=== PATIENT | male | born 1945 | race Caucasian/White ===

== ENCOUNTER → 2021-03-08 09:15 | Outpatient (BNVA) | payer MEDICARE, SELFPAY | PROVIDERS: Family Provider Family Medicine; PCP Emergency Medicine Emergency Medical Services; Visit Provider Internal Medicine Pulmonary Disease | DX: Z01.812 Encounter for preprocedural laboratory examination (principal); Z20.822 Contact with and (suspected) exposure to COVID-19 | CPT/HCPCS: 87635 ==

== ENCOUNTER 2021-03-14 11:14 | Outpatient (CLI) | payer OTHER, MEDICARE, SELFPAY ==
--- NOTE | 2021-03-14 13:33 | PFTS_ITS ---
Date of Study:03/14/21 Date of Dictation: 03/14/2021 MECHANICS: Prebronchodilator forced vital capacity (FVC) is reduced. Prebronchodilator forced expiratory volume in one second (FEV1) is moderately reduced 58%.. FEV1/FVC is normal.. No postbronchodilator study performed. FLOW VOLUME LOOP: End expiratory limb scoping suggestive of small airway obstruction . LUNG VOLUMES: Not measured DIFFUSING CAPACITY FOR CARBON MONOXIDE: Severely reduced 34% . INTERPRETATION: The prebronchodilator spirometry consistent with moderate restriction. Lung volumes not measured. There is severe gas transfer defect. Please correlate clinically. MTDD
== END 2021-03-14 11:15 | disposition home or self-care (01) ==
PROVIDERS: PCP Emergency Medicine Emergency Medical Services; Visit Provider Internal Medicine Pulmonary Disease
DX: J44.9 Chronic obstructive pulmonary disease, unspecified (principal)
CPT/HCPCS: 94010; 94729

== ENCOUNTER 2021-04-12 10:40 | Outpatient (CLI) | payer OTHER, SELFPAY ==
--- NOTE | 2021-04-12 10:48 | CT_ITS ---
WS: [id number] LDCT LUNG CANCER SCREENING HISTORY: lung screening TECHNIQUE: Axial imaging performed from the apices to 1 cm below the costophrenic angles. Coronal and sagittal reformats are submitted with axial MIP series. All CT scans at [facility] use at least one of these dose optimization techniques: automated exposure control; mA and/or kV adjustment per patient size (includes targeted exams where dose is matched to clinical indication); or iterativ e reconstruction. DLP: 82.80 mGy.cm DIvol: Mean CTDIvol: 1.60 (mGy) COMPARISON: 10/20/2008 Diagnostic quality: Suboptimal due to significant motion artifact. Lung Nodules: Large soft tissue mass in the LEFT upper lobe with a mean diameter of 4.4 cm. This is a n elongated, ovoid mass anterior LEFT lobe mass. Additional area of atelectasis towards the lingula. With this amount of motion small nodules would be easily obscured. Very small layering pleural effusi ons or pleural thickening. Lungs: Pulmonary hyperexpansion from emphysema. Heart: Mild enlargement of the heart. Prior CABG. Pericardial effusion. Other findings: Dilated pulmonary artery to 4.2 cm. There is increased soft tissue at the LEFT hilum. This may be due to pulmonary enlargement of the lymph nodes should be considered taking into conside ration the mass in the LEFT upper lobe. Severe motion artifact through the upper abdomen. Extensive a therosclerotic changes within the suprarenal abdominal aorta with heavy calcification involving the c eliac axis and SMA. Mild hyperplasia of the adrenal glands. LEFT adrenal adenoma or hyperplasia was a lso seen on 2009 examination. Increase in thoracic kyphosis. CT/CT lung screening [id number] IMPRESSION: LUNG-RADS: 4B-Suspicious FOLLOW UP: PET/CT recommended OTHER FINDINGS (S MODIFIER): None. LEFT upper lobe mass highly suspicious for neoplasm until proven otherwise. Bro nchoscopy and PET/CT imaging recommended. LEFT hilar adenopathy not excluded.
== END 2021-04-12 10:41 | disposition home or self-care (01) ==
LOC: RAD 10:45
PROVIDERS: PCP Emergency Medicine Emergency Medical Services; Visit Provider Internal Medicine Pulmonary Disease
DX: Z12.2 Encounter for screening for malignant neoplasm of respiratory organs (principal); Z87.891 Personal history of nicotine dependence
CPT/HCPCS: 71271

== ENCOUNTER 2021-05-19 08:43 | Outpatient (CLI) | payer OTHER, SELFPAY ==
[2021-05-19 10:26] LABS: INR 1.11 (0.8-1.2)
[2021-05-19 10:48] VITALS: BMI 37.2
--- NOTE | 2021-05-19 12:29 | SUR.PREOP ---
pt arrived to be prepared for CT guided lung biopsy pt was placed into room and iv was started blood was drawn for pt/inr those results were pt 14.60 inr 1.11 while waiting on results to return the pt summary of meds and allergies was covered a new finding of an adverse reaction to contrast dye was stated by the pt while going over the pt med list the pt was taking 325mg of aspirin daily, cilostazol 50mg BID, and 1000mg fish oil the pt stated that he had taken all of these meds the day prior to this procedure was to take place once the results for the pt/inr came back Dr. Juarez came and discussed the medications with the pt and the decision was made to not have the procedure today and to reschedule for next week so the pt can be off of these meds to increase the pt safety level and keep bleeding to a minimum
== END 2021-05-19 13:11 | disposition home or self-care (01) ==
LOC: RAD 08:45
PROVIDERS: Radiology Diagnostic Radiology; PCP Emergency Medicine Emergency Medical Services; Visit Provider Internal Medicine Pulmonary Disease
DX: J44.9 Chronic obstructive pulmonary disease, unspecified (principal); I50.23 Acute on chronic systolic (congestive) heart failure; Z87.891 Personal history of nicotine dependence; I25.10 Atherosclerotic heart disease of native coronary artery without angina pectoris; Z12.2 Encounter for screening for malignant neoplasm of respiratory organs; I50.9 Heart failure, unspecified; R91.8 Other nonspecific abnormal finding of lung field
CPT/HCPCS: 36415; 85610; 87635; 99214; J2250; J3010; J7030

== ENCOUNTER → 2021-05-23 05:51 | Day surgery (SDC) | payer OTHER, SELFPAY ==
[2021-05-22 10:29] VITALS: BMI 35.6
--- NOTE | 2021-05-23 05:56 | ECG_ITS ---
[facility] Test Date: 2021-05-23 Pat Name: Tobias Song Department: Room: Gender: Male [employer]er: : 1945 Requested By: Veronica Marquis Order Number: [id number] Beverley MD: Valerio Das M.D. Measurements Intervals [place] Rate: 72 P: GA: QRS: 92 QRSD: 129 T: -4 QT: 408 QTc: 448 Interpretive Statements ATRIAL FIBRILLATION BORDERLINE RIGHT AXIS DEVIATION [QRS AXIS > 90] Possible INFERIOR MYOCARDIAL INFARCTION , PROBABLY OLD [40+ ms Q WAVE AND/OR ST/T ABNORMALITY IN II/aVF] Compared to ECG 09/08/2015 05:34:34 No significant changes Electronically Signed On 05-24-2021 16:57:43 CDT by Valerio Das M.D. [id number]
--- NOTE | 2021-05-23 06:28 | ANES.PREANE2 ---
Pre-Anesthetic Assessment Height/Weight: Height 1.91 m Weight 129.274 kg Operation Date: 05/23/21 07:00 Proposed Procedures p Silvia [id number]/[id number](Not Applicable) - Stephon Morales MD s Ebus(Not Applicable) - Stephon OspinarMD Was Beta Mirza taken within 24 hours: Yes Social No alcohol and No tobacco Exam alert, oriented x 3, clear to auscultation bilaterally and regular rate & rhythm Airway Submandibular: within normal limits Cervical ROM: within normal limits Mallampati: Class II Dentition: partials History/ROS No significant complaints Pulmonary Chronic Obstructive Pulmonary Disease, Exertional Dyspnea, Sleep Apnea (Does not use/tolerate CPAP, on home O2) and Shortness of Breath PFTS 03/14/21 INTERPRETATION: The prebronchodilator spirometry consistent with moderate restriction.? Lung volumes not measured.? There is severe gas transfer defect.? Please correlate clinically. CT 04/12/21 LEFT upper lobe mass highly suspicious for neoplasm until proven otherwise. Bronchoscopy and PET/CT imaging recommended. LEFT hilar adenopathy not excluded. CV/HEM Arrythmia (Afib), Coronary Artery Disease (S/P CABG) and Congestive Heart Failure METS < 4 None reported Hepatic None reported GI None reported Metabolic Diabetes Mellitus Musc/skel Osteoarthritis/DJD Neuropsych None reported Anesthetic Plan ASA status: 4 Anesthesia: Anesthesia Evaluation and General Other: Reviewed chart, new onset atrial fibrillation. No recent Echo. Discussed with Doctor Anair. He is planning on getting a TTE as part of his pulmonary work up. Given limited diagnostic cardiac follow up, poor functional capacity, new onset afib, and plan for TTE case cancelled for cardiac work up and TTE. Risk of > 500 ml blood loss (7ml/kg in children): No Medications/Allergies Home Medications Medication Instructions Recorded Confirmed Last Taken Type albuterol sulfate 90 mcg/actuation 2 puff INHALATION Q6H PRN 01/25/21 05/23/21 05/22/21 History aerosol inhaler (ProAir HFA) aspirin 325 mg capsule 325 mg PO QDAY cap 01/25/21 05/23/21 05/18/21 History cholecalciferol (vitamin D3) 25 25 mcg PO DAILY 01/25/21 05/23/21 05/18/21 History mcg (1,000 unit) capsule cilostazol 100 mg tablet 50 mg PO BID tab 01/25/21 05/23/21 05/18/21 History empagliflozin 10 mg tablet 10 mg PO DAILY 01/25/21 05/22/21 05/22/21 History (Jardiance) insulin glargine 100 unit/mL 3 unit SUBCUT .evening ml 01/25/21 05/23/21 05/22/21 History subcutaneous solution (Lantus 1.5 units U-100 Insulin) lisinopril 40 mg tablet 20 mg PO BID tab 01/25/21 05/23/21 05/22/21 History nebulizers #1 ea 01/25/21 05/19/21 Unknown Rx omega-3 fatty acids 1,000 mg 1,000 mg PO BID 01/25/21 05/23/21 05/18/21 History capsule (Fish Oil Concentrate) rosuvastatin 40 mg tablet 20 mg PO DAILY tab 01/25/21 05/23/21 05/22/21 History sertraline 100 mg tablet 100 mg PO DAILY 01/25/21 05/22/21 05/22/21 History topiramate 200 mg tablet 200 mg PO BID 01/25/21 05/22/21 05/22/21 History carvedilol 12.5 mg tablet 6.25 mg PO BID tab 02/01/21 05/23/21 05/23/21 History furosemide 20 mg tablet 20 mg PO DAILY PRN 02/01/21 05/23/21 05/21/21 History multivitamin 1 tab PO DAILY 02/01/21 05/23/21 05/18/21 History budesonide 160 mcg-glycopyr 9 2 inh INHALATION BID #10.7 g 05/19/21 05/22/21 05/22/21 Rx mcg-formot 4.8 mcg/actuation HFA inhaler (Breztri Aerosphere) tamsulosin 0.4 mg capsule 0.4 mg PO DAILY 05/19/21 05/22/21 05/22/21 History Allergies Allergy/AdvReac Type Severity Reaction Status Date / Time Iodinated Contrast Media Allergy ADR-Itching Verified 05/22/21 10:19 PFS Anesthesia Social History Smoking and tobacco status: former smoker Quit status (tobacco): has quit using tobacco Year quit tobacco: 2020 Former quit date comment: 3ppd x 63years, started age 13 Data Anesthesia Cardiac Studies: No Data to Display
[2021-05-23 06:30] VITALS: BP 161/86; PULSE 78; RESP 20; TEMP 36.1; O2SAT 91
[2021-05-23] MEDS: sodium chloride 0.9% 1,000 ML 30 ML IV (06:38)
--- NOTE | 2021-05-23 07:37 | PM.MISC ---
Miscellaneous Note Purpose of Documentation: Patient here for navigational Bronchoscopy guided biopsy of ?elongated, ovoid mass anterior LEFT Upper lobe mass. Improved. His EKG showed new onset atrial fibrillation.Currently rate controlled.I cancelled procedure and recommended to see cardiology as soon as possible and will obtain echocardiogram. Meanwhile I will talk to radiology to see if they can get CT-guided biopsy And after cardiology clearance I will plan to do navigational/EBUS For staging
== END ==
PROVIDERS: PCP Emergency Medicine Emergency Medical Services; Visit Provider Internal Medicine Pulmonary Disease
PROC: 0BJ08ZZ Inspection of Tracheobronchial Tree, Via Natural or Artificial Opening Endoscopic (ICD-10-PCS; CPT 31622; principal; 2021-05-23 07:00)
PROC: BB4BZZZ Ultrasonography of Pleura (ICD-10-PCS; 2021-05-23 07:00)
DX: R91.8 Other nonspecific abnormal finding of lung field (principal); I48.91 Unspecified atrial fibrillation; Z53.8 Procedure and treatment not carried out for other reasons; G47.30 Sleep apnea, unspecified; Z99.81 Dependence on supplemental oxygen; I25.10 Atherosclerotic heart disease of native coronary artery without angina pectoris; Z95.1 Presence of aortocoronary bypass graft; I50.9 Heart failure, unspecified; E11.9 Type 2 diabetes mellitus without complications; M19.90 Unspecified osteoarthritis, unspecified site; Z79.82 Long term (current) use of aspirin; Z79.4 Long term (current) use of insulin; Z87.891 Personal history of nicotine dependence
CPT/HCPCS: 80048; 83880; 84443; 85025; 93005; 99214; 99215; J1100; J2370; J2405; J2704; J3010; J3490; J7030

== ENCOUNTER 2021-05-26 07:47 | Outpatient (CLI) | payer OTHER, SELFPAY ==
[2021-05-26] VITALS (19 sets, daily range): BP systolic 131–177; BP diastolic 59–113; PULSE 42–99; RESP 12–38; TEMP 36.4–36.8; O2SAT 91–98; BMI 36.2
[2021-05-26] MEDS: sodium chloride 0.9% 1,000 ML 30 ML IV (08:41)
--- NOTE | 2021-05-26 08:46 | CT_ITS ---
WS: [id number] CT-GUIDED BIOPSY LEFT LUNG. HISTORY: left upper lobe nodule DLP: 1630.[address] scans at [facility] use at least one of these dose optimization techniques: automated e xposure control; mA and/or kV adjustment per patient size (includes targeted exams where dose is matc hed to clinical indication); or iterative reconstruction. Prior imaging studies, history and physical are reviewed. Procedure, risks and complications were exp lained to the patient and family. Consent is obtained. Soft tissue mass with adjacent groundglass attenuation atelectasis is localized to the LEFT upper lob e. This mass is targeted for biopsy. Skin is cleansed with 1 ChloraPrep and anesthetized with lidocai ne. Through a small dermatome a 20-gauge coaxial needle is inserted into the mass with no difficulty. 3 core biopsies are performed and placed in saline. Patient tolerated the procedure well. There is fullness also at the LEFT hilum with narrowing of the proximal LEFT upper lobe bronchus. The re is additional none soft tissue nodule in the RIGHT upper lobe measuring 1.9 x 1.7 cm. There is a s mall layering pleural effusion. No significant amount of bleeding at the biopsy site and no pneumothorax was evident at the end of th is examination. CT/CT biopsy lung [id number] IMPRESSION: 1. Uncomplicated core biopsy LEFT upper lobe mass. Specimen is placed in salin e and taken immediately to pathology after the procedure terminated. 2. No apparent complications. 3. Patient will be observed for 2 hours postprocedure for any complications.
[2021-05-26 08:53] LABS: INR 1.05 (0.8-1.2)
[2021-05-26] MEDS: fentaNYL 50 mcg/mL INJ 2mL 25 MCG IVP (10:27)
--- NOTE | 2021-05-26 11:25 | XR_ITS ---
WS: [id number] PORTABLE CHEST HISTORY: post CT guided lung BX, evaluate for pneumothorax. COMPARISON: 09/07/[address] 04/12/2021 No pneumothorax status post LEFT upper lobe mass biopsy. Focal consolidation in the central LEFT lung measures 5.7 x 4.0 cm. There may be a small amount of adjacent hemorrhage. No lobar collapse. RIGHT lung is clear. Cardiac size: Mildly enlarged cardiac silhouette. Prior CABG. Mediastinum/Aorta: Normal mediastinum. No osseous abnormality seen. XR/XR chest 1V portable [id number] IMPRESSION: No pneumothorax status post LEFT lung biopsy.
== END 2021-05-26 12:50 | disposition home or self-care (01) ==
PROVIDERS: Radiology Diagnostic Radiology; PCP Emergency Medicine Emergency Medical Services; Visit Provider Internal Medicine Pulmonary Disease
DX: R91.1 Solitary pulmonary nodule (principal)
CPT/HCPCS: 32408; 36415; 71045; 85610; 88307; 88342; 96374; J3010; J7030

== ENCOUNTER 2021-06-07 10:02 | Outpatient (CLI) | payer OTHER, SELFPAY ==
[2021-06-07 11:44] LABS: Anion Gap 16.2 (5-19); Blood Urea Nitrogen 31 mg/dL (8-23); Calcium 9.1 mg/dL (8.5-10.5); Carbon Dioxide 19 mmol/L (22-29); Chloride 109 mmol/L (98-107); Glucose 180 mg/dL (65-115); NT Pro B Type Natriuretic Pept 792 pg/mL (0-450); Osmolality Calculated 301 mOsm/kg (285-295); Potassium 4.2 mmol/L (3.5-5.1); Sodium 140 mmol/L (136-145)
== END 2021-06-07 10:03 | disposition home or self-care (01) ==
LOC: LAB 10:04
PROVIDERS: PCP Emergency Medicine Emergency Medical Services; Visit Provider Internal Medicine Cardiovascular Disease
DX: I25.10 Atherosclerotic heart disease of native coronary artery without angina pectoris (principal); I25.5 Ischemic cardiomyopathy; I48.91 Unspecified atrial fibrillation
CPT/HCPCS: 80048; 83880

== ENCOUNTER 2021-06-13 12:36 | Outpatient (CLI) | payer OTHER, SELFPAY ==
--- NOTE | 2021-06-13 13:00 | CT_ITS ---
WS: [id number] Exam: CT chest wo con [id number] Date/Time of Exam: 06/13/2021 1:02 PM Reason For Exam: VERAN Protocol DLP: 1699.[address] scans at [facility] use at least one of these dose optimization techniques: automated e xposure control; mA and/or kV adjustment per patient size (includes targeted exams where dose is matc hed to clinical indication); or iterative reconstruction. Compared to CT lung screening exam performed 04/12/2021. An enlarging left hilar mass is noted measuring approximately 7.6 x 7.5 cm. There is left hilar adeno julieta. There is mild narrowing of the distal left lower lobe bronchus. There is associated atelectasi s in the lingula. Single enlarged lymph node seen in the AP window. Mildly prominent nodes seen along the right pulmonary hilum. New 9.5 mm short axis lymph node seen in the retrosternal region. Several other 1 cm lymph nodes seen in the anterior pericarinal region. The trachea is patent. The thoracic aorta is normal in caliber. Coronary artery calcifications noted. 6 mm nodular density seen in the la teral aspect of the right upper lobe too small to characterize. Signs of previous median sternotomy. No destructive bone lesions are seen. Changes in the thoracic spine may indicate ankylosing spondylit is as well as degenerative change. Bilateral adrenal gland enlargement noted. The left adrenal gland appears to be chronically enlarged however there appears to be recent enlargement of the right adrena l gland. Adrenal metastasis not excluded. Possible sludge or tiny stones in the gallbladder. CT/CT chest wo con [id number] IMPRESSION: 1. Enlarging left hilar mass measuring 7.6 x 7.5 cm. This almost surely represe nts malignancy. There is left hilar adenopathy in mild narrowing of the distal left lower lobe bronchus. 2. Mild mediastinal lymphadenopathy. Also new nodularity identified along the d istal right pulmonary hilum that may represent metastatic rebekah disease. Single enlarged lymph node in the AP window. 3. 6 mm nodular density seen in the lateral aspect of the right upper lobe too small to characterize. 4. Chronically enlarged left adrenal gland. There may be recent enlargement of the right adrenal gland. Adrenal metastasis not excluded.
--- NOTE | 2021-06-13 14:15 | USCV_ITS ---
Tobias Song Age: 76 Gender: M : 1945 Exam Date: 06/13/2021 12:50 Ordering Phys: Stephon Morales MD Technologist: Exam Location: [facility] Indication: hx cad BP: 143 / 84 HR: 63 Rhythm: Sinus Technical Quality: MEASUREMENTS (Male / Female) Normal Values 2D ECHO LV Diastolic Diameter PLAX 5.3 cm 4.2 - 5.9 / 3.9 - 5.3 cm LV Systolic Diameter PLAX 3.8 cm IVS Diastolic Thickness 1.2 cm 0.6 - 1.0 / 0.6 - 0.9 cm IVS Systolic Thickness 1.5 cm LVPW Diastolic Thickness 1.7 cm 0.6 - 1.0 / 0.6 - 0.9 cm LVPW Systolic Thickness 1.9 cm LVOT Diameter 2.1 cm LV Ejection Fraction 2D Teich 54.5 % LV Ejection Fraction MOD 2C 60.6 % LV Ejection Fraction 2C AL 61.5 % LA Diameter 4.8 cm M-MODE Aortic Annulus Diameter 3.6 cm LA Ao Ratio MM 1.3 MV E Point Septal Separation 1.3 cm DOPPLER AV Peak Velocity 124.0 cm/s LVOT Peak Velocity 87.0 cm/s AV Area Cont Eq vti 2.5 cm squared AV Area Cont Eq pk 2.4 cm squared MV Area PHT 5.0 cm squared Mitral E to A Ratio 2.7 MV E' Velocity 51.0 cm/s Mitral E to MV E' Ratio 10.8 Mitral E to LV E' Lateral Ratio 8.8 Mitral E to LV E' Septal Ratio 13.9 TR Peak Velocity 155.0 cm/s TR Peak Gradient 9.6 mmHg TV Peak E Velocity 104.0 cm/s Right Atrial Pressure 3.0 mmHg Pulmonary Artery Systolic Pressu 12.6 mmHg PV Peak Velocity 88.0 cm/s FINDINGS Left Ventricle Normal left ventricular size. LV systolic function is normal with EF of 55-60%. No regional wall motion abnormalities. Diastolic function is indeterminate because of atrial fibrillation Right Ventricle The right ventricle is normal in size and function. Right Atrium The right atrium is normal in size. Left Atrium The left atrium is normal in size. Mitral Valve Structurally normal mitral valve without significant stenosis or prolapse. There is trace mitral regurgitation. Aortic Valve Structurally normal aortic valve without significant sclerosis or stenosis. There is no aortic regurgitation. Tricuspid Valve Structurally normal tricuspid valve without significant stenosis or regurgitation. Insufficient TR jet to calculate RVSP Pulmonic Valve Structurally normal pulmonic valve without significant stenosis. There is no pulmonic regurgitation. Pericardium Normal pericardium without effusion. Aorta Normal ascending aorta dimension. CONCLUSIONS LV systolic function is normal with EF of 55-60% Diastolic function is indeterminate because of atrial fibrillation There is trace mitral regurgitation. No comparison studies are available Cresencio Macias MD (Electronically Signed) Final Date: 26 Jun 2021 10:04 S
== END 2021-06-13 12:37 | disposition home or self-care (01) ==
LOC: RAD 12:37
PROVIDERS: PCP Emergency Medicine Emergency Medical Services; Visit Provider Internal Medicine Pulmonary Disease
DX: I25.10 Atherosclerotic heart disease of native coronary artery without angina pectoris
CPT/HCPCS: 71250; 93306

== ENCOUNTER → 2021-07-17 09:02 | Outpatient (BNVA) | payer OTHER, SELFPAY | PROVIDERS: PCP Emergency Medicine Emergency Medical Services; Referring Provider Internal Medicine Hematology & Oncology; Visit Provider Surgery | DX: C80.1 Malignant (primary) neoplasm, unspecified (principal) | CPT/HCPCS: 99202 ==

== ENCOUNTER 2021-07-19 05:44 | Day surgery (SDC) | payer OTHER, SELFPAY ==
[2021-07-18 13:59] VITALS: BMI 36.2
--- NOTE | 2021-07-19 | SCC_ITS ---
Procedure done: Mediport placement 3.7 seconds of fluoroscopic guidance, for a cumulative dose of 1.0 mGy, was provided to Dr. Heaton by the radiology department. C-arm images of the chest were saved for the patient's permanent record. [facility]
--- NOTE | 2021-07-19 05:56 | SC_ITS ---
WS: [id number] Exam: C-arm FL for CVA [id number] Date/Time of Exam: 07/19/2021 8:16 AM Reason For Exam: Left lung cancer Limited anterior-posterior C-arm images of the chest are submitted for evaluation. A right subclavian port has been placed and appears to end in the lower one third of the SVC in good position. The visualized right lung is completely expanded. Postoperative changes secondary to CABG s urgery. No other significant finding on this limited study.
--- NOTE | 2021-07-19 05:56 | XR_ITS ---
WS: [id number] Exam: XR chest 1V portable [id number] Date/Time of Exam: 07/19/2021 8:13 AM Reason For Exam: Postop mediport placement Comparison 09/07/2015. Prominent consolidated area seen in the mid left lung may represent a mass or focal pneumonia. Additi onal infiltrates are noted in the upper and lower left lung as well as the right basal region. The he art is enlarged. Signs of median sternotomy and CABG surgery. A right subclavian central line is note d ending in the lower one third of the SVC. Bony structures are intact. The mediastinum is normal in contour for technique. XR/XR chest 1V portable [id number] IMPRESSION: 1. Prominent focal pulmonary density in the mid left lung suggesting either a m ass or consolidated infiltrate. Additional diffuse infiltrates are seen in the upper and lower left lung and the right basal region. 2. Cardiac enlargement. Right subclavian central line in satisfactory position.
[2021-07-19 06:21] LABS: Glucose Point of Care 144 mg/dL (70-110)
--- NOTE | 2021-07-19 06:47 | P.ANESASSM_ITS ---
Pre-Anesthetic Assessment Height/Weight: Height 1.91 m Weight 131.542 kg Preop Diagnosis: Left lung cancer Operation Date: 07/19/21 07:00 Proposed Procedures p Portacath Placement 33253,C34.12(Not Applicable) - Blair Heaton DO Familial anesthetic complications: None Was Beta Mirza taken within 24 hours: Yes Was Clonidine taken within 24 hours: N/A Last intake: Intake Last Liquid Date 07/18/21 Last Liquid Time 23:00 Last Solid Date 07/18/21 Last Solid Time 17:00 Social No alcohol and No tobacco Exam alert, oriented x 3 and regular rate & rhythm b/l lung sounds diminished Airway Submandibular: within normal limits Cervical ROM: Other (Limited ) Mallampati: Class III Dentition: chipped and partials Comments: Comments: Missing multiple teeth Pulmonary Chronic Obstructive Pulmonary Disease and Sleep Apnea Chronic respiratory failure, on home O2 most of the time Lung cancer Pulmonary htn CV/HEM Atrial Fibrillation, Coronary Artery Disease, Congestive Heart Failure and Hypertension s/p CABG TTE 06/13/21 ? CONCLUSIONS ?LV systolic function is normal with EF of 55-60% ? Diastolic function is indeterminate because of atrial ?fibrillation ? There is trace mitral regurgitation.? ?No comparison studies are available EKG 05/23/21 Interpretive Statements ATRIAL FIBRILLATION BORDERLINE RIGHT AXIS DEVIATION? [QRS AXIS > 90] Possible INFERIOR MYOCARDIAL INFARCTION , PROBABLY OLD [40+ ms Q WAVE AND/OR ST/T ABNORMALITY IN II/aVF] Compared to ECG 09/08/2015 05:34:34 No significant changes Electronically Signed On 05-24-2021 16:57:43 CDT by Valerio Das M.D. [id number]: Chronic Renal Insufficiency Hepatic None reported GI Gastroesophageal Reflux Disease Metabolic Diabetes Mellitus Musc/skel Osteoarthritis/DJD Anesthetic Plan ASA status: 4 (76 year old obese male with lung cancer, DM, respiratory failure on home O2 most of the time, pulmonary htn, CAD, HTN, afib, and hx of CABG, CHF, cardiomyopathy) Anesthesia: Anesthesia Evaluation, General and MAC Other: We discussed risk and benefits of general anesthesia including PONV, sore throat (sometimes severe), corneal abrasion, positioning and peripheral nerve injuries, life threatening allergic reaction, post operative ICU admission requiring prolonged intubation, stroke, heart attack, , and rare incidences of recall. I discussed with the patient risks, goals, and benefits of MAC and general anesthesia. We discussed spectrum of MAC anesthesia including conversion to general as well as possibility of recall of intraoperative stimuli including discomfort/pain. Patient agrees to proceed with MAC or general anesthesia pending further discussion with surgeon. Medications/Allergies Home Medications Medication Instructions Recorded Confirmed Last Taken Type cholecalciferol (vitamin D3) 25 25 mcg PO DAILY 01/25/21 07/18/21 1 Week Ago History mcg (1,000 unit) capsule ~05/19/21 cilostazol 100 mg tablet 50 mg PO BID tab 01/25/21 07/18/21 05/25/21 History insulin glargine 100 unit/mL 3 unit SUBCUT .evening ml 01/25/21 07/18/21 05/25/21 History subcutaneous solution (Lantus U-100 Insulin) lisinopril 40 mg tablet 20 mg PO BID tab 01/25/21 07/18/21 05/25/21 History nebulizers #1 ea 01/25/21 07/18/21 Unknown Rx omega-3 fatty acids 1,000 mg 1,000 mg PO BID 01/25/21 07/18/21 1 Week Ago History capsule (Fish Oil Concentrate) ~05/19/21 rosuvastatin 40 mg tablet 20 mg PO DAILY tab 01/25/21 07/18/21 05/25/21 History sertraline 100 mg tablet 100 mg PO DAILY 01/25/21 07/18/21 05/25/21 History carvedilol 12.5 mg tablet 6.25 mg PO BID tab 02/01/21 07/19/21 07/18/21 History multivitamin 1 tab PO DAILY 02/01/21 07/18/21 1 Week Ago History ~05/19/21 tamsulosin 0.4 mg capsule 0.4 mg PO DAILY 05/19/21 07/18/21 05/24/21 History topiramate 200 mg tablet 200 mg PO DAILY tab 05/23/21 07/18/21 05/25/21 History aspirin 81 mg tablet,delayed 81 mg PO DAILY 06/29/21 07/18/21 Unknown History release empagliflozin 25 mg tablet See Rx Instructions PO DAILY 06/29/21 07/18/21 Unknown History (Jardiance) furosemide 20 mg tablet 20 mg PO DAILY 06/29/21 07/18/21 Unknown History allopurinol 100 mg tablet 100 mg PO TID #40 tab 07/13/21 07/18/21 Unknown Rx Allergies Allergy/AdvReac Type Severity Reaction Status Date / Time Iodinated Contrast Media Allergy ADR-Itching Verified 07/18/21 13:56 PFSH Anesthesia Medical History Chronic obstructive pulmonary disease Hx of type 2 diabetes mellitus Lung cancer SJ (obstructive sleep apnea) Pulmonary hypertension Shortness of breath on exertion Small cell lung cancer, left upper lobe Surgical History History of tonsillectomy and adenoidectomy Hx of abdominal surgery Hx of CABG Hx of foot surgery Hx of hammer toe correction Postsurgical aortocoronary bypass status Family History Mother CAD (coronary artery disease) Family/Other CAD (coronary artery disease) Dementia Diabetes Father CAD (coronary artery disease) Grandfather CAD (coronary artery disease) Grandmother CAD (coronary artery disease) Brother CAD (coronary artery disease) Sister CAD (coronary artery disease) Cancer Lung disease Sister Cancer Other Hypertension Denies family history of Clotting disorder Hyperlipidemia Psychiatric illness Chronic kidney disease (CKD) Suicide Anesthesia complication Bleeding disorder Stroke Social History Smoking and tobacco status: former smoker Quit status (tobacco): has quit using tobacco Year quit tobacco: 2020 Former quit date comment: 3ppd x 62years, started age 13 Alcohol intake: never Data Anesthesia Cardiac Studies: Echocardiogram 06/13/21
[2021-07-19 06:54] VITALS: BP 136/81; PULSE 69; RESP 20; TEMP 36.8; O2SAT 90
--- NOTE | 2021-07-19 06:55 | W.PM.OPSUD ---
Surgery/Procedure H&P Update DATE OF PROCEDURE: July 19, 2021 DATE H&P PERFORMED: 07/17/21 CHANGES TO PREVIOUS DOCUMENTATION: NONE PREOP DIAGNOSIS: Left lung cancer PRIMARY INDICATION FOR PROCEDURE: Left lung cancer PLANNED PROCEDURE: Operation Date: 07/19/21 07:00 Proposed Procedures p Portacath Placement 81374,C34.12(Not Applicable) - Blair Heaton DO
[2021-07-19] MEDS: sodium chloride 0.9% 1,000 ML 30 ML IV (07:00)
[2021-07-19] MEDS: heparin, porcine 1,000 unit/mL INJ 10 mL 10000 UNIT IRRIGATION (07:25)
[2021-07-19 07:55] VITALS: BP 106/58; PULSE 79; RESP 18; TEMP 36.6; O2SAT 92
--- NOTE | 2021-07-19 07:57 | PM.OP ---
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 Chemotherapy access is needed. The risks and benefits of the procedure, including but not limited to, bleeding, infection, infection requiring Mediport removal antibiotic therapy and repeat surgery, damage to surrounding structures, scar, numbness, pain, pneumothorax requiring thoracostomy tube, were explained to the patient. He is understanding of the risks and wishes to proceed. Procedure: Patient was taken to the operating room and placed supine on the operating room table. All bony prominences were padded. She was given IV sedation and monitored throughout the case by the anesthesia personnel. SCDs were placed and turned on. The arms were tucked to the side. Patient received Ancef 2 g preoperatively IV. The bilateral chest wall was prepped and draped in usual sterile fashion using chlorhexidine base prep. Sterile drapes were applied. We did procedure pause prior to beginning. An 18 gauge needle was placed in the right/left subclavian vein. Dark, nonpulsatile blood was aspirated. A guidewire was placed through the needle centrally toward the atrial/vena caval junction. Fluoroscopy visualized good placement. The needle was removed and the guidewire was clipped to the drape with a hemostat. Further local anesthetic was infiltrated in the soft tissues of the right chest wall and a #15 blade was used to make a horizontal skin incision. A subcutaneous Mediport pocket was created using Bovie cautery, dissecting down through the skin and subcutaneous tissues. Meticulous hemostasis was achieved. The Mediport was sutured in position using 3-0 vicryl suture x3. A #15 blade was used to make a small skin maisha around the guidewire insertion area. The Mediport tubing was tunneled through the subcutaneous tissues up to the needle insertion location. A dilator with a peel-away sheath was placed over the guidewire and placed centrally. After measuring with fluoroscopy, the Mediport tubing was cut to length so that the tip would end at the atrial/vena caval junction. The inner cannula and the guidewire were removed, leaving the dilator sheath in place. The Mediport was flushed. The tip of the catheter was inserted through the peel-away sheath and the peel-away sheath removed in the standard fashion. The Mediport was accessed with a straight Cohen needle and dark, nonpulsatile blood was aspirated and flushed using heparinized saline to hep-lock the Mediport. Final fluoroscopy visualization showed no kink in the catheter and the tip of the Mediport tubing near the atrial/vena caval junction. Both skin incisions were thoroughly irrigated and suctioned dry. Meticulous hemostasis noted. The Mediport incision was closed using interrupted 3-0 Vicryl suture for the deep dermal layer and 4-0 Vicryl run to close the skin edge. The right subclavian insertion site incision was closed with a single subcuticular stitch. Skin glue was applied. This was allowed to dry. Patient was awakened from anesthesia and transferred via her cart to the recovery room in stable condition. All needle, sponge, and instrument counts were correct per the operating personnel x2 counts.
--- NOTE | 2021-07-19 07:58 | P.PCN_ITS ---
PACU note Narrative: VSS, Good respiratory effort, report to CREDIT UNION MANAGER Exam: awake
--- NOTE | 2021-07-19 07:58 | PM.PACU ---
PACU note Narrative: VSS, Good respiratory effort, report to PUMP STATION OPERATOR Exam: awake
[2021-07-19 08:00] VITALS: BP 122/63; PULSE 66; RESP 18; O2SAT 91
[2021-07-19 08:05] VITALS: BP 122/66; PULSE 68; RESP 20; O2SAT 91
[2021-07-19 08:10] VITALS: BP 130/75; PULSE 69; RESP 18; TEMP 36.3; O2SAT 92
[2021-07-19] MEDS: HYDROcodone-acetaminophen 5-325 mg Tablet 1 TAB PO (08:39)
[2021-07-19 08:43] VITALS: BP 163/85; PULSE 79; RESP 20; TEMP 36.4; O2SAT 94
--- NOTE | 2021-07-19 09:28 | ANE.PACU2 ---
Inpatient post-anesthesia follow up: Airway intact: Yes Vital signs: Temperature 97.6 F Pulse Rate 79 Respiratory Rate 20 Blood Pressure 163/85 Pulse Oximetry 94 Oxygen Delivery Me thod Nasal Cannula Oxygen Flow Rate 3 Fraction of Inspir ed Oxygen Hydration adequate: Yes Nausea and vomiting: No Pain level: 1 Mental status: Baseline Additional Comments: Baseline O2 requirement
== END 2021-07-19 09:00 | disposition home or self-care (01) ==
PROVIDERS: PCP Emergency Medicine Emergency Medical Services; Visit Provider Surgery
PROC: (CPT 36561; principal; 2021-07-19 07:00)
DX: C34.90 Malignant neoplasm of unspecified part of unspecified bronchus or lung (principal); J44.9 Chronic obstructive pulmonary disease, unspecified; G47.30 Sleep apnea, unspecified; Z99.81 Dependence on supplemental oxygen; I48.91 Unspecified atrial fibrillation; I25.10 Atherosclerotic heart disease of native coronary artery without angina pectoris; I11.0 Hypertensive heart disease with heart failure; I50.9 Heart failure, unspecified; Z95.1 Presence of aortocoronary bypass graft; K21.9 Gastro-esophageal reflux disease without esophagitis; E11.9 Type 2 diabetes mellitus without complications; Z79.82 Long term (current) use of aspirin; Z85.3 Personal history of malignant neoplasm of breast; Z87.891 Personal history of nicotine dependence
CPT/HCPCS: 36561; 36416; 71045; 76000; 77001; 82962; C1788; J0690; J1644; J2704; J3010; J7030

== ENCOUNTER 2021-07-25 08:30 | Oncology outpatient (recurring) (ONCR) | payer OTHER, SELFPAY ==
[2021-06-29 14:30] LABS: Basophils # 0.1 10^3/uL (0.0-0.1); Basophils % 0.6 %; Eosinophils # 0.2 10^3/uL (0.0-0.8); Eosinophils % 2.4 %; Hematocrit 44.6 % (42.0-52.0); Lymphocytes # 2.2 10^3/uL (0.8-4.8); Lymphocytes % 27.3 %; Mean Corpuscular HGB Conc 31.4 g/dL (30.0-36.0); Mean Corpuscular Hemoglobin 30.2 pg (28.0-34.0); Mean Corpuscular Volume 96.1 fl (80-94); Mean Platelet Volume 9.3 fL (7.4-10.4); Monocytes # 0.9 10^3/uL (0.2-0.9); Monocytes % 10.5 %; Neutrophils # 4.75 10^3/uL (1.8-7.7); Neutrophils % 58.8 %; Nucleated Red Blood Cells % 0 %; Platelet Count 214 10^3/cmm (130-400); Red Blood Count 4.64 10^6/uL (4.1-5.3); Red Cell Distribution Width 15.7 % (12.1-15.1); White Blood Count 8.1 10^3/uL (4.0-10.0)
[2021-06-29 15:03] LABS: Alanine Aminotransferase 8 U/L (0-41); Albumin Level 3.5 g/dL (3.5-5.2); Alkaline Phosphatase 78 IU/L (40-130); Aspartate Amino Transferase 14 U/L (0-40); Blood Urea Nitrogen 33 mg/dL (8-23); Calcium 9.1 mg/dL (8.5-10.5); Carbon Dioxide 18 mmol/L (22-29); Chloride 109 mmol/L (98-107); Globulin 4.4 g/dL (1.3-4.6); Glucose 111 mg/dL (65-115); Osmolality Calculated 298 mOsm/kg (285-295); Sodium 140 mmol/L (136-145); Total Bilirubin 0.3 mg/dL (0.15-1.2); Total Protein 7.9 g/dL (6.6-8.7)
[2021-06-29 15:06] LABS: Anion Gap 17.3 (5-19); Potassium 4.3 mmol/L (3.5-5.1)
[2021-07-25 09:15] LABS: Basophils % 0.2 %; Eosinophils # 0.1 10^3/uL (0.0-0.8); Eosinophils % 0.9 %; Lymphocytes # 1.3 10^3/uL (0.8-4.8); Mean Corpuscular HGB Conc 31.7 g/dL (30.0-36.0); Mean Corpuscular Hemoglobin 30.2 pg (28.0-34.0); Mean Corpuscular Volume 95.3 fl (80-94); Mean Platelet Volume 8.8 fL (7.4-10.4); Monocytes # 0.7 10^3/uL (0.2-0.9); Monocytes % 7.7 %; Neutrophils # 6.53 10^3/uL (1.8-7.7); Neutrophils % 75.7 %; Nucleated Red Blood Cells % 0 %; Platelet Count 209 10^3/cmm (130-400); Red Cell Distribution Width 16.2 % (12.1-15.1); White Blood Count 8.6 10^3/uL (4.0-10.0)
[2021-07-25 09:30] VITALS: BMI 36.3
[2021-07-25 09:42] LABS: Alanine Aminotransferase 9 U/L (0-41); Albumin Level 3.6 g/dL (3.5-5.2); Alkaline Phosphatase 68 IU/L (40-130); Anion Gap 15.9 (5-19); Aspartate Amino Transferase 16 U/L (0-40); Blood Urea Nitrogen 26 mg/dL (8-23); Calcium 8.7 mg/dL (8.5-10.5); Carbon Dioxide 22 mmol/L (22-29); Chloride 105 mmol/L (98-107); Globulin 3.6 g/dL (1.3-4.6); Glucose 281 mg/dL (65-115); Osmolality Calculated 303 mOsm/kg (285-295); Potassium 3.9 mmol/L (3.5-5.1); Prostate Specific Antigen 0.216 ng/mL (0-4); Sodium 139 mmol/L (136-145); Total Bilirubin 0.3 mg/dL (0.15-1.2); Total Protein 7.2 g/dL (6.6-8.7)
[2021-07-25] MEDS: sodium chloride 0.9% 250 ML 75 ML IV (12:08)
[2021-07-25] MEDS: diphenhydrAMINE 50 mg/mL SDV 1mL 25 MG IVP (12:09)
[2021-07-25] MEDS: ondansetron 2 mg/ML SDV 2 mL 8 MG IVP (12:11)
[2021-07-25] MEDS: famotidine 20 mg/2 mL INJ IVP (12:13)
[2021-07-25] MEDS: fosaprepitant 150 MG in sodium chloride 0.9% 150 ML 300 MG IV (12:14)
[2021-07-25] MEDS: CARBOplatin 520 MG in sodium chloride 0.9% 500 ML 552 MG IV (15:02)
[2021-07-25 16:33] VITALS: BP 138/74; PULSE 74; RESP 22; TEMP 36.4; O2SAT 98
== END 2021-07-25 23:59 | disposition home or self-care (01) ==
PROVIDERS: PCP Emergency Medicine Emergency Medical Services; Visit Provider Internal Medicine Hematology & Oncology
DX: C34.12 Malignant neoplasm of upper lobe, left bronchus or lung (principal); J44.9 Chronic obstructive pulmonary disease, unspecified; Z99.81 Dependence on supplemental oxygen; G47.30 Sleep apnea, unspecified; I25.10 Atherosclerotic heart disease of native coronary artery without angina pectoris; Z95.5 Presence of coronary angioplasty implant and graft; E11.9 Type 2 diabetes mellitus without complications; Z79.4 Long term (current) use of insulin; Z79.899 Other long term (current) drug therapy; Z51.11 Encounter for antineoplastic chemotherapy
CPT/HCPCS: 36415; 80053; 84153; 85025; 96367; 96375; 96413; 96417; 99204; 99214; 99215; 99999; J1100; J1200; J1453; J2405; J3490; J7040; J7050; J9045; J9181

== ENCOUNTER 2021-08-02 09:25 | Oncology outpatient (recurring) (ONCR) | payer OTHER, SELFPAY ==
[2021-07-26] MEDS: ondansetron 2 mg/ML SDV 2 mL 8 MG IVP (10:54)
[2021-07-26] MEDS: sodium chloride 0.9% 250 ML 75 ML IV (10:54)
[2021-07-26 15:49] VITALS: BP 127/57; PULSE 78; RESP 22; TEMP 36.7; O2SAT 92
[2021-07-27 09:42] VITALS: BP 145/67; PULSE 78; RESP 20; TEMP 36.1; O2SAT 92
[2021-07-27] MEDS: sodium chloride 0.9% 250 ML 75 ML IV (10:03)
[2021-07-27] MEDS: palonosetron 0.25 mg/5 mL SDV IVP (10:03)
[2021-07-27 11:40] VITALS: BP 138/78; PULSE 72; RESP 18; TEMP 36.4; O2SAT 98
[2021-07-27] MEDS: pegfilgrastim 6 mg/0.6 mL Kit (onpro) SUBCUT (13:26)
[2021-08-02 10:04] LABS: Hematocrit 34.8 % (42.0-52.0); Hemoglobin 10.8 g/dL (11.7-16.6); Mean Corpuscular Hemoglobin 30.2 pg (28.0-34.0); Mean Corpuscular Volume 97.2 fl (80-94); Mean Platelet Volume 9.8 fL (7.4-10.4); Platelet Count 61 10^3/cmm (130-400); Red Blood Count 3.58 10^6/uL (4.1-5.3); Red Cell Distribution Width 16.2 % (12.1-15.1); White Blood Count 1.8 10^3/uL (4.0-10.0)
[2021-08-02 10:05] LABS: Alanine Aminotransferase 15 U/L (0-41); Alkaline Phosphatase 80 IU/L (40-130); Anion Gap 14.5 (5-19); Aspartate Amino Transferase 17 U/L (0-40); Blood Urea Nitrogen 74 mg/dL (8-23); Calcium 7.7 mg/dL (8.5-10.5); Carbon Dioxide 20 mmol/L (22-29); Chloride 107 mmol/L (98-107); Globulin 3.3 g/dL (1.3-4.6); Glucose 233 mg/dL (65-115); Osmolality Calculated 313 mOsm/kg (285-295); Potassium 4.5 mmol/L (3.5-5.1); Sodium 137 mmol/L (136-145); Total Bilirubin 0.2 mg/dL (0.15-1.2); Total Protein 6.3 g/dL (6.6-8.7)
[2021-08-02 11:22] LABS: Slide Review Slide Review Perform
[2021-08-02 11:26] LABS: Total Cells Counted 100 (0-100)
[2021-08-02 11:27] LABS: Eosinophils 1 %; Lymphocytes 28 %; Lymphocytes Absolute 0.8 10^3/cmm (1.2-3.4); Platelet Estimate Decreased (Normal); Segmented Neutrophils 54 %
== END 2021-08-24 23:59 | disposition home or self-care (01) ==
PROVIDERS: Nurse Practitioner Family; PCP Emergency Medicine Emergency Medical Services; Visit Provider Internal Medicine Hematology & Oncology
DX: C34.12 Malignant neoplasm of upper lobe, left bronchus or lung (principal); J44.9 Chronic obstructive pulmonary disease, unspecified; E11.59 Type 2 diabetes mellitus with other circulatory complications; I25.5 Ischemic cardiomyopathy; I48.91 Unspecified atrial fibrillation; I25.10 Atherosclerotic heart disease of native coronary artery without angina pectoris; I50.23 Acute on chronic systolic (congestive) heart failure; I11.0 Hypertensive heart disease with heart failure; D70.1 Agranulocytosis secondary to cancer chemotherapy; T45.1X5A Adverse effect of antineoplastic and immunosuppressive drugs, initial encounter; Z79.899 Other long term (current) drug therapy; Z99.81 Dependence on supplemental oxygen; Z87.891 Personal history of nicotine dependence; Z95.5 Presence of coronary angioplasty implant and graft; Z79.4 Long term (current) use of insulin; Z53.9 Procedure and treatment not carried out, unspecified reason
CPT/HCPCS: 36591; 80053; 85007; 85025; 96372; 96375; 96377; 96413; 99215; J2405; J2469; J2506; J7040; J7050; J9181

== ENCOUNTER 2021-08-02 12:21 | Inpatient (IN) | payer OTHER, MEDICARE, SELFPAY ==
[2021-08-02 14:42] VITALS: BP 165/77; PULSE 72; RESP 18; TEMP 37.2; O2SAT 92; BMI 36.3
[2021-08-02 17:25] VITALS: BP 235/183; PULSE 85; RESP 20; O2SAT 94; BMI 36.3
[2021-08-02 17:28] VITALS: O2SAT 97; BMI 36.3
--- NOTE | 2021-08-02 17:29 | XRR_ITS ---
PROCEDURE INFORMATION: Exam: XR Chest Exam date and time: 08/02/2021 5:41 PM Age: 76 years old Clinical indication: Shortness of breath; Additional info: Dyspnea TECHNIQUE: Imaging protocol: XR of the chest. Views: 1 view. COMPARISON: 1. CR XR chest 1V portable [id number] 07/19/2021 8:[address] chest wo con [id number] 06/13/2021 1:10 PM FINDINGS: Tubes, catheters and devices: Right infusion port catheter remains in place with its tip in the superior vena cava. Lungs: Visualized portions of the right lung remain clear. There is left upper lobe mass with increase in volume loss in the left pulmonary apex. There has also been significant increase in left lower lobe atelectasis. Pleural spaces: There may be left pleural effusion. Heart/Mediastinum: There is mild cardiomegaly. Bones/joints: Sternotomy wires and mediastinal surgical clips are present, consistent with previous coronary arterial bypass grafting. XR/XR chest 1V portable [id number] IMPRESSION: 1. Left upper lobe mass probably not significantly changed. 2. Increasing left-sided atelectasis. 3. Suspected left pleural effusion
--- NOTE | 2021-08-02 17:32 | W.ED.GENADLT ---
Documented by User: Pratik Vanegas MD 08/08/21 20:33 HPI - General Adult General: Chief complaint: ER Hold Stated complaint: Low blood Counts, Low bp Time Seen by Provider: 08/02/21 17:09 History of Present Illness: Patient is a 76-year-old male with history of COPD, lung cancer currently on chemotherapy followed by Dr. Patricio presenting to the emergency room for concerns of lab abnormality and generalized weakness, and decreased p.o. intake. Patient tells me last from chemotherapy was 6 days ago. Since then, patient had 1 episode fever shortly after chemotherapy patient has not had any fever in the last few days. Patient tells me that he has not been eating well and has been having cough shortness of breath. Patient also reports falling [address] Patricio called the emergency room after routine blood work earlier today and requested patient stay in the hospital for observation. Onset: 6 days ago Duration:6 days Location:home Severity:moderate Associated symptoms: Reports malaise and nausea; Deny chest pain, dyspnea, rash, palpitations or vomiting Review of Systems Const: Reports: fatigue, malaise and other (+generalized weakness); Denies: fever(s) or chills Eyes: Denies: change in vision ENMT: Denies: mouth pain Card: Denies: chest pain or palpitations Resp: Reports: non-productive cough; Denies: dyspnea GI: Reports: nausea, diarrhea and other (+decreased appetite); Denies: abdominal pain or vomiting : Denies: dysuria Musc: Denies: extremity pain Skin/Breast: Denies: rash or new lesions Neuro: Denies: weakness in extremities Psych: Reports: other (Normal mood) Chucky/Lymph: Denies: easy bruising PFSH ED PFSH: Medical History Anxiety and depression BPH (benign prostatic hyperplasia) Chronic obstructive pulmonary disease Baseline 3 L oxygen CKD (chronic kidney disease) Hx of type 2 diabetes mellitus Ischemic cardiomyopathy Lung cancer New onset atrial fibrillation Obesity hypoventilation syndrome SJ (obstructive sleep apnea) Peripheral vascular disease Pulmonary hypertension Shortness of breath on exertion Small cell lung cancer, left upper lobe Surgical History (Updated 08/03/21 @ 14:45 by Get Orantes MD) History of tonsillectomy and adenoidectomy Hx of abdominal surgery Hx of appendectomy Hx of CABG Hx of foot surgery Hx of hammer toe correction Postsurgical aortocoronary bypass status Family History Mother CAD (coronary artery disease) Family/Other CAD (coronary artery disease) Dementia Diabetes Father CAD (coronary artery disease) Grandfather CAD (coronary artery disease) Grandmother CAD (coronary artery disease) Brother CAD (coronary artery disease) Sister CAD (coronary artery disease) Cancer Lung disease Sister Cancer Other Hypertension Denies family history of Clotting disorder Hyperlipidemia Psychiatric illness Chronic kidney disease (CKD) Suicide Anesthesia complication Bleeding disorder Stroke Social History Smoking and tobacco status: former smoker Quit status (tobacco): has quit using tobacco Year quit tobacco: 2020 Former quit date comment: 3ppd x 63years, started age 13 Alcohol intake: never Physical Exam Const: COMMON NORMALS: alert HENMT: COMMON NORMALS: atraumatic HEAD & SCALP: atraumatic MOUTH: moist mucous membranes abnormal Eye: COMMON NORMALS: EOMs intact bilaterally and conjunctivae normal CONJUNCTIVA: Yes conjunctivae normal Neck/C-Spine: COMMON NORMALS: full ROM and supple Resp: COMMON NORMALS: normal respiratory effort OTHER: +coarse breath sound sb/l Cardio: COMMON NORMALS: regular rate RATE: regular rate GI: COMMON NORMALS: Soft to palpation and non-tender PALPATION: Yes Soft to palpation Extremity: COMMON NORMALS: full ROM Neuro: SENSORIUM/ORIENTATION: Yes alert MOTOR EXAM: No Abnormal motor strength present and Other motor observations present (no focal motor deficits) Psych: COMMON NORMALS: speech normal SPEECH: Yes normal speech MOOD & AFFECT: Yes euthymic mood Course Vital Signs: Vital signs: Vital Signs Temperature 97.9 F 08/06/21 18:00 Pulse Rate 70 08/06/21 23:52 Respiratory Rate 16 08/06/21 23:52 Blood Pressure 133/110 08/06/21 23:52 Pulse Oximetry 93 08/06/21 23:[address] [facility] - General Adult Medical Decision Making 76-year-old male with history of lung adenocarcinoma currently on chemotherapy presenting to the emergency room with decreased p.o. intake, generalized weakness, cough, concern for neutropenia. Patient currently is afebrile. Rest of blood work showed creatinine 1.8 similar to baseline. X-ray chest negative for any acute findings. UA negative for UTI. Patient received 500c fluid however still unable to tolerate p.o. given the fact the patient has acute failure to thrive, ongoing diarrhea, persistent cough, generalized weakness, patient will need further management inpatient. I have discussed case with Dr. Patricio at 8:55 PM who strongly recommended admission at this time. Disposition: admission Lab Data : 08/06/21 06:40 08/06/21 06:[address] 08/02/21 23:54 IMPRESSION: 1. Left upper lobe atelectasis. 2. Large left pleural effusion 3. Small right pleural effusion 4. Mildly increased mediastinal adenopathy 5. No change right upper lobe mass 6. Increased interstitial densities in the right lung which could represent interstitial edema versus is lymphangitic metastasis. 7. Mild right hilar adenopathy Thoracentesis Ultrasound 08/03/21 09:59 IMPRESSION: Uncomplicated ultrasound-guided thoracentesis. Foot X-Ray 08/04/21 09:42 IMPRESSION: 1. Bony destruction of the distal end of the distal phalanx of great toe with soft tissue swelling suspicious for acute osteomyelitis. 2. Mild degenerative changes. Vascular calcifications about the foot and ankle. Heel spurs. Duplex Scan Lower Extremity Artery 08/04/21 11:52 IMPRESSION: 1. Right lower extremity biphasic blood flow seen in the iliac, common femoral, proximal and mid femoral arteries reflecting a degree of stenosis. 2. Right lower extremity monophasic blood flow seen in the distal femoral artery, popliteal artery and dorsalis pedis artery reflecting a degree of stenosis. 3. Left lower extremity monophasic blood flow extending from the common femoral artery through the dorsalis pedis artery reflecting a degree of stenosis. Chest X-Ray 08/06/21 13:55 IMPRESSION: 1. Proper positioning of lines and tubes. 2. Similar focal opacity/atelectasis in the left upper lobe. Laboratory Results WBC 1.0 10^3/uL (4.0-10.0) L 08/03/21 11:05 RBC 3.66 10^6/uL (4.1-5.3) L 08/03/21 11:05 Hgb 11.0 g/dL (11.7-16.6) L 08/03/21 11:05 Hct 34.5 % (42.0-52.0) L 08/03/21 11:05 MCV 94.3 fl (80-94) H 08/03/21 11:05 MCH 30.1 pg (28.0-34.0) 08/03/21 11:05 MCHC 31.9 g/dL (30.0-36.0) 08/03/21 11:05 RDW 15.9 % (12.1-15.1) H 08/03/21 11:05 Plt Count 45 10^3/cmm (130-400) L 08/03/21 11:05 MPV 10.1 fL (7.4-10.4) 08/03/21 11:05 Neut % (Auto) 5.0 % 08/03/21 11:05 Lymph % (Auto) 89.0 % 08/03/21 11:05 [place] % (Auto) 3.0 % 08/03/21 11:05 Eos % (Auto) 2.0 % 08/03/21 11:05 Baso % (Auto) 1.0 % 08/03/21 11:05 Neut # (Auto) 1.00 10^3/uL (1.8-7.7) L 08/03/21 11:05 Lymph # (Auto) 0.9 10^3/uL (0.8-4.8) 08/03/21 11:05 [place] # (Auto) 0.0 10^3/uL (0.2-0.9) L 08/03/21 11:05 Eos # (Auto) 0.0 10^3/uL (0.0-0.8) 08/03/21 11:05 Baso # (Auto) 0.0 10^3/uL (0.0-0.1) 08/03/21 11:05 Nucleated RBC % (auto) 0 % 08/03/21 11:05 Nucleated RBCs # 0.0 /100WBC 08/03/21 11:05 Differential Comment Yes 08/03/21 13:40 PT 14.30 SECONDS (12.1-14.9) 08/03/21 11:05 INR 1.08 (0.8-1.2) 08/03/21 11:05 APTT 35.3 SECONDS (23.9-36.7) 08/03/21 11:05 Specimen Type Arterial 08/03/21 07:17 Sample Site Brachial, left 08/03/21 07:17 ABG pH 7.26 (7.35-7.45) L 08/03/21 07:17 ABG pCO2 46.4 mmHg (35-45) H 08/03/21 07:17 ABG pO2 71.3 mmHg (80.0-100.0) L 08/03/21 07:17 ABG HCO3 20.5 mmol/L (22-26) L 08/03/21 07:17 ABG O2 Saturation 93.1 08/03/21 07:17 ABG Base Excess -6.5 mmol/L (-2.0-2.0) L 08/03/21 07:17 Valentino Test N/a 08/03/21 07:17 A-a O2 Gradient 24.2 mmHg (5-10) H 08/03/21 07:17 Hematocrit 36.2 % (42-52) L 08/03/21 07:17 Hgb O2 Saturation 90.7 % (95-100) L 08/03/21 07:17 Carboxyhemoglobin 2.0 %THgb (0.4-20.1) 08/03/21 07:17 Methemoglobin 0.7 % (0.4-1.5) 08/03/21 07:17 Total Hemoglobin 11.8 g/dL (14-18) L 08/03/21 07:17 Sodium 142.0 mmol/L (131-143) 08/03/21 07:17 Potassium 4.8 mmol/L (3.5-5.0) 08/03/21 07:17 Glucose 151.0 mg/dL (70-115) H 08/03/21 07:17 Ionized Calcium 1.2 mmol/L (1.1-1.4) 08/03/21 07:17 O2 Delivery Device Nc 08/03/21 07:17 O2 Liters/Min 6.0 % 08/03/21 07:17 FiO2 44.0 % 08/03/21 07:17 Flight Test Data Acquisition Technician ID Amh 08/03/21 07:17 Sodium 138 mmol/L (136-145) 08/03/21 11:05 Potassium 4.9 mmol/L (3.5-5.1) 08/03/21 11:05 Chloride 108 mmol/L (98-107) H 08/03/21 11:05 Carbon Dioxide 20 mmol/L (22-29) L 08/03/21 11:05 Anion Gap 14.9 (5-19) 08/03/21 11:05 BUN 61 mg/dL (8-23) H 08/03/21 11:05 Creatinine 1.4 mg/dL (0.7-1.2) H 08/03/21 11:05 GFR Calculation Not Reportable 08/03/21 11:05 Glucose 145 mg/dL (65-115) H 08/03/21 11:05 Calculated Osmolality 306 mOsm/kg (285-295) H 08/03/21 11:05 Lactic Acid 0.8 mmol/L (0.5-2.2) 08/03/21 11:05 Calcium 8.1 mg/dL (8.5-10.5) L 08/03/21 11:05 Total Bilirubin 0.4 mg/dL (0.15-1.2) 08/03/21 11:05 AST 15 U/L (0-40) 08/03/21 11:05 ALT 14 U/L (0-41) 08/03/21 11:05 Alkaline Phosphatase 74 IU/L (40-130) 08/03/21 11:05 Troponin T Baseline 71 ng/L (0-15) H 08/03/21 00:55 Troponin T 120 Minute 66.24 ng/L (0-15) H 08/03/21 02:00 Delta Troponin T -4.76 ABS# (0-10) L 08/03/21 02:00 Troponin T Hi Sens 6Hr 72.66 ng/L (0-15) H 08/03/21 06:45 Troponin T Hi Sens 6Hr Delta 1.66 ng/L (0-12) 08/03/21 06:45 NT-Pro-B Natriuret Pep 2858 pg/mL (0-450) H 08/03/21 00:55 Total Protein 6.3 g/dL (6.6-8.7) L 08/03/21 11:05 Albumin 2.9 g/dL (3.5-5.2) L 08/03/21 11:05 Globulin 3.4 g/dL (1.3-4.6) 08/03/21 11:05 Urine Color Yellow (Yellow) 08/03/21 08:28 Urine Appearance Clear (CLEAR) 08/03/21 08:28 Urine pH 5 (5-7) 08/03/21 08:28 Ur Specific Chapman 1.015 (1.005-1.030) 08/03/21 08:28 Urine Protein 1+ (Negative) H 08/03/21 08:28 Urine Glucose (UA) 4+ (Normal) H 08/03/21 08:28 Urine Ketones Negative (Negative) 08/03/21 08:28 Urine Blood 2+ (Negative) H 08/03/21 08:28 Urine Nitrate Negative (Negative) 08/03/21 08:28 Urine Bilirubin Neg (Negative) 08/03/21 08:28 Urine Urobilinogen Norm mg/dL (Negative) 08/03/21 08:28 Ur Leukocyte Esterase Negative (Negative) 08/03/21 08:28 Urine RBC 0-4 /hpf (0-2) H 08/03/21 08:28 Urine WBC 0-4 /hpf (0-5) H 08/03/21 08:28 Ur Squamous Epith Cells None /hpf (0-5) 08/03/21 08:28 Amorphous Sediment Not Reportable 08/03/21 08:28 Urine Bacteria 2+ /hpf (NONE) H 08/03/21 08:28 Urine Mucus N /hpf 08/03/21 08:28 Fluid Color Yellow 08/03/21 13:40 Fluid Appearance Clear 08/03/21 13:40 Fluid WBC 800 /uL 08/03/21 13:40 Fluid RBC 4.000 10^3/uL 08/03/21 13:40 Fluid Hematocrit 0.0 % 08/03/21 13:40 Fld Polynuclear WBCs # 0.067 08/03/21 13:40 Fld Polynuclear WBCs % 8.300 % 08/03/21 13:40 Fl Mononucl WBCs #(Auto) 0.733 08/03/21 13:40 Fl Mononuclear % Auto 91.700 % 08/03/21 13:40 Fluid Albumin 1.1 g/dL 08/03/21 13:40 Fluid Creatinine 1.57 (0.7-1.2) H 08/03/21 13:40 Pleural pH 7.00 (6.5-7.5) 08/03/21 13:40 Pleural Total Protein 2.0 g/dL 08/03/21 13:40 Pleural LDH 136 U/L 08/03/21 13:40 Pleural Glucose 161.0 mg/dL 08/03/21 13:40 Pleural Amylase 36.0 U/L 08/03/21 13:40 Pleural Triglycerides 9 mg/dL 08/03/21 13:40 Nasal Influ A H1 2009 PCR Not detected (NOT DETECT) 08/02/21 19:01 Salicylates < 0.3 mg/dL (3-10) L 08/03/21 11:05 Serum Ketones Negative (Negative) 08/03/21 11:05 Adenovirus (PCR) Not detected (NOT DETECT) 08/02/21 19:01 C. pneumoniae DNA (PCR) Not detected (NOT DETECT) 08/02/21 19:01 Coronavirus 229E (PCR) Not detected (NOT DETECT) 08/02/21 19:01 Human Metapneumovir PCR Not detected (NOT DETECT) 08/02/21 19:01 Influenza A (H1) PCR Not detected (NOT DETECT) 08/02/21 19:01 Influenza A (H3) PCR Not detected (NOT DETECT) 08/02/21 19:01 Influenza Type A (PCR) Not detected (NOT DETECT) 08/02/21 19:01 Influenza Type B (PCR) Not detected (NOT DETECT) 08/02/21 19:01 M. pneumoniae (PCR) Not detected (NOT DETECT) 08/02/21 19:01 Parainfluenza 1 (PCR) Not detected (NOT DETECT) 08/02/21 19:01 Parainfluenza 2 (PCR) Not detected (NOT DETECT) 08/02/21 19:01 Parainfluenza 3 (PCR) Not detected (NOT DETECT) 08/02/21 19:01 Parainfluenza 4 (PCR) Not detected (NOT DETECT) 08/02/21 19:01 RSV Type A (PCR) Not detected (NOT DETECT) 08/02/21 19:01 RSV Type B (PCR) Not detected (NOT DETECT) 08/02/21 19:01 Entero/Rhino (PCR) Not detected (NOT DETECT) 08/02/21 19:01 SARS-CoV-2 (PCR) Not detected (NOT DETECT) 08/02/21 19:01 Blood Type A Positive 08/02/21 19:20 Rho(D) Type Positive 08/02/21 19:20 Antibody Screen Negative 08/02/21 19:20 Imaging Data Other Imaging: Radiologist's impression: [employer] [address] XRay Report Signed Patient: Tobias Song Unit #: [id number] : 1945 Age/Sex: 76 / M ADM Date: 08/02/21 Loc: ER Room/Bed: Attending Dr: Ordering Provider/Ordering MD: Pratik Vanegas MD Date of Service: 08/02/21 Procedure(s): XR chest 1V portable [id number] Accession Number(s): [id number] Report Number: [id number] PROCEDURE INFORMATION: Exam: XR Chest Exam date and time: 08/02/2021 5:41 PM Age: 76 years old Clinical indication: Shortness of breath; Additional info: Dyspnea TECHNIQUE: Imaging protocol: XR of the chest. Views: 1 view. COMPARISON: 1. CR XR chest 1V portable [id number] 07/19/2021 8:[address] chest wo con [id number] 06/13/2021 1:10 PM FINDINGS: Tubes, catheters and devices: Right infusion port catheter remains in place with its tip in the superior vena cava. Lungs: Visualized portions of the right lung remain clear. There is left upper lobe mass with increase in volume loss in the left pulmonary apex. There has also been significant increase in left lower lobe atelectasis. Pleural spaces: There may be left pleural effusion. Heart/Mediastinum: There is mild cardiomegaly. Bones/joints: Sternotomy wires and mediastinal surgical clips are present, consistent with previous coronary arterial bypass grafting. XR/XR chest 1V portable [id number] IMPRESSION: 1. Left upper lobe mass probably not significantly changed. 2. Increasing left-sided atelectasis. 3. Suspected left pleural effusion ? Dictated By: Felice Gallagher Signed By: Felice Gallagher Signed Date/Time: 08/02/211811 DD/ 40 Discharge Plan Discharge Patient Disposition: Admitted As Inpatient Admit Provider: Jeremias Shafer Clinical Impression: Dehydration, Generalized weakness, Malaise, Diarrhea, Decreased appetite, Pleural effusion, Small cell carcinoma of lung, Metabolic acidosis Condition: Stable Sign Out Sign Out Data: Patient Sign Out occurred on 08/02/21 at 23:52. Patient's care was discussed, and care was transferred from to Danial Arceo MD. Patient Sign Out occurred on 08/03/21 at 06:48. Patient's care was discussed, and care was transferred from to Steven Pacheco DO. Coding Level of Care Code ED Metal Organ Pipe Maker for Chg Fwd Exam Comprehensive Documented by User: Steven Pacheco DO 08/03/21 13:01 HPI - General Adult General: Chief complaint: ER Hold Stated complaint: Low blood Counts, Low bp Time Seen by Provider: 08/02/21 17:09 PFSH ED PFSH: Medical History Anxiety and depression BPH (benign prostatic hyperplasia) Chronic obstructive pulmonary disease Baseline 3 L oxygen CKD (chronic kidney disease) Hx of type 2 diabetes mellitus Ischemic cardiomyopathy Lung cancer New onset atrial fibrillation Obesity hypoventilation syndrome SJ (obstructive sleep apnea) Peripheral vascular disease Pulmonary hypertension Shortness of breath on exertion Small cell lung cancer, left upper lobe Surgical History (Updated 08/03/21 @ 14:45 by Get Orantes MD) History of tonsillectomy and adenoidectomy Hx of abdominal surgery Hx of appendectomy Hx of CABG Hx of foot surgery Hx of hammer toe correction Postsurgical aortocoronary bypass status Family History Mother CAD (coronary artery disease) Family/Other CAD (coronary artery disease) Dementia Diabetes Father CAD (coronary artery disease) Grandfather CAD (coronary artery disease) Grandmother CAD (coronary artery disease) Brother CAD (coronary artery disease) Sister CAD (coronary artery disease) Cancer Lung disease Sister Cancer Other Hypertension Denies family history of Clotting disorder Hyperlipidemia Psychiatric illness Chronic kidney disease (CKD) Suicide Anesthesia complication Bleeding disorder Stroke Social History Smoking and tobacco status: former smoker Quit status (tobacco): has quit using tobacco Year quit tobacco: 2020 Former quit date comment: 3ppd x 63years, started age 13 Alcohol intake: never Course Vital Signs: Vital signs: Vital Signs Temperature 97.9 F 08/06/21 18:00 Pulse Rate 70 08/06/21 23:52 Respiratory Rate 16 08/06/21 23:52 Blood Pressure 133/110 08/06/21 23:52 Pulse Oximetry 93 08/06/21 23:52 MDM - General Adult Medical Decision Making 76-year-old male with history of lung adenocarcinoma currently on chemotherapy presenting to the emergency room with decreased p.o. intake, generalized weakness, cough, concern for neutropenia. Patient currently is afebrile. Rest of blood work showed creatinine 1.8 similar to baseline. X-ray chest negative for any acute findings. UA negative for UTI. Patient received 500c fluid however still unable to tolerate p.o. given the fact the patient has acute failure to thrive, ongoing diarrhea, persistent cough, generalized weakness, patient will need further management inpatient. I have discussed case with Dr. Patricio at 8:55 PM who strongly recommended admission at this time. Disposition: admission Patient has been in the emergency room through the night. There is discussion of the hospitalist last night about admitting. Overnight his oxygen demands increased Dr. Arceo done a CT of his chest which showed a sizable pleural effusion. Additionally this morning when I evaluated the patient he was having difficulty breathing he was started on BiPAP and an ABG was done which showed a metabolic acidosis with no anion gap. Discussed with Dr. Orantes we will admit to ICU. Also discussed with Dr. Patricio. He feels the pleural effusion will likely resolve once his treatment is completed and recommends a single thoracentesis rather than placement of a drain. Medical Records I reviewed the patient's medical records. Lab Data I reviewed the patient's lab results. : 08/06/21 06:40 08/06/21 06:[address] 08/02/21 23:54 IMPRESSION: 1. Left upper lobe atelectasis. 2. Large left pleural effusion 3. Small right pleural effusion 4. Mildly increased mediastinal adenopathy 5. No change right upper lobe mass 6. Increased interstitial densities in the right lung which could represent interstitial edema versus is lymphangitic metastasis. 7. Mild right hilar adenopathy Thoracentesis Ultrasound 08/03/21 09:59 IMPRESSION: Uncomplicated ultrasound-guided thoracentesis. Foot X-Ray 08/04/21 09:42 IMPRESSION: 1. Bony destruction of the distal end of the distal phalanx of great toe with soft tissue swelling suspicious for acute osteomyelitis. 2. Mild degenerative changes. Vascular calcifications about the foot and ankle. Heel spurs. Duplex Scan Lower Extremity Artery 08/04/21 11:52 IMPRESSION: 1. Right lower extremity biphasic blood flow seen in the iliac, common femoral, proximal and mid femoral arteries reflecting a degree of stenosis. 2. Right lower extremity monophasic blood flow seen in the distal femoral artery, popliteal artery and dorsalis pedis artery reflecting a degree of stenosis. 3. Left lower extremity monophasic blood flow extending from the common femoral artery through the dorsalis pedis artery reflecting a degree of stenosis. Chest X-Ray 08/06/21 13:55 IMPRESSION: 1. Proper positioning of lines and tubes. 2. Similar focal opacity/atelectasis in the left upper lobe. Laboratory Results WBC 1.0 10^3/uL (4.0-10.0) L 08/03/21 11:05 RBC 3.66 10^6/uL (4.1-5.3) L 08/03/21 11:05 Hgb 11.0 g/dL (11.7-16.6) L 08/03/21 11:05 Hct 34.5 % (42.0-52.0) L 08/03/21 11:05 MCV 94.3 fl (80-94) H 08/03/21 11:05 MCH 30.1 pg (28.0-34.0) 08/03/21 11:05 MCHC 31.9 g/dL (30.0-36.0) 08/03/21 11:05 RDW 15.9 % (12.1-15.1) H 08/03/21 11:05 Plt Count 45 10^3/cmm (130-400) L 08/03/21 11:05 MPV 10.1 fL (7.4-10.4) 08/03/21 11:05 Neut % (Auto) 5.0 % 08/03/21 11:05 Lymph % (Auto) 89.0 % 08/03/21 11:05 [place] % (Auto) 3.0 % 08/03/21 11:05 Eos % (Auto) 2.0 % 08/03/21 11:05 Baso % (Auto) 1.0 % 08/03/21 11:05 Neut # (Auto) 1.00 10^3/uL (1.8-7.7) L 08/03/21 11:05 Lymph # (Auto) 0.9 10^3/uL (0.8-4.8) 08/03/21 11:05 [place] # (Auto) 0.0 10^3/uL (0.2-0.9) L 08/03/21 11:05 Eos # (Auto) 0.0 10^3/uL (0.0-0.8) 08/03/21 11:05 Baso # (Auto) 0.0 10^3/uL (0.0-0.1) 08/03/21 11:05 Nucleated RBC % (auto) 0 % 08/03/21 11:05 Nucleated RBCs # 0.0 /100WBC 08/03/21 11:05 Differential Comment Yes 08/03/21 13:40 PT 14.30 SECONDS (12.1-14.9) 08/03/21 11:05 INR 1.08 (0.8-1.2) 08/03/21 11:05 APTT 35.3 SECONDS (23.9-36.7) 08/03/21 11:05 Specimen Type Arterial 08/03/21 07:17 Sample Site Brachial, left 08/03/21 07:17 ABG pH 7.26 (7.35-7.45) L 08/03/21 07:17 ABG pCO2 46.4 mmHg (35-45) H 08/03/21 07:17 ABG pO2 71.3 mmHg (80.0-100.0) L 08/03/21 07:17 ABG HCO3 20.5 mmol/L (22-26) L 08/03/21 07:17 ABG O2 Saturation 93.1 08/03/21 07:17 ABG Base Excess -6.5 mmol/L (-2.0-2.0) L 08/03/21 07:17 Valentino Test N/a 08/03/21 07:17 A-a O2 Gradient 24.2 mmHg (5-10) H 08/03/21 07:17 Hematocrit 36.2 % (42-52) L 08/03/21 07:17 Hgb O2 Saturation 90.7 % (95-100) L 08/03/21 07:17 Carboxyhemoglobin 2.0 %THgb (0.4-20.1) 08/03/21 07:17 Methemoglobin 0.7 % (0.4-1.5) 08/03/21 07:17 Total Hemoglobin 11.8 g/dL (14-18) L 08/03/21 07:17 Sodium 142.0 mmol/L (131-143) 08/03/21 07:17 Potassium 4.8 mmol/L (3.5-5.0) 08/03/21 07:17 Glucose 151.0 mg/dL (70-115) H 08/03/21 07:17 Ionized Calcium 1.2 mmol/L (1.1-1.4) 08/03/21 07:17 O2 Delivery Device Nc 08/03/21 07:17 O2 Liters/Min 6.0 % 08/03/21 07:17 FiO2 44.0 % 08/03/21 07:17 Flight Test Data Acquisition Technician ID Amh 08/03/21 07:17 Sodium 138 mmol/L (136-145) 08/03/21 11:05 Potassium 4.9 mmol/L (3.5-5.1) 08/03/21 11:05 Chloride 108 mmol/L (98-107) H 08/03/21 11:05 Carbon Dioxide 20 mmol/L (22-29) L 08/03/21 11:05 Anion Gap 14.9 (5-19) 08/03/21 11:05 BUN 61 mg/dL (8-23) H 08/03/21 11:05 Creatinine 1.4 mg/dL (0.7-1.2) H 08/03/21 11:05 GFR Calculation Not Reportable 08/03/21 11:05 Glucose 145 mg/dL (65-115) H 08/03/21 11:05 Calculated Osmolality 306 mOsm/kg (285-295) H 08/03/21 11:05 Lactic Acid 0.8 mmol/L (0.5-2.2) 08/03/21 11:05 Calcium 8.1 mg/dL (8.5-10.5) L 08/03/21 11:05 Total Bilirubin 0.4 mg/dL (0.15-1.2) 08/03/21 11:05 AST 15 U/L (0-40) 08/03/21 11:05 ALT 14 U/L (0-41) 08/03/21 11:05 Alkaline Phosphatase 74 IU/L (40-130) 08/03/21 11:05 Troponin T Baseline 71 ng/L (0-15) H 08/03/21 00:55 Troponin T 120 Minute 66.24 ng/L (0-15) H 08/03/21 02:00 Delta Troponin T -4.76 ABS# (0-10) L 08/03/21 02:00 Troponin T Hi Sens 6Hr 72.66 ng/L (0-15) H 08/03/21 06:45 Troponin T Hi Sens 6Hr Delta 1.66 ng/L (0-12) 08/03/21 06:45 NT-Pro-B Natriuret Pep 2858 pg/mL (0-450) H 08/03/21 00:55 Total Protein 6.3 g/dL (6.6-8.7) L 08/03/21 11:05 Albumin 2.9 g/dL (3.5-5.2) L 08/03/21 11:05 Globulin 3.4 g/dL (1.3-4.6) 08/03/21 11:05 Urine Color Yellow (Yellow) 08/03/21 08:28 Urine Appearance Clear (CLEAR) 08/03/21 08:28 Urine pH 5 (5-7) 08/03/21 08:28 Ur Specific Chapman 1.015 (1.005-1.030) 08/03/21 08:28 Urine Protein 1+ (Negative) H 08/03/21 08:28 Urine Glucose (UA) 4+ (Normal) H 08/03/21 08:28 Urine Ketones Negative (Negative) 08/03/21 08:28 Urine Blood 2+ (Negative) H 08/03/21 08:28 Urine Nitrate Negative (Negative) 08/03/21 08:28 Urine Bilirubin Neg (Negative) 08/03/21 08:28 Urine Urobilinogen Norm mg/dL (Negative) 08/03/21 08:28 Ur Leukocyte Esterase Negative (Negative) 08/03/21 08:28 Urine RBC 0-4 /hpf (0-2) H 08/03/21 08:28 Urine WBC 0-4 /hpf (0-5) H 08/03/21 08:28 Ur Squamous Epith Cells None /hpf (0-5) 08/03/21 08:28 Amorphous Sediment Not Reportable 08/03/21 08:28 Urine Bacteria 2+ /hpf (NONE) H 08/03/21 08:28 Urine Mucus N /hpf 08/03/21 08:28 Fluid Color Yellow 08/03/21 13:40 Fluid Appearance Clear 08/03/21 13:40 Fluid WBC 800 /uL 08/03/21 13:40 Fluid RBC 4.000 10^3/uL 08/03/21 13:40 Fluid Hematocrit 0.0 % 08/03/21 13:40 Fld Polynuclear WBCs # 0.067 08/03/21 13:40 Fld Polynuclear WBCs % 8.300 % 08/03/21 13:40 Fl Mononucl WBCs #(Auto) 0.733 08/03/21 13:40 Fl Mononuclear % Auto 91.700 % 08/03/21 13:40 Fluid Albumin 1.1 g/dL 08/03/21 13:40 Fluid Creatinine 1.57 (0.7-1.2) H 08/03/21 13:40 Pleural pH 7.00 (6.5-7.5) 08/03/21 13:40 Pleural Total Protein 2.0 g/dL 08/03/21 13:40 Pleural LDH 136 U/L 08/03/21 13:40 Pleural Glucose 161.0 mg/dL 08/03/21 13:40 Pleural Amylase 36.0 U/L 08/03/21 13:40 Pleural Triglycerides 9 mg/dL 08/03/21 13:40 Nasal Influ A H1 2008 PCR Not detected (NOT DETECT) 08/02/21 19:01 Salicylates < 0.3 mg/dL (3-10) L 08/03/21 11:05 Serum Ketones Negative (Negative) 08/03/21 11:05 Adenovirus (PCR) Not detected (NOT DETECT) 08/02/21 19:01 C. pneumoniae DNA (PCR) Not detected (NOT DETECT) 08/02/21 19:01 Coronavirus 229E (PCR) Not detected (NOT DETECT) 08/02/21 19:01 Human Metapneumovir PCR Not detected (NOT DETECT) 08/02/21 19:01 Influenza A (H1) PCR Not detected (NOT DETECT) 08/02/21 19:01 Influenza A (H3) PCR Not detected (NOT DETECT) 08/02/21 19:01 Influenza Type A (PCR) Not detected (NOT DETECT) 08/02/21 19:01 Influenza Type B (PCR) Not detected (NOT DETECT) 08/02/21 19:01 M. pneumoniae (PCR) Not detected (NOT DETECT) 08/02/21 19:01 Parainfluenza 1 (PCR) Not detected (NOT DETECT) 08/02/21 19:01 Parainfluenza 2 (PCR) Not detected (NOT DETECT) 08/02/21 19:01 Parainfluenza 3 (PCR) Not detected (NOT DETECT) 08/02/21 19:01 Parainfluenza 4 (PCR) Not detected (NOT DETECT) 08/02/21 19:01 RSV Type A (PCR) Not detected (NOT DETECT) 08/02/21 19:01 RSV Type B (PCR) Not detected (NOT DETECT) 08/02/21 19:01 Entero/Rhino (PCR) Not detected (NOT DETECT) 08/02/21 19:01 SARS-CoV-2 (PCR) Not detected (NOT DETECT) 08/02/21 19:01 Blood Type A Positive 08/02/21 19:20 Rho(D) Type Positive 08/02/21 19:20 Antibody Screen Negative 08/02/21 19:20 Discharge Plan Discharge Patient Disposition: Admitted As Inpatient Admit Provider: Jeremias Shafer Clinical Impression: Dehydration, Generalized weakness, Malaise, Diarrhea, Decreased appetite, Pleural effusion, Small cell carcinoma of lung, Metabolic acidosis Condition: Stable Sign Out Sign Out Data: Patient Sign Out occurred on 08/02/21 at 23:52. Patient's care was discussed, and care was transferred from to Danial Arceo MD. Patient Sign Out occurred on 08/03/21 at 06:48. Patient's care was discussed, and care was transferred from to Steven Pacheco DO. Coding Level of Care Code ED Metal Organ Pipe Maker for Chg Fwd Exam Comprehensive Documented by User: Danial Arceo MD 08/14/21 01:53 HPI - General Adult General: Chief complaint: ER Hold Stated complaint: Low blood Counts, Low bp Time Seen by Provider: 08/02/21 17:09 PFSH ED PFSH: Medical History Anxiety and depression BPH (benign prostatic hyperplasia) Chronic obstructive pulmonary disease Baseline 3 L oxygen CKD (chronic kidney disease) Hx of type 2 diabetes mellitus Ischemic cardiomyopathy Lung cancer New onset atrial fibrillation Obesity hypoventilation syndrome SJ (obstructive sleep apnea) Peripheral vascular disease Pulmonary hypertension Shortness of breath on exertion Small cell lung cancer, left upper lobe Surgical History (Updated 08/03/21 @ 14:45 by Get Orantes MD) History of tonsillectomy and adenoidectomy Hx of abdominal surgery Hx of appendectomy Hx of CABG Hx of foot surgery Hx of hammer toe correction Postsurgical aortocoronary bypass status Family History Mother CAD (coronary artery disease) Family/Other CAD (coronary artery disease) Dementia Diabetes Father CAD (coronary artery disease) Grandfather CAD (coronary artery disease) Grandmother CAD (coronary artery disease) Brother CAD (coronary artery disease) Sister CAD (coronary artery disease) Cancer Lung disease Sister Cancer Other Hypertension Denies family history of Clotting disorder Hyperlipidemia Psychiatric illness Chronic kidney disease (CKD) Suicide Anesthesia complication Bleeding disorder Stroke Social History Smoking and tobacco status: former smoker Quit status (tobacco): has quit using tobacco Year quit tobacco: 2020 Former quit date comment: 3ppd x 63years, started age 13 Alcohol intake: never Course Vital Signs: Vital signs: Vital Signs Temperature 97.9 F 08/06/21 18:00 Pulse Rate 70 08/06/21 23:52 Respiratory Rate 16 08/06/21 23:52 Blood Pressure 133/110 08/06/21 23:52 Pulse Oximetry 93 08/06/21 23:52 MDM - General Adult Medical Decision Making 76-year-old male with history of lung adenocarcinoma currently on chemotherapy presenting to the emergency room with decreased p.o. intake, generalized weakness, cough, concern for neutropenia. Patient currently is afebrile. Rest of blood work showed creatinine 1.8 similar to baseline. X-ray chest negative for any acute findings. UA negative for UTI. Patient received 500c fluid however still unable to tolerate p.o. given the fact the patient has acute failure to thrive, ongoing diarrhea, persistent cough, generalized weakness, patient will need further management inpatient. I have discussed case with Dr. Patricio at 8:55 PM who strongly recommended admission at this time. Disposition: admission Patient care handoff received from Dr. Vanegas pending disposition. I personally evaluated the patient and reperformed hensley portions of E/M. Reviewed work-up up to point of handoff and felt that additional testing was necessary given her presentation, history, and physical exam. CT findings with bilateral pleural effusions which are likely at least partially contributed patient symptoms. Patient is worsening oxygen requirement for baseline. Discussed with overnight hospitalist physician. Handed off to morning ED physician admission to the hospital. Danial Arceo MD Emergency Medicine Patient has been in the emergency room through the night. There is discussion of the hospitalist last night about admitting. Overnight his oxygen demands increased Dr. Arceo done a CT of his chest which showed a sizable pleural effusion. Additionally this morning when I evaluated the patient he was having difficulty breathing he was started on BiPAP and an ABG was done which showed a metabolic acidosis with no anion gap. Discussed with Dr. Orantes we will admit to ICU. Also discussed with Dr. Patricio. He feels the pleural effusion will likely resolve once his treatment is completed and recommends a single thoracentesis rather than placement of a drain. Lab Data : 08/06/21 06:40 08/06/21 06:[address] 08/02/21 23:54 IMPRESSION: 1. Left upper lobe atelectasis. 2. Large left pleural effusion 3. Small right pleural effusion 4. Mildly increased mediastinal adenopathy 5. No change right upper lobe mass 6. Increased interstitial densities in the right lung which could represent interstitial edema versus is lymphangitic metastasis. 7. Mild right hilar adenopathy Thoracentesis Ultrasound 08/03/21 09:59 IMPRESSION: Uncomplicated ultrasound-guided thoracentesis. Foot X-Ray 08/04/21 09:42 IMPRESSION: 1. Bony destruction of the distal end of the distal phalanx of great toe with soft tissue swelling suspicious for acute osteomyelitis. 2. Mild degenerative changes. Vascular calcifications about the foot and ankle. Heel spurs. Duplex Scan Lower Extremity Artery 08/04/21 11:52 IMPRESSION: 1. Right lower extremity biphasic blood flow seen in the iliac, common femoral, proximal and mid femoral arteries reflecting a degree of stenosis. 2. Right lower extremity monophasic blood flow seen in the distal femoral artery, popliteal artery and dorsalis pedis artery reflecting a degree of stenosis. 3. Left lower extremity monophasic blood flow extending from the common femoral artery through the dorsalis pedis artery reflecting a degree of stenosis. Chest X-Ray 08/06/21 13:55
[2021-08-02] MEDS: sodium chloride 0.9% 500 ML IV (18:20)
[2021-08-02 19:02] VITALS: BP 192/110; PULSE 89; RESP 18; O2SAT 93
[2021-08-02 19:59] LABS: Hematocrit 35.9 % (42.0-52.0); Hemoglobin 11.4 g/dL (11.7-16.6); Mean Corpuscular HGB Conc 31.8 g/dL (30.0-36.0); Mean Corpuscular Hemoglobin 29.9 pg (28.0-34.0); Mean Corpuscular Volume 94.2 fl (80-94); Mean Platelet Volume 10.3 fL (7.4-10.4); Platelet Count 61 10^3/cmm (130-400); Red Blood Count 3.81 10^6/uL (4.1-5.3); Red Cell Distribution Width 15.9 % (12.1-15.1); White Blood Count 1.1 10^3/uL (4.0-10.0)
[2021-08-02 20:12] LABS: Anion Gap 14.8 (5-19); Blood Urea Nitrogen 67 mg/dL (8-23); Calcium 8.4 mg/dL (8.5-10.5); Carbon Dioxide 21 mmol/L (22-29); Chloride 105 mmol/L (98-107); Glucose 162 mg/dL (65-115); Osmolality Calculated 305 mOsm/kg (285-295); Potassium 4.8 mmol/L (3.5-5.1); Sodium 136 mmol/L (136-145)
[2021-08-02 20:18] LABS: Slide Review Slide Review Perform
[2021-08-02 21:04] LABS: Adenovirus Not Detected (NOT DETECT); Chlamydia Pneumoniae Not Detected (NOT DETECT); Coronavirus 229E,HKU1,NL63,OC4 Not Detected (NOT DETECT); Human Metapneumovirus Not Detected (NOT DETECT); Human Rhinovirus/Enterovirus Not Detected (NOT DETECT); Influenza A Not Detected (NOT DETECT); Influenza A H1 Not Detected (NOT DETECT); Influenza A H1-2009 Not Detected (NOT DETECT); Influenza A H3 Not Detected (NOT DETECT); Influenza B Not Detected (NOT DETECT); Mycoplasma Pneumoniae Not Detected (NOT DETECT); Parainfluenza Virus Type 1 Not Detected (NOT DETECT); Parainfluenza Virus Type 2 Not Detected (NOT DETECT); Parainfluenza Virus Type 3 Not Detected (NOT DETECT); Parainfluenza Virus Type 4 Not Detected (NOT DETECT); Respiratory Syncytial Virus A Not Detected (NOT DETECT); Respiratory Syncytial Virus B Not Detected (NOT DETECT); SARS-COV-2 Not Detected (NOT DETECT)
[2021-08-02] MEDS: amlodipine 10 mg Tablet PO (21:10)
[2021-08-02 23:00] VITALS: BP 169/89; PULSE 89; RESP 22; TEMP 37.5
--- NOTE | 2021-08-02 23:54 | CTR_ITS ---
PROCEDURE INFORMATION: Exam: CT Chest Without Contrast; Diagnostic Exam date and time: 08/03/2021 12:15 AM Age: 76 years old Clinical indication: Shortness of breath; Prior surgery; Surgery type: Cabg; Patient HX: Severe SOB. History of small cell lung cancer. ; Additional info: SOB, HX cancer TECHNIQUE: Imaging protocol: Diagnostic computed tomography of the chest without contrast. Radiation optimization: All CT scans at this facility use at least one of these dose optimization techniques: automated exposure control; mA and/or kV adjustment per patient size (includes targeted exams where dose is matched to clinical indication); or iterative reconstruction. COMPARISON: CT chest wo con [id number] 06/13/2021 1:10 PM RADIATION DOSE METRICS: Total DLP (mGy-cm): 840.65 FINDINGS: Lungs: There are some calcified granulomas in the left lung. There are calcified hilar lymph nodes in keeping with old granulomatous disease. There is markedly increased atelectasis of the left upper lobe sparing only the apical segment. Lingula is normally aerated. The left hilar mass is obscured by the atelectasis not seen on this noncontrast examination. There are calcified granulomas in the right lung. Increased interstitial markings in the right lung likely represent some mild interstitial edema but lymphangitic metastasis not entirely excluded. There is a spiculated 1.7 cm sized right upper lobe mass such as on image number 25 of series 300 not significantly changed worrisome for malignancy. 5 mm peripheral nodule on image number 27 also unchanged. Pleural spaces: There is a moderate left pleural effusion and a small right pleural effusion. Heart: There is mild cardiomegaly. Lymph nodes: There is left superior mediastinal lymph node measuring approximately 16 x 26 mm, smaller than on 06/13/2021 when it measured 23 x 29 mm. Left hilar adenopathy is not well evaluated on this examination due to the atelectasis. There is subcarinal adenopathy measuring up to 8 x 21 mm, previously 8 x 18 mm. There is mild right hilar adenopathy increased from previous. Vasculature: Unremarkable. No aortic aneurysm. Adrenal glands: Bilateral adrenal enlargement is stable. Bones/joints: Sternotomy wires and mediastinal surgical clips are present, consistent with previous coronary arterial bypass grafting. There are degenerative changes in the thoracic spine. No fracture or destructive lesion is identified. Soft tissues: Unremarkable. CT/CT chest wo con [id number] IMPRESSION: 1. Left upper lobe atelectasis. 2. Large left pleural effusion 3. Small right pleural effusion 4. Mildly increased mediastinal adenopathy 5. No change right upper lobe mass 6. Increased interstitial densities in the right lung which could represent interstitial edema versus is lymphangitic metastasis. 7. Mild right hilar adenopathy
--- NOTE | 2021-08-02 23:55 | ECG_ITS ---
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 Measurements Intervals [place] Rate: 68 P: CT: QRS: 106 QRSD: 121 T: 13 QT: 418 QTc: 447 Interpretive Statements ATRIAL FIBRILLATION RIGHT AXIS DEVIATION [QRS AXIS > 100] INFERIOR MYOCARDIAL INFARCTION , PROBABLY OLD [40+ ms Q WAVE AND/OR ST/T ABNORMALITY IN II/aVF] Compared to ECG 05/23/2021 06:27:58 No significant changes Electronically Signed On 08-03-2021 15:18:32 CDT by Valerio Das M.D. [email or web address].[place] [email or web address]/store/OM/[id number]
[2021-08-03] VITALS (55 sets, daily range): BP systolic 105–186; BP diastolic 54–106; PULSE 45–90; RESP 10–29; TEMP 36.6–37.2; O2SAT 86–98
--- NOTE | 2021-08-03 01:07 | PM.CONSULT ---
Providers/Reason For Consult Consulting Physician/Specialty*: Pratik Syed Reason for Consult*: Generalized weakness, poor oral intake, possible need for inpatient admission. Attending Physician: Jeremias Shafer MD Primary Care Provider: Contreras Hanson DO History of Present Illness History of Present Illness 76-year-old gentleman with a history of COPD, on 3 L home oxygen CHF, coronary artery disease s/p CABG, Diabetes, Ca lung left upper lobe currently on chemotherapy last chemotherapy done 6 days back Was sent in by his oncologist for concerns of lab abnormality , generalized weakness, and? decreased p.o. intake. Patient was seen and examined in the ER, he is complaining of generalized fatigue and weakness Not different from his baseline, has not complained any worsening shortness of breath, currently denies any fever, chest pain, nausea vomiting headache. His vitals and labs have been reviewed: Patient is hemodynamically stable: Patient received IV fluids in the ER. Medications/Allergies Home Medications Medication Instructions Recorded Confirmed Last Taken Type cholecalciferol (vitamin D3) 25 25 mcg PO DAILY 01/25/21 08/02/21 08/01/21 History mcg (1,000 unit) capsule cilostazol 100 mg tablet 50 mg PO BID tab 01/25/21 08/02/21 08/01/21 History insulin glargine 100 unit/mL 3 unit SUBCUT DAILY ml 01/25/21 08/02/21 08/01/21 History subcutaneous solution (Lantus U-100 Insulin) lisinopril 40 mg tablet 20 mg PO BID tab 01/25/21 08/02/21 08/01/21 History nebulizers #1 ea 01/25/21 08/02/21 Unknown Rx omega-3 fatty acids 1,000 mg 1,000 mg PO BID 01/25/21 08/02/21 08/01/21 History capsule (Fish Oil Concentrate) rosuvastatin 40 mg tablet 20 mg PO DAILY tab 01/25/21 08/02/21 08/01/21 History sertraline 100 mg tablet 100 mg PO DAILY 01/25/21 08/02/21 08/01/21 History carvedilol 12.5 mg tablet 6.25 mg PO BID tab 02/01/21 08/02/21 08/01/21 History multivitamin 1 tab PO DAILY 02/01/21 08/02/21 08/01/21 History tamsulosin 0.4 mg capsule 0.4 mg PO DAILY 05/19/21 08/02/21 08/01/21 History topiramate 200 mg tablet 200 mg PO DAILY tab 05/23/21 08/02/21 08/01/21 History furosemide 20 mg tablet 20 mg PO DAILY 06/29/21 08/02/21 08/01/21 History allopurinol 100 mg tablet 100 mg PO TID #40 tab 07/13/21 08/02/21 08/01/21 Rx hydrocodone 5 mg-acetaminophen 325 1 tab PO Q6H PRN #10 tab 07/19/21 08/02/21 Unknown Rx mg tablet lorazepam 1 mg tablet 0.5 - 1 mg PO Q6H PRN #30 tab 07/25/21 08/02/21 Unknown Rx olanzapine 5 mg tablet 5 mg PO QPM #30 tab 07/25/21 08/02/21 08/01/21 Rx prochlorperazine maleate 10 mg 10 mg PO Q4H PRN #30 tab 07/25/21 08/02/21 Unknown Rx tablet (Compazine) albuterol sulfate 90 mcg/actuation 2 puff INHALATION QID PRN 08/02/21 08/02/21 Unknown History aerosol inhaler empagliflozin 10 mg tablet 10 mg PO DAILY 08/02/21 08/02/21 08/01/21 History (Jardiance) Allergies Allergy/AdvReac Type Severity Reaction Status Date / Time Iodinated Contrast Media Allergy ADR-Itching Verified 08/02/21 11:41 PFSH Acute PFSH: Medical History (Updated 08/03/21 @ 14:53 by Get Orantes MD) Anxiety and depression BPH (benign prostatic hyperplasia) Chronic obstructive pulmonary disease Baseline 3 L oxygen CKD (chronic kidney disease) Hx of type 2 diabetes mellitus Ischemic cardiomyopathy Lung cancer New onset atrial fibrillation Obesity hypoventilation syndrome SJ (obstructive sleep apnea) Peripheral vascular disease Pulmonary hypertension Shortness of breath on exertion Small cell lung cancer, left upper lobe Surgical History (Updated 08/03/21 @ 14:45 by Get Orantes MD) History of tonsillectomy and adenoidectomy Hx of abdominal surgery Hx of appendectomy Hx of CABG Hx of foot surgery Hx of hammer toe correction Postsurgical aortocoronary bypass status Family History Mother CAD (coronary artery disease) Family/Other CAD (coronary artery disease) Dementia Diabetes Father CAD (coronary artery disease) Grandfather CAD (coronary artery disease) Grandmother CAD (coronary artery disease) Brother CAD (coronary artery disease) Sister CAD (coronary artery disease) Cancer Lung disease Sister Cancer Other Hypertension Denies family history of Clotting disorder Hyperlipidemia Psychiatric illness Chronic kidney disease (CKD) Suicide Anesthesia complication Bleeding disorder Stroke Social History Smoking and tobacco status: former smoker Quit status (tobacco): has quit using tobacco Year quit tobacco: 2020 Former quit date comment: 3ppd x 62years, started age 13 Alcohol intake: never Vitals/I&O/Wt Last Vital Signs Temp 99.5 F 08/02/21 23:00 Pulse 67 08/03/21 01:00 Resp 24 H 08/03/21 01:00 BP 163/91 08/03/21 01:00 Pulse Ox 90 08/03/21 01:00 08/02/21 08/02/21 08/03/21 14:59 22:59 06:59 Intake Total 500 / 500 Balance 500 / 500 Weight last 48 hrs Weight 131.995 kg Weight 131.995 kg Weight 131.995 kg Physical Exam Const: COMMON NORMALS: patient oriented x3 HENMT: COMMON NORMALS: normocephalic and atraumatic HEAD & SCALP: normocephalic and atraumatic Chest: CHEST: Yes Symmetrical chest wall rise Resp: COMMON NORMALS: normal respiratory effort, No retractions, No use of accessory muscles and clear to auscultation bilaterally EFFORT & INSPECTION: Yes symmetric chest movement AUSCULTATION: clear to auscultation bilaterally Cardio: COMMON NORMALS: regular rate, regular rhythm, S1 normal heart sound present, S2 normal heart sound present, No gallops present (Cardio), No murmurs present (Cardio), No rub (Cardio) and Peripheral pulses 2+ throughout RATE: regular rate RHYTHM: regular rhythm HEART SOUNDS: S1 normal heart sound present and S2 normal heart sound present PERIPHERAL PULSES: Peripheral pulses 2+ throughout GI: COMMON NORMALS: Normal to inspection, nondistended, normoactive bowel sounds present, Soft to palpation, non-tender, No hepatosplenomegaly present and no masses AUSCULTATION: Yes normoactive bowel sounds PALPATION: Yes Soft to palpation and Yes No hepatosplenomegaly present RECTAL EXAM: Yes deferred Extremity: COMMON NORMALS: no clubbing, cyanosis or edema and no pedal edema Neuro: COMMON NORMALS: patient oriented x3 Data : 08/04/21 04:45 08/04/21 04:45 A&P Assessment and plan (1) Generalized weakness: Status: Acute (2) Malaise: Status: Acute (3) Decreased appetite: Status: Acute (4) Small cell carcinoma: Status: Acute (5) Benign essential HTN: Status: Acute (6) CAD (coronary artery disease): Status: Acute Qualifiers: Associated angina: unspecified whether angina present Coronary Disease-Associated Artery/Lesion type: [place] artery [place] vs. transplanted heart: [place] heart Qualified Code(s): I25.10 - Atherosclerotic heart disease of [place] coronary artery without angina pectoris (7) CHF (congestive heart failure): Status: Acute Qualifiers: Heart failure chronicity: acute on chronic Heart failure type: systolic Qualified Code(s): I50.23 - Acute on chronic systolic (congestive) heart failure (8) COPD (chronic obstructive pulmonary disease): Status: Acute (9) Diabetes: Status: Acute (10) Pancytopenia: Status: Acute (11) CKD (chronic kidney disease): Status: Acute Plan 76-year-old gentleman with a history of COPD, on 3-4 L home oxygen CHF, coronary artery disease s/p CABG, sleep apnea, Diabetes, Ca lung left upper lobe currently on chemotherapy last chemotherapy done 6 days back Was sent in by his oncologist for concerns of lab abnormality , generalized weakness, and? decreased p.o. intake. Patient is currently hemodynamically stable, generalized weakness and fatigue is likely secondary to his chronic comorbid conditions, as well as currently undergoing chemotherapy, patient has received IV fluids in the ER, patient can be encouraged to continue with Good oral intake. Currently the pancytopenia secondary to chemotherapy effect. No infection currently suspect. There is no immediate need for hospital admission. Patient can continue to follow with his primary care physician as well as oncology as an outpatient. CT chest was ordered after I had received complete signout from previous ER physician.Patient can follow pulmonary medicine as an outpatient for left pleural effusion management, or I.R can be consulted in the morning for pleural effusion drain. Monitor repeat CBC, BMP, in a week. In the event of any change from the current status, he can return to the ER. Coding Level of Care Code Acute Hop Grower for Chg Fwd Exam Detailed Diagnoses Generalized weakness R53.1 Malaise R53.81 Decreased appetite R63.0 Small cell carcinoma C80.1 Benign essential HTN I10 CAD (coronary artery disease) I25.10 Associated angina: unspecified whether angina present Coronary Disease-Associated Artery/Lesion type: [place] artery [place] vs. transplanted heart: [place] heart CHF (congestive heart failure) I50.23 Heart failure chronicity: acute on chronic Heart failure type: systolic COPD (chronic obstructive pulmonary disease) J44.9 Diabetes E11.9 Pancytopenia D61.818 CKD (chronic kidney disease) N18.9
[2021-08-03 01:35] LABS: Troponin(5th) Baseline 71 ng/L (0-15)
[2021-08-03 01:44] LABS: NT Pro B Type Natriuretic Pept 2858 pg/mL (0-450)
--- NOTE | 2021-08-03 01:55 | ECG_ITS ---
[facility] Test Date: 2021-08-03 Pat Name: Tobias Song Department: Room: EDIP Gender: Male Pit Clerk: : 1945 Requested By: Danial Arceo Order Number: [id number] Beverley MD: Valerio Das M.D. Measurements Intervals [place] Rate: 68 P: [place]: QRS: 109 QRSD: 123 T: 68 QT: 403 QTc: 432 Interpretive Statements ATRIAL FIBRILLATION RIGHT AXIS DEVIATION [QRS AXIS > 100] INFERIOR MYOCARDIAL INFARCTION , PROBABLY OLD [40+ ms Q WAVE AND/OR ST/T ABNORMALITY IN II/aVF] Compared to ECG 08/03/2021 00:28:51 No significant changes Electronically Signed On 08-03-2021 15:24:13 CDT by Valerio Das M.D. [email or web address]/store/[id number]
[2021-08-03 03:55] LABS: Troponin 5 2HR 66.24 ng/L (0-15)
[2021-08-03 04:01] LABS: Troponin 5 2HR Delta -4.76 ABS# (0-10)
--- NOTE | 2021-08-03 05:55 | ECG_ITS ---
[facility] Test Date: 2021-08-03 Pat Name: Tobias Song Department: Room: EDIP Gender: Male Check Pilot: : 1945 Requested By: Danial Arceo Order Number: [id number] Beverley MD: Valerio Das M.D. Measurements Intervals [place] Rate: 70 P: [place]: QRS: 78 QRSD: 124 T: 56 QT: 391 QTc: 424 Interpretive Statements ATRIAL FIBRILLATION INFERIOR MYOCARDIAL INFARCTION , PROBABLY OLD [40+ ms Q WAVE AND/OR ST/T ABNORMALITY IN II/aVF] Compared to ECG 08/03/2021 02:21:40 Right-axis deviation no longer present Myocardial infarct finding still present Electronically Signed On 08-03-2021 15:24:24 CDT by Valerio Das M.D. [email or web address]/store/[id number]
[2021-08-03 07:14] LABS: Troponin 5 6HR 72.66 ng/L (0-15)
--- NOTE | 2021-08-03 07:17 | PC.NURSE ---
EKG done at 0710 and shown to ER doctor
[2021-08-03 07:20] LABS: Troponin 5 6HR Delta 1.66 ng/L (0-12)
[2021-08-03 07:28] LABS: ABG PCO2 46.4 mmHg (35-45); ABG PH Result 7.26 (7.35-7.45); Alveolar-Arterial Oxygen Gradi 24.2 mmHg (5-10); Arterial Blood Gas Hematocrit 36.2 % (42-52); Base Excess ABG -6.5 mmol/L (-2.0-2.0); Blood Gas Operator Identificat AMH; Blood Gas Sample Site Brachial, left; Blood Gas Sample Type Arterial; HCO3 ABG 20.5 mmol/L (22-26); HGB O2 Sat 90.7 % (95-100); Ionized Calcium Level - ABG 1.2 mmol/L (1.1-1.4); Methemoglobin 0.7 % (0.4-1.5); Oxygen Device NC; Oxygen Saturation ABG 93.1; PO2 ABG 71.3 mmHg (80.0-100.0); Potassium Level - ABG 4.8 mmol/L (3.5-5.0); Total Hemoglobin 11.8 g/dL (14-18)
--- NOTE | 2021-08-03 07:29 | PC.NURSE ---
Patient in bed, awake, denies any needs at this time, family at bedside. vitals stable .
--- NOTE | 2021-08-03 07:41 | PC.NURSE ---
Patient placed on high flow oxygen, respiratory stated when he goes to the unit that the canister will need to go with him.
--- NOTE | 2021-08-03 07:52 | PC.NURSE ---
Called respiratory for bipap.
[2021-08-03 08:51] LABS: Urine Appearance Clear (CLEAR); Urine Color Yellow (Yellow)
[2021-08-03 08:52] LABS: Glucose Urine UA 4+ (Normal); Ketones Urine Negative (Negative); Protein Urine 1+ (Negative); Specific Gravity, Urine 1.015 (1.005-1.030); pH Urine 5 (5-7)
[2021-08-03 08:53] LABS: Add Urine Microscopic? YES; Bilirubin Urine Neg (Negative); Blood Urine 2+ (Negative); Leukocyte Esterase Urine Negative (Negative); Nitrate Urine Negative (Negative); Urobilinogen Urine Norm (Negative)
[2021-08-03 08:55] LABS: Bacteria Urine 2+ /hpf; RBC Urine 0-4 /hpf (0-2); WBC Urine 0-4 /hpf (0-5)
[2021-08-03 08:56] LABS: Add Urine Culture? Yes; Mucus Urine N /hpf
--- NOTE | 2021-08-03 09:30 | PC.NURSE ---
Addendum entered by Ady Cheema RN 08/03/21 09:31: Patient's states that there will be nothing more done until Dr. Patricio speaks with her. Patient and do not want anymore pokes until then.Patient resting at this time. no distress noted. Notified Dr. Pacheco. Original Note: Patient's states that there will be nothing more done until Dr. Patricio speaks with her. Patient and do not want anymore pokes until then.Patient resting at this time. no distress noted.
--- NOTE | 2021-08-03 09:59 | US_ITS ---
WS: [id number] ULTRASOUND-GUIDED THORACENTESIS CLINICAL INFORMATION: left pleural effusion COMPARISON: None. PROCEDURE: Informed consent: The risks, benefits, and alternatives of the procedure were discussed with the rebekah ent. Verbal and written consent was obtained. Timeout: A timeout was performed to confirm the correct patient, procedure, and site. Site: LEFT chest Preparation: A suitable skin site was identified. The patient was prepped and draped in usual sterile fashion. Lidocaine 1% was used for local anesthesia. Catheter: 4 [place] One-Step catheter. Fluid Volume: 800 ml Color: Bloody 50 cc Sent to the laboratory for analysis. Complications: None. / thoracentesis [id number] IMPRESSION: Uncomplicated ultrasound-guided thoracentesis.
--- NOTE | 2021-08-03 10:04 | PM.HP ---
Providers/Chief Complaint Admitting Physician: Jeremias Shafer MD Primary Care Provider: Contreras Hanson DO Chief Complaint: Low blood Counts, Low bp History of Present Illness Tobias Song is a 76 year old male who presented to the emergency department last night, with fatigue and some increased shortness of breath. He had been seen by his oncologist earlier and noted that his counts were low, and he had some hypoxia in the office. He had not had any fever at home in the last several days but may be had some chills or fever right after chemotherapy on 25 July. indicates he did receive Neupogen. Patient reports he is short of breath. He denies any chest pain. No nausea or vomiting. Occasionally he will have some loose stool but has not been constipated. I consulted been done earlier this morning, and after the point the patient worsened, requiring BiPAP and had evidence of respiratory acidosis. He has history of non-small cell lung cancer, for which she is undergoing chemotherapy. He last received carboplatinum, etoposide on July 25. Review of Systems General: Reports: 10 or more systems reviewed and unremarkable except in HPI and below Const: Denies: fever(s) or chills Eyes: Denies: change in vision ENMT: Denies: throat pain Card: Denies: chest pain Resp: Reports: dyspnea; Denies: productive cough or non-productive cough GI: Reports: hematochezia (Occasional hemorrhoidal bleeding); Denies: abdominal pain, nausea or melena : Reports: difficulty urinating Musc: Denies: neck pain Skin/Breast: Denies: rash Neuro: Denies: headache(s) Psych: Denies: anxiety or depression Endo: Denies: polyuria Chucky/Lymph: Denies: easy bruising All/Imm: Denies: urticaria Medications/Allergies Home Medications Medication Instructions Recorded Confirmed Last Taken Type cholecalciferol (vitamin D3) 25 25 mcg PO DAILY 01/25/21 08/02/21 08/01/21 History mcg (1,000 unit) capsule cilostazol 100 mg tablet 50 mg PO BID tab 01/25/21 08/02/21 08/01/21 History insulin glargine 100 unit/mL 3 unit SUBCUT DAILY ml 01/25/21 08/02/21 08/01/21 History subcutaneous solution (Lantus U-100 Insulin) lisinopril 40 mg tablet 20 mg PO BID tab 01/25/21 08/02/21 08/01/21 History nebulizers #1 ea 01/25/21 08/02/21 Unknown Rx omega-3 fatty acids 1,000 mg 1,000 mg PO BID 01/25/21 08/02/21 08/01/21 History capsule (Fish Oil Concentrate) rosuvastatin 40 mg tablet 20 mg PO DAILY tab 01/25/21 08/02/21 08/01/21 History sertraline 100 mg tablet 100 mg PO DAILY 01/25/21 08/02/21 08/01/21 History carvedilol 12.5 mg tablet 6.25 mg PO BID tab 02/01/21 08/02/21 08/01/21 History multivitamin 1 tab PO DAILY 02/01/21 08/02/21 08/01/21 History tamsulosin 0.4 mg capsule 0.4 mg PO DAILY 05/19/21 08/02/21 08/01/21 History topiramate 200 mg tablet 200 mg PO DAILY tab 05/23/21 08/02/21 08/01/21 History furosemide 20 mg tablet 20 mg PO DAILY 06/29/21 08/02/21 08/01/21 History allopurinol 100 mg tablet 100 mg PO TID #40 tab 07/13/21 08/02/21 08/01/21 Rx hydrocodone 5 mg-acetaminophen 325 1 tab PO Q6H PRN #10 tab 07/19/21 08/02/21 Unknown Rx mg tablet lorazepam 1 mg tablet 0.5 - 1 mg PO Q6H PRN #30 tab 07/25/21 08/02/21 Unknown Rx olanzapine 5 mg tablet 5 mg PO QPM #30 tab 07/25/21 08/02/21 08/01/21 Rx prochlorperazine maleate 10 mg 10 mg PO Q4H PRN #30 tab 07/25/21 08/02/21 Unknown Rx tablet (Compazine) albuterol sulfate 90 mcg/actuation 2 puff INHALATION QID PRN 08/02/21 08/02/21 Unknown History aerosol inhaler empagliflozin 10 mg tablet 10 mg PO DAILY 08/02/21 08/02/21 08/01/21 History (Jardiance) Allergies Allergy/AdvReac Type Severity Reaction Status Date / Time Iodinated Contrast Media Allergy ADR-Itching Verified 08/02/21 11:41 PFSH Acute PFSH: Medical History (Updated 08/03/21 @ 14:53 by Get Orantes MD) Anxiety and depression BPH (benign prostatic hyperplasia) Chronic obstructive pulmonary disease Baseline 3 L oxygen CKD (chronic kidney disease) Hx of type 2 diabetes mellitus Ischemic cardiomyopathy Lung cancer New onset atrial fibrillation Obesity hypoventilation syndrome SJ (obstructive sleep apnea) Peripheral vascular disease Pulmonary hypertension Shortness of breath on exertion Small cell lung cancer, left upper lobe Surgical History (Updated 08/03/21 @ 14:45 by Get Orantes MD) History of tonsillectomy and adenoidectomy Hx of abdominal surgery Hx of appendectomy Hx of CABG Hx of foot surgery Hx of hammer toe correction Postsurgical aortocoronary bypass status Family History Mother CAD (coronary artery disease) Family/Other CAD (coronary artery disease) Dementia Diabetes Father CAD (coronary artery disease) Grandfather CAD (coronary artery disease) Grandmother CAD (coronary artery disease) Brother CAD (coronary artery disease) Sister CAD (coronary artery disease) Cancer Lung disease Sister Cancer Other Hypertension Denies family history of Clotting disorder Hyperlipidemia Psychiatric illness Chronic kidney disease (CKD) Suicide Anesthesia complication Bleeding disorder Stroke Social History Smoking and tobacco status: former smoker Quit status (tobacco): has quit using tobacco Year quit tobacco: 2020 Former quit date comment: 3ppd x 62years, started age 13 Alcohol intake: never Vitals/I&O/Wt Last Vital Signs Temp 97.9 F 08/03/21 06:30 Pulse 59 L 08/03/21 09:30 Resp 23 H 08/03/21 09:30 BP 154/79 08/03/21 09:30 Pulse Ox 98 08/03/21 09:30 08/02/21 08/03/21 08/03/21 22:59 06:59 14:59 Intake Total 500 / 500 Balance 500 / 500 Weight last 48 hrs Weight 131.995 kg Weight 131.995 kg Weight 131.995 kg Physical Exam Narrative: General exam is a white male, on BiPAP, who is somewhat sleepy. He will awaken to have a brief conversation. HEENT: Pupils equally round. Oropharynx not examined secondary to BiPAP. Head is atraumatic and normocephalic. Neck is supple no lymphadenopathy or thyromegaly Cardiovascular irregular, irregular. No murmur. Lungs diminished breath sounds bilaterally, especially on the left. No wheezes. Abdomen is soft with positive bowel sounds. Hernia noted, reducible exam is deferred Extremities trace edema bilaterally. A few excoriations left side and bruising Skin see findings above Neuro no focal deficits Data : 08/03/21 11:05 08/03/21 11:05 Other Labs: EKG demonstrates atrial fibrillation, normal axis, right axis deviation Previous echocardiogram May 2018 demonstrated preserved EF, trace mitral regurgitation Chest x-ray demonstrates left-sided infiltrate, effusion, right-sided port, evidence of bypass surgery in the past COVID is negative CT chest demonstrates left upper lobe atelectasis, large left effusion, small right effusion, mediastinal adenopathy, right upper lobe mass, interstitial edema in the lungs bilaterally, right hilar adenopathy ABG demonstrated pH 7.26, PCO2 46, PO2 of 71 LFTs normal Calcium 8.1 Troponin baseline 71 with repeat of 66 BNP 2858 Albumin 2.9 Urinalysis with 0-4 reds, 0-4 whites Salicylate level less than 0.3, serum ketones negative A&P Assessment and plan (1) Acute respiratory failure: Patient with acute respiratory failure. He is requiring BiPAP. He had evidence of hypercarbic hypoxic failure with increased work of breathing demonstrated by retractions when he was initially put on BiPAP as well as elevated respiratory rate. Status: Acute (2) Pleural effusion, left: Patient with left pleural effusion, known lung cancer, non-small cell lung cancer I discussed with him and his the risks and benefits of thoracentesis. Radiology will perform today. Standard studies will be done including culture. Status: Acute (3) Pneumonia: Patient with evidence of neutropenia, although ANC is not less than 500 currently. Reverse isolation Sputum culture, MRSA PCR, blood culture IV antibiotics consisting of cefepime and vancomycin Status: Acute (4) COPD (chronic obstructive pulmonary disease): Pulmonary toilet, including DuoNeb and budesonide At this point I do not think steroids are indicated, no evidence of significant COPD exacerbation. No wheezing present currently. We will continue to monitor. Status: Acute (5) Small cell carcinoma of lung: This may be in fact non-small cell lung cancer according to last oncology notes. Last chemotherapy carboplatinum and etoposide on July 25 Status: Acute (6) Diabetes: Sliding scale insulin Status: Acute (7) CAD (coronary artery disease): No evidence of acute coronary ischemia. Continue home medications including carvedilol and statin Status: Acute Qualifiers: Coronary Disease-Associated Artery/Lesion type: [place] artery [place] vs. transplanted heart: [place] heart Associated angina: unspecified whether angina present Qualified Code(s): I25.10 - Atherosclerotic heart disease of [place] coronary artery without angina pectoris (8) Pancytopenia: Patient with significant pancytopenia. This is likely secondary to recent chemotherapy. Continue to monitor closely. Repeat levels tomorrow. Status: Acute Plan Multiple other medical problems as outlined in past medical history Full code SCDs for DVT prophylaxis. Anticoagulation contraindicated secondary to thrombocytopenia. Attestations Medical Necessity Statement*: Will need greater than 2 midnight stay for evaluation and treatment of left pleural effusion, pancytopenia, and provide treatment of pneumonia with IV antibiotics. Coding Level of Care Code Acute Marinator for [facility] Diagnoses Acute respiratory failure J96.00 Pleural effusion, left J90 Pneumonia J18.9 COPD (chronic obstructive pulmonary disease) J44.9 Small cell carcinoma of lung C34.90 Diabetes E11.9 CAD (coronary artery disease) I25.10 Coronary Disease-Associated Artery/Lesion type: [place] artery [place] vs. transplanted heart: [place] heart Associated angina: unspecified whether angina present Pancytopenia D61.818
[2021-08-03 11:30] LABS: Hematocrit 34.5 % (42.0-52.0); Lymphocytes # 0.9 10^3/uL (0.8-4.8); Mean Corpuscular HGB Conc 31.9 g/dL (30.0-36.0); Mean Corpuscular Hemoglobin 30.1 pg (28.0-34.0); Mean Corpuscular Volume 94.3 fl (80-94); Mean Platelet Volume 10.1 fL (7.4-10.4); Nucleated Red Blood Cells % 0 %; Platelet Count 45 10^3/cmm (130-400); Red Blood Count 3.66 10^6/uL (4.1-5.3); Red Cell Distribution Width 15.9 % (12.1-15.1)
[2021-08-03 11:46] LABS: Ketone (Acetest) Serum Negative (Negative)
[2021-08-03 11:52] LABS: Alanine Aminotransferase 14 U/L (0-41); Albumin Level 2.9 g/dL (3.5-5.2); Alkaline Phosphatase 74 IU/L (40-130); Anion Gap 14.9 (5-19); Aspartate Amino Transferase 15 U/L (0-40); Blood Urea Nitrogen 61 mg/dL (8-23); Calcium 8.1 mg/dL (8.5-10.5); Carbon Dioxide 20 mmol/L (22-29); Chloride 108 mmol/L (98-107); Globulin 3.4 g/dL (1.3-4.6); Glucose 145 mg/dL (65-115); Lactic Sepsis W/Reflex 0.8 mmol/L (0.5-2.2); Osmolality Calculated 306 mOsm/kg (285-295); Potassium 4.9 mmol/L (3.5-5.1); Sodium 138 mmol/L (136-145); Total Bilirubin 0.4 mg/dL (0.15-1.2); Total Protein 6.3 g/dL (6.6-8.7)
[2021-08-03 11:54] LABS: Salicylate < 0.3 mg/dL (3-10)
[2021-08-03 12:05] LABS: Slide Review Slide Review Perform
[2021-08-03 12:18] LABS: INR 1.08 (0.8-1.2)
[2021-08-03 12:19] LABS: Partial Thromboplastin Time 35.3 SECONDS (23.9-36.7)
--- NOTE | 2021-08-03 13:41 | XR_ITS ---
WS: [id number] CHEST XRAY TECHNIQUE: Portable chest. CLINICAL INFORMATION: POST THORACENTESIS COMPARISON: August 02, 2021 FINDINGS: RIGHT Port-A-Cath with tip in SVC. Heart: Cardiomegaly. Sternotomy. Mediastinal clips. Lungs: Improved/resolved LEFT pleural effusion post thoracentesis. Persistent LEFT upper lobe atelect asis. Tiny RIGHT pleural effusion. Bones: Normal visualized bony structures. XR/XR chest 1V portable [id number] IMPRESSION: Improved/resolved LEFT pleural effusion post thoracentesis. No pneumothorax. No other changes from previous.
[2021-08-03 14:36] LABS: Apprearance, Body Fluid CLEAR; Color, Body Fluid YELLOW
[2021-08-03 14:42] LABS: Body Fluid Polynuclear #Cells 0.067; Body Fluid WBC 800 /uL; Monocytes # Body Fluid 0.733
[2021-08-03 15:19] LABS: Cyto Order Verification No Order
[2021-08-03 15:41] LABS: PATH Referral YES
[2021-08-03 15:43] LABS: Albumin Body Fluid 1.1 g/dL; Creatinine Body Fluid 1.57 (0.7-1.2); LDH Pleural Fluid 136 U/L; Triglycerides, Pleural Fluid 9 mg/dL
[2021-08-03] MEDS: sodium chloride 0.9% 1,000 ML 50 ML IV (18:15)
[2021-08-03] MEDS: allopurinol 100 mg Tablet PO ×2 (18:15→22:25)
[2021-08-03] MEDS: insulin lispro 100 unit/1 mL SUBCUT (18:15)
[2021-08-03] MEDS: carvedilol 6.25 mg Tablet PO (18:15)
[2021-08-03 18:27] LABS: Glucose Point of Care 187 mg/dL (70-110)
[2021-08-03] MEDS: acetaminophen 325 mg Tablet 650 MG PO (19:57)
[2021-08-03] MEDS: cefepime 2,000 MG in sodium chloride 0.9% (plus) 50 ML 100 MG IV (19:57)
[2021-08-03] MEDS: budesonide 0.5 mg/2 mL Neb INHALATION (21:40)
[2021-08-03] MEDS: ipratropium-albuterol 3 mL Neb INHALATION (21:40)
[2021-08-03 22:25] LABS: Glucose Point of Care 123 mg/dL (70-110)
[2021-08-04] VITALS (159 sets, daily range): BP systolic 75–168; BP diastolic 32–110; PULSE 50–98; RESP 9–39; TEMP 36.6–36.7; O2SAT 80–97
[2021-08-04] MEDS: ipratropium-albuterol 3 mL Neb INHALATION ×6 (00:12→19:51)
[2021-08-04] MEDS: HYDROcodone-acetaminophen 5-325 mg Tablet 1 TAB PO ×2 (01:31→08:30)
[2021-08-04] MEDS: acetaminophen 325 mg Tablet 650 MG PO (05:46)
[2021-08-04 06:17] LABS: Hematocrit 33.1 % (42.0-52.0); Hemoglobin 9.8 g/dL (11.7-16.6); Lymphocytes # 0.7 10^3/uL (0.8-4.8); Lymphocytes % 93.6 %; Mean Corpuscular HGB Conc 29.6 g/dL (30.0-36.0); Mean Corpuscular Hemoglobin 29.7 pg (28.0-34.0); Mean Corpuscular Volume 100.3 fl (80-94); Mean Platelet Volume 10.9 fL (7.4-10.4); Monocytes % 3.8 %; Neutrophils % 2.6 %; Nucleated Red Blood Cells % 0 %; Platelet Count 30 10^3/cmm (130-400); Red Cell Distribution Width 15.9 % (12.1-15.1)
[2021-08-04 06:40] LABS: Alanine Aminotransferase 11 U/L (0-41); Albumin Level 2.1 g/dL (3.5-5.2); Alkaline Phosphatase 57 IU/L (40-130); Aspartate Amino Transferase 13 U/L (0-40); Blood Urea Nitrogen 52 mg/dL (8-23); Calcium 7.4 mg/dL (8.5-10.5); Carbon Dioxide 18 mmol/L (22-29); Chloride 113 mmol/L (98-107); Glucose 145 mg/dL (65-115); Magnesium 2.3 mg/dL (1.7-2.3); Osmolality Calculated 303 mOsm/kg (285-295); Sodium 138 mmol/L (136-145); Total Bilirubin 0.3 mg/dL (0.15-1.2); Total Protein 5.1 g/dL (6.6-8.7)
[2021-08-04 06:47] LABS: Anion Gap 11.6 (5-19); Potassium 4.6 mmol/L (3.5-5.1)
--- NOTE | 2021-08-04 07:41 | XR_ITS ---
WS: [id number] Exam: XR chest 1V portable [id number] Date/Time of Exam: 08/04/2021 7:43 AM Reason For Exam: follow up effusion, thoracentesis Comparison 08/03/2021. The lungs are completely inflated. Left upper lobe atelectasis again noted unchanged. No pneumothorax . Small right pleural effusion. Mild infiltrate in the right base. Ill-defined nodular density along the right hilum. A right subclavian port ends in the lower one third of the SVC in good position. Sig ns of previous CABG surgery. Mild cardiac enlargement. The mediastinum is not widened. XR/XR chest 1V portable [id number] IMPRESSION: 1. Small right basal pleural effusion. Mild right basal infiltrate. 2. Ill-defined lobulated nodule at the right pulmonary hilum. 3. Left upper lobe atelectasis unchanged. Mild cardiomegaly unchanged.
[2021-08-04 07:51] LABS: Glucose Point of Care 147 mg/dL (70-110)
[2021-08-04 08:09] LABS: Neutrophils # 0.02 10^3/uL (1.8-7.7); Slide Review Slide Review Perform; White Blood Count 0.8 10^3/uL (4.0-10.0)
[2021-08-04] MEDS: budesonide 0.5 mg/2 mL Neb INHALATION ×2 (08:15→19:51)
[2021-08-04] MEDS: cefepime 2,000 MG in sodium chloride 0.9% (plus) 50 ML 100 MG IV ×2 (08:26→20:19)
[2021-08-04] MEDS: insulin lispro 100 unit/1 mL SUBCUT ×3 (08:32→18:28)
[2021-08-04] MEDS: tetanus-diphtheria tox (adult) 0.5 mL SDV IM (08:50)
[2021-08-04] MEDS: carvedilol 6.25 mg Tablet PO (09:13)
[2021-08-04] MEDS: tamsulosin 0.4 mg Capsule PO (09:14)
[2021-08-04] MEDS: sertraline 100 mg Tablet PO (09:14)
[2021-08-04] MEDS: atorvastatin 40 mg Tablet 80 MG PO (09:14)
[2021-08-04] MEDS: pantoprazole DR 40 mg Tablet PO (09:14)
[2021-08-04] MEDS: allopurinol 100 mg Tablet PO ×3 (09:14→20:20)
[2021-08-04] MEDS: topiramate 100 mg Tablet 200 MG PO (09:14)
--- NOTE | 2021-08-04 09:42 | XR_ITS ---
WS: [id number] Exam: XR foot LT 2V [id number] Date/Time of Exam: 08/04/2021 9:50 AM Reason For Exam: edema, lesion left great toe There is osseous destruction of the distal end of the distal phalanx of great toe. Osteomyelitis kasandra uld be considered. No other sign of bone destruction. No fracture or dislocation. Soft tissue swellin g of the great toe. XR/XR foot LT 2V [id number] IMPRESSION: 1. Bony destruction of the distal end of the distal phalanx of great toe with s oft tissue swelling suspicious for acute osteomyelitis. 2. Mild degenerative changes. Vascular calcifications about the foot and ankle. Heel spurs.
--- NOTE | 2021-08-04 10:30 | PC.CHAP ---
Pastoral Care Encounter/Spiritual Assessment Type of Contact [] Declined paper cup machine operator visit [] Patient/Family/Request visit [] Outpatient visit [] Follow-up visit [] Physician referral [] Code/Alert [x] Routine visit [] Staff referral [] Actively dying [] Patient sleeping [x] Family support [] [] Out of room [] Palliative care [] [] Receiving care in room [] Pre-surgical visit [] Trauma [] Long length of stay [x] ICU visit [] Other: Relational/Emotional Strength [] Patient feels connected with others/family/visitors/staff [] Distress [] Loneliness/isolation [] Abandonment Spirituality of Patient [] Person of Odalis [] Attends Hindu of their Odalis [] Believes in Prayer [] Reads Bible or Druze materials [] There are Spiritual issues to be addressed Sound Truck Operator Interventions [x] Prayer [x] Active listening [x] Non-anxious presence [x] Spiritual/emotional support [] Crisis/trauma care [] Spiritual counseling [] Bereavement support [] Provided bereavement packet [] Provided Bible/devotional materials [] Provided toy/stuffed animal, coloring book to patient or family member [] Provided Communion [] Anointing/[place] [] Salvation [x] Completed spiritual assessment [] Other: Impact on Illness or Injury [] Angry [] Fearful [] Anxious [] Often cries [] Exhaustion [] Unable to work [] Unable to attend buddhism [] Unable to walk/stand [] Unable to read [] Unable to drive [] Unable to eat/drink [] Unable to sleep [] Unable to be with family [] Patient intubated [] Other: Summary patient setting on side of bed.. present.. eating [employer] breakfast.. feeling stronger Time spent with patient 10 min
--- NOTE | 2021-08-04 10:32 | PM.PN ---
Subjective Subjective: Awake and alert. Feels better in regards to his breathing. Has some increased pain and would like something different. Medications: Reviewed: Yes Vitals/I&O/Wt Last Vital Signs Temp 98.9 F 08/03/21 23:00 Pulse 64 08/04/21 08:18 Resp 18 08/04/21 08:18 BP 122/54 08/04/21 06:00 Pulse Ox 94 08/04/21 08:18 08/03/21 08/04/21 08/04/21 22:59 06:59 14:59 Intake Total 720 / 720 200 / 920 951.167 / 951.167 Output Total 850 / 850 Balance 720 / 720 -650 / 70 951.167 / 951.167 Weight last 48 hrs Weight 141.067 kg Weight 131.995 kg Weight 131.995 kg Weight 131.995 kg Physical Exam Narrative: General exam no distress Neck is supple no lymphadenopathy thyromegaly Cardiovascular regular rate and rhythm without murmur Lungs clear but with diminished breath sounds bilaterally Abdomen is soft with positive bowel sounds. No obvious organomegaly exams deferred Extremities no cyanosis clubbing. Trace edema bilaterally. Excoriations noted on the left, with some skin breakdown on the left great toe as well as some erythema. Urinary Catheter Management: Blackwell Latex: Cath Placed During This Visit: yes Reason for Continuing Indwelling Catheter: Accurate Measurement of Urinary Output in Critically Ill Patients Urinary Catheter Date of Insertion: 08/03/21 Urinary Catheter Time of Insertion: 18:00 Data : 08/04/21 04:45 08/04/21 04:45 Micro: Microbiology 08/03/21 15:20 MRSA Culture - Final Nose 08/03/21 08:28 Urine Culture - Preliminary Urine,Clean Catch Gram Negative Rods 08/03/21 13:40 Gram Stain - Final Pleural Fluid 08/03/21 11:05 Blood Culture - Preliminary Blood SPECIMEN COLLECTED A&P Assessment and plan (1) Acute respiratory failure: He is significantly improved He would benefit from BiPAP secondary to CO2 retention. He has known sleep apnea as well. We will see if he qualifies for this when he goes home. Will encourage his use here in the hospital. He has significant lethargy during the day which may respond to this. Wean oxygen as tolerated Continue pulmonary toilet Status: Acute (2) Pleural effusion, left: Thoracentesis performed yesterday, yielding approximately 1 L. This is transudative. Doubt infection. Chest x-ray today demonstrates scant pleural fluid currently. Status: Acute (3) Pneumonia: Continue vancomycin, cefepime currently Await sputum culture, MRSA PCR His absolute neutrophil count is now less than 500. He is already on reverse isolation. He received Neulasta, so further stimulating agents are not needed at this time. Confirmed this with his oncologist. Status: Acute (4) COPD (chronic obstructive pulmonary disease): Continue pulmonary toilet No evidence of COPD exacerbation currently. Status: Acute (5) Small cell carcinoma of lung: Consistent with small cell lung cancer on pathology from [place]. Last chemotherapy July 25 carboplatinum and etoposide Status: Acute (6) Diabetes: Sliding scale insulin Status: Acute (7) CAD (coronary artery disease): No evidence of acute ischemia, continue home medications Status: Acute Qualifiers: Coronary Disease-Associated Artery/Lesion type: [place] artery [place] vs. transplanted heart: [place] heart Associated angina: unspecified whether angina present Qualified Code(s): I25.10 - Atherosclerotic heart disease of [place] coronary artery without angina pectoris (8) Pancytopenia: Continue to monitor closely. No need for transfusion currently. No evidence of bleeding. Received Neulasta on July 27. He was pancultured on admission. Note that his urine, although microscopic was not concerning is growing gram-negative rods. He is currently on broad-spectrum antibiotics secondary to his ANC less than 500. These are vancomycin and cefepime. Await full culture results. Status: Acute Plan Excoriations, skin breakdown left great toe and left leg. Check x-ray of left foot secondary to erythema of the toe. Continue IV antibiotics. Tetanus booster. Hydrofera Blue to wound, consider wound care follow-up in clinic. Chronic pain. Add Oxy IR Full code SCDs for DVT prophylaxis, anticoagulation contraindicated secondary to thrombocytopenia May transfer to stepdown unit Attestations Medical Necessity Statement*: Needs continued hospitalization for IV antibiotics secondary to pneumonia. Coding Level of Care Code Acute Set Up Mechanic Stamping Machines for g Fwd Diagnoses Acute respiratory failure J96.00 Pleural effusion, left J90 Pneumonia J18.9 COPD (chronic obstructive pulmonary disease) J44.9 Small cell carcinoma of lung C34.90 Diabetes E11.9 CAD (coronary artery disease) I25.10 Coronary Disease-Associated Artery/Lesion type: [place] artery [place] vs. transplanted heart: [place] heart Associated angina: unspecified whether angina present Pancytopenia D61.507
[2021-08-04] MEDS: oxyCODONE 5 mg IR Tab/Cap 10 MG PO ×2 (11:13→20:21)
--- NOTE | 2021-08-04 11:52 | USR_ITS ---
PROCEDURE INFORMATION: Exam: US Duplex Lower Extremity Arteries Exam date and time: 08/04/2021 3:45 PM Age: 76 years old Clinical indication: Pain; Leg, lower; Bilateral; Additional info: Pain, left toe wound TECHNIQUE: Imaging protocol: Real-time ultrasound scan of the arteries of the bilateral lower extremities with 2-D sanchez scale, color Doppler flow and spectral waveform analysis. Images documented and saved. COMPARISON: CR XR foot LT 2V [id number] 08/04/2021 9:59 AM FINDINGS: Right common femoral artery: Right lower extremity biphasic blood flow seen in the iliac, common femoral, proximal and mid femoral arteries reflecting a degree of stenosis. Right lower extremity monophasic blood flow seen in the distal femoral artery, popliteal artery and dorsalis pedis artery reflecting a degree of stenosis. Right superficial femoral artery: See above Right popliteal artery: See above Right calf/foot arteries: See above Left common femoral artery: Left lower extremity monophasic blood flow extending from the common femoral artery through the dorsalis pedis artery reflecting a degree of stenosis. Left superficial femoral artery: See above Left popliteal artery: See above Left calf/foot arteries: See above US/[place] [id number] IMPRESSION: 1. Right lower extremity biphasic blood flow seen in the iliac, common femoral, proximal and mid femoral arteries reflecting a degree of stenosis. 2. Right lower extremity monophasic blood flow seen in the distal femoral artery, popliteal artery and dorsalis pedis artery reflecting a degree of stenosis. 3. Left lower extremity monophasic blood flow extending from the common femoral artery through the dorsalis pedis artery reflecting a degree of stenosis.
--- NOTE | 2021-08-04 12:05 | PC.NURSE ---
Applied heat pack to patient right ribs to relieve pain. Pateint states neither norco, tylenol, or oxycodone is relieving his pain. Patent states, he never takes anything stronger than tylenol at home for pain.
--- NOTE | 2021-08-04 12:14 | ECG_ITS ---
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 Measurements Intervals [place] Rate: 60 P: DE: QRS: 93 QRSD: 122 T: 60 QT: 399 QTc: 399 Interpretive Statements ATRIAL FIBRILLATION BORDERLINE RIGHT AXIS DEVIATION [QRS AXIS > 90] INFERIOR MYOCARDIAL INFARCTION , PROBABLY OLD [40+ ms Q WAVE AND/OR ST/T ABNORMALITY IN II/aVF] Compared to ECG 08/03/2021 07:13:47 No significant changes Electronically Signed On 08-04-2021 17:02:37 CDT by Cresencio Macias M.D. [email or web address]
[2021-08-04 12:40] LABS: Glucose Point of Care 206 mg/dL (70-110)
--- NOTE | 2021-08-04 13:11 | P.PN_ITS ---
Subjective Subjective: Patient seen this morning. He complains of pain in his tailbone. He stated he had a fall before coming into the hospital. He is worried that he might of fractured it. is present at bedside. is requesting for a oxygen concentrator for the patient to take home when to get discharged. [facility] Patient's platelets are 14,000 today, WBC 900, neutrophil count 0.01. Discussed with oncology. Patient did get Neulasta. Not he of Neupogen or anything else at this time. We will order single donor pheresis irradiated platelets x1. Order placed with the lab. Spoke to blood bank. X-ray foot did not show evidence of osteomyelitis on the foot. Vitals/I&O/Wt Last Vital Signs Temp 97.7 F 08/05/21 11:40 Pulse 67 08/05/21 11:40 Resp 16 08/05/21 11:40 BP 108/69 08/05/21 11:40 Pulse Ox 90 08/05/21 11:40 08/04/21 08/05/21 08/05/21 22:59 06:59 14:59 Intake Total 1030 / 2453.167 60 / 2513.167 610 / 610 Output Total 1300 / 1300 250 / 1550 1450 / 1450 Balance -270 / 1153.167 -190 / 963.167 -840 / -840 Weight last 48 hrs Weight 143.517 kg Weight 141.067 kg Physical Exam Narrative: General: Alert oriented x3, patient seen laying in bed appearing uncomfortable and in pain. He would like to get boosted up in bed and is also complaining of pain in his tailbone. HEENT: Normocephalic, atraumatic, EOMI, breathing on 4 L nasal cannula. States this is his baseline. Cardio: Regular rate rhythm, normal S1-S2, muffled heart sounds secondary to large body habitus Respiratory: Good bilateral air entry, no wheezes no rhonchi appreciated, clear to auscultation with diminished sounds at bases. GI: Abdomen soft, nontender, nondistended, bowel sounds + Behavior: Appropriate and cooperative Extremities: A lot of excoriations seen on lower extremities. Trace bilateral edema. Some skin breakdown on left great toe as well as some erythema. Urinary Catheter Management: Blackwell Latex: Cath Placed During This Visit: yes Reason for Continuing Indwelling Catheter: Accurate Measurement of Urinary Output in Critically Ill Patients Urinary Catheter Date of Insertion: 08/03/21 Urinary Catheter Time of Insertion: 18:00 Data : 08/05/21 04:19 08/05/21 04:19 Micro: Microbiology 08/03/21 18:30 Gram Stain - Final Sputum - Endotracheal Tube Aspirate Sputum Culture - Preliminary 08/03/21 13:40 Gram Stain - Final Pleural Fluid Body Fluid Culture - Preliminary 08/03/21 08:28 Urine Culture - Final Urine,Clean Catch Klebsiella oxytoca 08/03/21 11:05 Blood Culture - Preliminary Blood NEGATIVE TO DATE 08/03/21 15:20 MRSA Culture - Final Nose A&P Assessment and plan (1) Pneumonia: Status: Acute (2) Pleural effusion, left: Status: Acute (3) Acute respiratory failure: Status: Acute (4) CKD (chronic kidney disease): Status: Acute (5) Ischemic cardiomyopathy: Status: Acute (6) Pleural effusion: Status: Acute (7) Small cell carcinoma of lung: Status: Acute (8) Pancytopenia: Status: Acute (9) Diabetes: Status: Acute (10) COPD (chronic obstructive pulmonary disease): Status: Acute (11) Generalized weakness: Status: Acute (12) Dehydration: Status: Acute (13) Small cell carcinoma: Status: Acute (14) Small cell lung cancer, left upper lobe: Status: Acute (15) Dyslipidemia: Status: Acute (16) Benign essential HTN: Status: Acute (17) CAD (coronary artery disease): Status: Acute Qualifiers: Coronary Disease-Associated Artery/Lesion type: [place] artery [place] vs. transplanted heart: [place] heart Associated angina: unspecified whether angina present Qualified Code(s): I25.10 - Atherosclerotic heart disease of [place] coronary artery without angina pectoris Plan #Severe neutropenia/pancytopenia #Severe thrombocytopenia/pancytopenia #Small cell lung cancer, on chemotherapy?last cycle July 25 #Obstructive sleep apnea, requires BiPAP #COPD #Osteomyelitis of left toe #Pleural effusion/pneumonia status post thoracentesis #UTI with Klebsiella oxytoca #Diabetes mellitus, insulin-dependent #Hypertension #Coronary artery disease history #Acute respiratory failure with hypercarbia?improved #Anxiety and depression #History of afibrillation #Pulmonary hypertension ? Blood culture negative to date, sputum culture pending ? Order platelets 1 unit single donor pheresis irradiated. Discussed with Dr. Hanley on the phone. ? Already received Neulasta July 27 ? Continue reverse isolation, will try to move to negative pressure room if available ? Continue vancomycin and cefepime ? Once cell counts improve immune status better, will consult podiatry versus general surgery for treatment of osteomyelitis of toe. Amputation would be ideal in this case since patient wants to continue further chemotherapy ? batch still operator working on getting patient BiPAP. We will update them regarding oxygen concentrator as well ? Thoracentesis performed, 1 L removed, most likely transudate. Final report pending ? Continue Lipitor 80 daily, Coreg 3.125 twice daily, hold home furosemide, lisinopril ? Continue topiramate, Zoloft ? Insulin sliding scale?tight glucose control, will add Lantus 5 unit at bedtime ? Patient will definitely need to follow-up with pulmonology, oncology at discharge Continue to monitor labs Full code Attestations Medical Necessity Statement*: Requires continued inpatient stay. He has osteomyelitis and is severely neutropenic and thrombocytopenic. Also has a UTI going on. I expect him to stay in the hospital greater than 72 hours for management of all the above. He may be a candidate for amputation with osteomyelitis. Cannot discharge patient until cell counts improve. Coding Level of Care Code Acute Residential Finish Carpenter for Chg Fwd Diagnoses Pneumonia J18.9 Pleural effusion, left J90 Acute respiratory failure J96.00 CKD (chronic kidney disease) N18.9 Ischemic cardiomyopathy I25.5 Pleural effusion J90 Small cell carcinoma of lung C34.90 Pancytopenia D61.818 Diabetes E11.9 COPD (chronic obstructive pulmonary disease) J44.9 Generalized weakness R53.1 Dehydration E86.0 Small cell carcinoma C80.1 Small cell lung cancer, left upper lobe C34.12 Dyslipidemia E78.5 Benign essential HTN I10 CAD (coronary artery disease) I25.10 Coronary Disease-Associated Artery/Lesion type: [place] artery [place] vs. transplanted heart: [place] heart Associated angina: unspecified whether angina present
[2021-08-04] MEDS: sodium chloride 0.9% 250 ML IV (15:18)
[2021-08-04 17:55] LABS: Glucose Point of Care 173 mg/dL (70-110)
[2021-08-04] MEDS: carvedilol 3.125 mg Tablet PO (18:28)
--- NOTE | 2021-08-04 18:53 | PC.NURSE ---
Patient sitting at side of bed eating dinner. at bedside. Patient reports no pain at this time. 1200ml urine output.
[2021-08-04 22:04] LABS: Glucose Point of Care 217 mg/dL (70-110)
[2021-08-04] MEDS: morphine 4 mg/mL SDV 1 mL 2 MG IVP (22:04)
[2021-08-05] VITALS (24 sets, daily range): BP systolic 99–128; BP diastolic 60–80; PULSE 60–94; RESP 12–23; TEMP 36.4–36.7; O2SAT 90–99
[2021-08-05] MEDS: ipratropium-albuterol 3 mL Neb INHALATION ×8 (00:22→23:36)
[2021-08-05] MEDS: oxyCODONE 5 mg IR Tab/Cap 10 MG PO ×2 (01:54→19:36)
[2021-08-05 04:30] LABS: Eosinophils % 2.2 %; Hematocrit 33.7 % (42.0-52.0); Hemoglobin 10.1 g/dL (11.7-16.6); Lymphocytes # 0.9 10^3/uL (0.8-4.8); Lymphocytes % 92.5 %; Mean Corpuscular Hemoglobin 30.1 pg (28.0-34.0); Mean Corpuscular Volume 100.3 fl (80-94); Mean Platelet Volume 10.9 fL (7.4-10.4); Monocytes % 4.3 %; Nucleated Red Blood Cells % 0 %; Red Blood Count 3.36 10^6/uL (4.1-5.3)
[2021-08-05 04:48] LABS: Alanine Aminotransferase 12 U/L (0-41); Albumin Level 2.8 g/dL (3.5-5.2); Alkaline Phosphatase 57 IU/L (40-130); Aspartate Amino Transferase 12 U/L (0-40); Blood Urea Nitrogen 60 mg/dL (8-23); Calcium 7.6 mg/dL (8.5-10.5); Carbon Dioxide 18 mmol/L (22-29); Chloride 108 mmol/L (98-107); Globulin 2.5 g/dL (1.3-4.6); Glucose 156 mg/dL (65-115); Osmolality Calculated 300 mOsm/kg (285-295); Slide Review Slide Review Perform; Sodium 135 mmol/L (136-145); Total Bilirubin 0.3 mg/dL (0.15-1.2); Total Protein 5.3 g/dL (6.6-8.7)
[2021-08-05 04:50] LABS: Neutrophils # 0.01 10^3/uL (1.8-7.7); Platelet Count 14 10^3/cmm (130-400); White Blood Count 0.9 10^3/uL (4.0-10.0)
[2021-08-05 04:52] LABS: Anion Gap 13.9 (5-19); Potassium 4.9 mmol/L (3.5-5.1)
[2021-08-05 06:59] LABS: Glucose Point of Care 167 mg/dL (70-110)
[2021-08-05] MEDS: cefepime 2,000 MG in sodium chloride 0.9% (plus) 50 ML 100 MG IV ×2 (08:11→19:37)
[2021-08-05] MEDS: insulin lispro 100 unit/1 mL SUBCUT ×3 (08:11→17:45)
[2021-08-05] MEDS: tamsulosin 0.4 mg Capsule PO (08:12)
[2021-08-05] MEDS: allopurinol 100 mg Tablet PO ×3 (08:12→19:35)
[2021-08-05] MEDS: carvedilol 3.125 mg Tablet PO ×2 (08:12→17:46)
[2021-08-05] MEDS: pantoprazole DR 40 mg Tablet PO (08:12)
[2021-08-05] MEDS: sertraline 100 mg Tablet PO (08:12)
[2021-08-05] MEDS: topiramate 100 mg Tablet 200 MG PO (08:12)
[2021-08-05] MEDS: atorvastatin 40 mg Tablet 80 MG PO (08:12)
[2021-08-05] MEDS: budesonide 0.5 mg/2 mL Neb INHALATION ×2 (08:21→19:54)
[2021-08-05 11:29] LABS: Glucose Point of Care 198 mg/dL (70-110)
[2021-08-05 17:17] LABS: Glucose Point of Care 208 mg/dL (70-110)
[2021-08-05 20:56] LABS: Glucose Point of Care 153 mg/dL (70-110)
[2021-08-06] VITALS (25 sets, daily range): BP systolic 92–148; BP diastolic 52–110; PULSE 54–100; RESP 1–28; TEMP 36.2–37.2; O2SAT 87–98
[2021-08-06] MEDS: ipratropium-albuterol 3 mL Neb INHALATION ×5 (04:17→19:46)
[2021-08-06 06:47] LABS: Glucose Point of Care 137 mg/dL (70-110)
[2021-08-06 06:50] LABS: Eosinophils # 0.1 10^3/uL (0.0-0.8); Eosinophils % 5.1 %; Hematocrit 29.7 % (42.0-52.0); Hemoglobin 9.4 g/dL (11.7-16.6); Lymphocytes # 0.9 10^3/uL (0.8-4.8); Lymphocytes % 87.9 %; Mean Corpuscular HGB Conc 31.6 g/dL (30.0-36.0); Mean Corpuscular Hemoglobin 30.4 pg (28.0-34.0); Mean Corpuscular Volume 96.1 fl (80-94); Mean Platelet Volume 12.2 fL (7.4-10.4); Monocytes # 0.1 10^3/uL (0.2-0.9); Monocytes % 5.1 %; Neutrophils % 1.9 %; Nucleated Red Blood Cells % 0 %; Red Blood Count 3.09 10^6/uL (4.1-5.3); Red Cell Distribution Width 15.9 % (12.1-15.1)
[2021-08-06 07:09] LABS: Anion Gap 14.7 (5-19); Blood Urea Nitrogen 64 mg/dL (8-23); Calcium 7.9 mg/dL (8.5-10.5); Carbon Dioxide 18 mmol/L (22-29); Chloride 109 mmol/L (98-107); Glucose 140 mg/dL (65-115); Magnesium 2.1 mg/dL (1.7-2.3); Osmolality Calculated 305 mOsm/kg (285-295); Potassium 4.7 mmol/L (3.5-5.1); Sodium 137 mmol/L (136-145)
[2021-08-06 07:22] LABS: Vancomycin Trough 42.7 ug/mL (10-15)
[2021-08-06] MEDS: budesonide 0.5 mg/2 mL Neb INHALATION ×2 (07:49→19:46)
[2021-08-06 08:26] LABS: Neutrophils # 0.02 10^3/uL (1.8-7.7); Platelet Count 9 10^3/cmm (130-400)
[2021-08-06 08:27] LABS: Slide Review Slide Review Perform
--- NOTE | 2021-08-06 09:59 | PM.CONSULT ---
Providers/Reason For Consult Consulting Physician/Specialty*: Chrissy Brown DO, telenephrology Reason for Consult*: Acute Kidney Injury Requesting Physician: Michell Jimenez MD Attending Physician: Michell Jimenez MD Primary Care Provider: Contreras Hanson DO History of Present Illness History of Present Illness Tobias Song is a 76 year old male presents for evaluation of shortness of breath. Non-small cell lung cancer, last dose carboplatinum, etoposide received on July 25. Medications/Allergies Home Medications Medication Instructions Recorded Confirmed Last Taken Type cholecalciferol (vitamin D3) 25 25 mcg PO DAILY 01/25/21 08/02/21 08/01/21 History mcg (1,000 unit) capsule cilostazol 100 mg tablet 50 mg PO BID tab 01/25/21 08/02/21 08/01/21 History insulin glargine 100 unit/mL 3 unit SUBCUT DAILY ml 01/25/21 08/02/21 08/01/21 History subcutaneous solution (Lantus U-100 Insulin) lisinopril 40 mg tablet 20 mg PO BID tab 01/25/21 08/02/21 08/01/21 History nebulizers #1 ea 01/25/21 08/02/21 Unknown Rx omega-3 fatty acids 1,000 mg 1,000 mg PO BID 01/25/21 08/02/21 08/01/21 History capsule (Fish Oil Concentrate) rosuvastatin 40 mg tablet 20 mg PO DAILY tab 01/25/21 08/02/21 08/01/21 History sertraline 100 mg tablet 100 mg PO DAILY 01/25/21 08/02/21 08/01/21 History carvedilol 12.5 mg tablet 6.25 mg PO BID tab 02/01/21 08/02/21 08/01/21 History multivitamin 1 tab PO DAILY 02/01/21 08/02/21 08/01/21 History tamsulosin 0.4 mg capsule 0.4 mg PO DAILY 05/19/21 08/02/21 08/01/21 History topiramate 200 mg tablet 200 mg PO DAILY tab 05/23/21 08/02/21 08/01/21 History furosemide 20 mg tablet 20 mg PO DAILY 06/29/21 08/02/21 08/01/21 History allopurinol 100 mg tablet 100 mg PO TID #40 tab 07/13/21 08/02/21 08/01/21 Rx hydrocodone 5 mg-acetaminophen 325 1 tab PO Q6H PRN #10 tab 07/19/21 08/02/21 Unknown Rx mg tablet lorazepam 1 mg tablet 0.5 - 1 mg PO Q6H PRN #30 tab 07/25/21 08/02/21 Unknown Rx olanzapine 5 mg tablet 5 mg PO QPM #30 tab 07/25/21 08/02/21 08/01/21 Rx prochlorperazine maleate 10 mg 10 mg PO Q4H PRN #30 tab 07/25/21 08/02/21 Unknown Rx tablet (Compazine) albuterol sulfate 90 mcg/actuation 2 puff INHALATION QID PRN 08/02/21 08/02/21 Unknown History aerosol inhaler empagliflozin 10 mg tablet 10 mg PO DAILY 08/02/21 08/02/21 08/01/21 History (Jardiance) Allergies Allergy/AdvReac Type Severity Reaction Status Date / Time Iodinated Contrast Media Allergy ADR-Itching Verified 08/02/21 11:41 Current Medications Generic Name Dose Route Start Last Admin Trade Name Freq PRN Reason Stop Dose Admin Acetaminophen 650 mg 08/03/21 17:17 08/04/21 05:46 Acetaminophen 325 Mg Tablet PO 650 mg Q6H PRN Administration MILD PAIN Albuterol/Ipratropium 3 ml 08/05/21 00:23 08/06/21 07:49 Ipratropium-Albuterol 3 Ml Neb INHALATION 3 ml Q4H.RESPIRATORY DARRYL Administration Allopurinol 100 mg 08/03/21 17:17 08/05/21 19:35 Allopurinol 100 Mg Tablet PO 100 mg TID DARRYL Administration Atorvastatin Calcium 80 mg 08/04/21 09:00 08/05/21 08:12 Atorvastatin 40 Mg Tablet PO 80 mg DAILY DARRYL Administration Budesonide 0.5 mg 08/03/21 20:00 08/06/21 07:49 Budesonide 0.5 Mg/2 Ml Neb INHALATION 0.5 mg BID.RESPIRATORY DARRYL Administration Carvedilol 3.125 mg 08/04/21 18:00 08/05/21 17:46 Carvedilol 3.125 Mg Tablet PO 3.125 mg BID DARRYL Administration Cefepime HCl 2,000 mg/ Sodium 50 mls @ 100 mls/hr 08/03/21 20:00 08/05/21 19:52 Chloride IV Infused Q12H DARRYL Infusion Protocol Vancomycin HCl 2,000 mg/ 500 mls @ 250 mls/hr 08/04/21 20:00 08/05/21 22:56 Sodium Chloride IV Infused Q12H DARRYL Infusion Insulin Human Lispro 0 unit 08/03/21 18:00 08/06/21 07:20 Insulin Lispro 100 Unit/1 Ml SUBCUT Not Given WM&BEDTIME DARRYL Protocol Morphine Sulfate 2 mg 08/04/21 12:14 08/04/21 22:04 Morphine 4 Mg/Ml Sdv 1 Ml IVP 2 mg Q4H PRN Administration SEVERE PAIN Oxycodone HCl 10 mg 08/04/21 10:15 08/05/21 19:36 Oxycodone 5 Mg Ir Tab/Cap PO 10 mg Q4H PRN Administration SEVERE PAIN Pantoprazole Sodium 40 mg 08/04/21 09:00 08/05/21 08:[address] 40 Mg Tablet PO 40 mg DAILY DARRYL Administration Sertraline HCl 100 mg 08/04/21 09:00 08/05/21 08:12 Sertraline 100 Mg Tablet PO 100 mg DAILY DARRYL Administration Tamsulosin HCl 0.4 mg 08/04/21 09:00 08/05/21 08:12 Tamsulosin 0.4 Mg Capsule PO 0.4 mg DAILY DARRYL Administration Topiramate 200 mg 08/04/21 09:00 08/05/21 08:12 Topiramate 100 Mg Tablet PO 200 mg DAILY DARRYL Administration PFSH Acute PFSH: Medical History Anxiety and depression BPH (benign prostatic hyperplasia) Chronic obstructive pulmonary disease Baseline 3 L oxygen CKD (chronic kidney disease) Hx of type 2 diabetes mellitus Ischemic cardiomyopathy Lung cancer New onset atrial fibrillation Obesity hypoventilation syndrome SJ (obstructive sleep apnea) Peripheral vascular disease Pulmonary hypertension Shortness of breath on exertion Small cell lung cancer, left upper lobe Surgical History (Updated 08/03/21 @ 14:45 by Get Orantes MD) History of tonsillectomy and adenoidectomy Hx of abdominal surgery Hx of appendectomy Hx of CABG Hx of foot surgery Hx of hammer toe correction Postsurgical aortocoronary bypass status Family History Mother CAD (coronary artery disease) Family/Other CAD (coronary artery disease) Dementia Diabetes Father CAD (coronary artery disease) Grandfather CAD (coronary artery disease) Grandmother CAD (coronary artery disease) Brother CAD (coronary artery disease) Sister CAD (coronary artery disease) Cancer Lung disease Sister Cancer Other Hypertension Denies family history of Clotting disorder Hyperlipidemia Psychiatric illness Chronic kidney disease (CKD) Suicide Anesthesia complication Bleeding disorder Stroke Social History Smoking and tobacco status: former smoker Quit status (tobacco): has quit using tobacco Year quit tobacco: 2020 Former quit date comment: 3ppd x 62years, started age 13 Alcohol intake: never Vitals/I&O/Wt Last Vital Signs Temp 97.5 F L 08/06/21 08:00 Pulse 74 08/06/21 08:00 Resp 19 H 08/06/21 08:00 BP 135/72 08/06/21 08:00 Pulse Ox 97 08/06/21 08:00 08/05/21 08/06/21 08/06/21 22:59 06:59 14:59 Intake Total 995 / 1845 Output Total 1200 / 2650 750 / 3400 Balance -205 / -805 -750 / -1555 Weight last 48 hrs Weight 143.517 kg Physical Exam Urinary Catheter Management: Blackwell Latex: Cath Placed During This Visit: yes Reason for Continuing Indwelling Catheter: Accurate Measurement of Urinary Output in Critically Ill Patients Urinary Catheter Date of Insertion: 08/03/21 Urinary Catheter Time of Insertion: 18:00 Data : 08/06/21 06:40 08/06/21 06:40 Other Labs: 7.26/46 urinalysis + blood, few RBC, no protein Micro: Microbiology 08/03/21 13:40 Gram Stain - Final Pleural Fluid Body Fluid Culture - Final 08/03/21 18:30 Gram Stain - Final Sputum - Endotracheal Tube Aspirate Sputum Culture - Final 08/03/21 13:40 Mycobacterial Smear - Preliminary Body Fluids - Pleura 08/03/21 08:28 Urine Culture - Final Urine,Clean Catch Klebsiella oxytoca Other data: vanco 42.7 A&P Assessment and plan (1) Metabolic acidosis: Status: Acute Plan seen via telemedicine with assistance of RN at bedside. 1. Acute kidney injury, nonoliguric. Was on ACEi, diuretic, SGLT2i as outpatient. All on hold. High vancomycin level. Current urine output approx 70 ml/hr. 2. Metabolic acidosis, respiratory acidosis 3. Chronic kidney disease 4. Pancytopenia, toe osteomyelitis Recommend: Add sodium bicarbonate. Check CK. Hold vancomycin.Consideration for transfer to tertiary care hospital. Consult Attestations Medical Necessity Statement: see above Time Spent in Patient Care: 16 - 35 minutes Coding Level of Care Code Acute Supervisor Pipeline Maintenance for Elise Peralta Diagnoses Metabolic acidosis E87.2
[2021-08-06] MEDS: cefepime 2,000 MG in sodium chloride 0.9% (plus) 50 ML 100 MG IV (10:01)
[2021-08-06] MEDS: tamsulosin 0.4 mg Capsule PO (10:02)
[2021-08-06] MEDS: topiramate 100 mg Tablet 200 MG PO (10:02)
[2021-08-06] MEDS: atorvastatin 40 mg Tablet 80 MG PO (10:02)
[2021-08-06] MEDS: pantoprazole DR 40 mg Tablet PO (10:02)
[2021-08-06] MEDS: allopurinol 100 mg Tablet PO (10:02)
[2021-08-06] MEDS: carvedilol 3.125 mg Tablet PO (10:02)
[2021-08-06] MEDS: sertraline 100 mg Tablet PO (10:02)
--- NOTE | 2021-08-06 10:03 | XRR_ITS ---
PROCEDURE INFORMATION: Exam: XR Chest Exam date and time: 08/06/2021 10:16 AM Age: 76 years old Clinical indication: Condition or disease; Lung condition and disease; Cancer of the lung; Left; Unspecified; Additional info: Hypoxia TECHNIQUE: Imaging protocol: XR of the chest. Views: 1 view. COMPARISON: 1. CR XR chest 1V portable [id number] 08/04/2021 7:[address] chest wo [facility] [id number] 08/03/2021 12:15 AM FINDINGS: Tubes, catheters and devices: Right-sided chest wall venous chest port noted with the distal tip in the mid SVC. Lungs: Consolidate in the left suprahilar region again noted, with increased density compared to prior exam. The remainder of the lungs are clear. Previously noted right upper lobe mass radiographically evident. Pleural spaces: No pneumothorax. No large pleural effusion. Heart/Mediastinum: Persistent cardiomegaly. Bones/joints: Median sternotomy wires and postsurgical changes in the mediastinum identified. XR/XR chest 1V portable [id number] IMPRESSION: Consolidation in the left suprahilar region again noted, now with increased density compared to prior exam.
--- NOTE | 2021-08-06 10:11 | PC.SOCIAL ---
IMM update IMM updated with patient's and family at bedside. Verbalized an understanding. Copy Pg 2 provided. Initialled, dated, timed, and placed in chart.
[2021-08-06 11:49] LABS: ABG PCO2 42.9 mmHg (35-45); ABG PH Result 7.22 (7.35-7.45); Arterial Blood Gas Hematocrit 35.1 % (42-52); Base Excess ABG -9.8 mmol/L (-2.0-2.0); Blood Gas Allen Test Pos; Blood Gas Sample Site Radial, left; Blood Gas Sample Type Arterial; Carboxyhemoglobin 1.1 %THgb (0.4-20.1); HCO3 ABG 17.5 mmol/L (22-26); HGB O2 Sat 95.4 % (95-100); Ionized Calcium Level - ABG 1.3 mmol/L (1.1-1.4); Methemoglobin 0.7 % (0.4-1.5); Oxygen Device BIPAP; Oxygen Saturation ABG 97.2; PO2 ABG 92.8 mmHg (80.0-100.0); Potassium Level - ABG 4.7 mmol/L (3.5-5.0); Total Hemoglobin 11.5 g/dL (14-18)
[2021-08-06] MEDS: oxyCODONE 5 mg IR Tab/Cap 10 MG PO (12:06)
[2021-08-06 12:38] LABS: Glucose Point of Care 155 mg/dL (70-110)
[2021-08-06] MEDS: insulin lispro 100 unit/1 mL SUBCUT ×2 (12:44→18:51)
[2021-08-06 13:18] LABS: Lactate (Lactic Acid level) 0.7 mmol/L (0.5-2.2)
--- NOTE | 2021-08-06 13:55 | XRR_ITS ---
PROCEDURE INFORMATION: Exam: XR Chest Exam date and time: 08/06/2021 2:18 PM Age: 76 years old Clinical indication: Device placement; Ett placement (vent status); Patient HX: Post et tube, central line, og placement TECHNIQUE: Imaging protocol: XR of the chest. Views: 1 view. COMPARISON: CR (CHEST, ) 08/06/2021 10:16 AM, CT chest 08/03/2021 FINDINGS: Tubes, catheters and devices: Endotracheal tube in proper position 4 cm above the frank. OG tube terminates in the stomach. Right central line terminates in the proximal right atrium. Right chest port is stable positioning. Lungs: Similar focal opacity/atelectasis in the left upper lobe. Pleural spaces: No pleural effusion. No pneumothorax. Heart/Mediastinum: Sequela of prior CABG. Stable cardiomegaly. Bones/joints: Visualized osseous structures are intact. XR/XR chest 1V portable [id number] IMPRESSION: 1. Proper positioning of lines and tubes. 2. Similar focal opacity/atelectasis in the left upper lobe.
[2021-08-06] MEDS: propofol 1,000 MG/100 ML INJ 4.31 MG IV (14:00)
[2021-08-06] MEDS: succinylcholine 20 mg/mL SDV 10mL 140 MG IVP (15:00)
--- NOTE | 2021-08-06 16:19 | PM.PN ---
Subjective Subjective: Seen this morning. Rn reported pt was lethargic overnight and bipap was placed. This morning if we removed BiPAP or high flow patient desaturated. Case was discussed with family at bedside. Platelet count 9000. Previously 14,000. This is despite giving him 1 unit of platelets. Neutrophil counts are still low, WBC 1000. Chest x-ray appeared worse compared to yesterday. Consolidation worsening left upper lobe. ABG showed 7.22/42/90/17 this was while on BiPAP. Blood pressure dropped to 92/52. Vitals/I&O/Wt Last Vital Signs Temp 97.2 F L 08/06/21 16:01 Pulse 65 08/06/21 16:01 Resp 20 H 08/06/21 16:01 BP 127/61 08/06/21 13:41 Pulse Ox 92 08/06/21 16:01 08/06/21 08/06/21 08/06/21 06:59 14:59 22:59 Intake Total 162.437 / 162.437 6.744 / 169.181 Output Total 750 / 3400 Balance -750 / -1555 162.437 / 162.437 6.744 / 169.181 Weight last 48 hrs Weight 143.517 kg Physical Exam Narrative: General: Alert oriented, patient seen laying in bed appearing comfortable on saturating 90%. Settings 10/10 HEENT: Normocephalic, atraumatic, EOMI, . Cardio: Regular rate rhythm, normal S1-S2, muffled heart sounds secondary to large body habitus Respiratory: Transmitted breath sounds from BiPAP, diminished at bases, unable to fully assess due to positioning and large body habitus, for the most part no wheezes or rhonchi appreciated. GI: Abdomen soft, nontender, nondistended, obese large rounded abdomen bowel sounds + Extremities: A lot of excoriations seen on lower extremities.? Trace bilateral edema.? Some skin breakdown on left great toe as well as some erythema. Urinary Catheter Management: Blackwell Latex: Cath Placed During This Visit: yes Reason for Continuing Indwelling Catheter: Accurate Measurement of Urinary Output in Critically Ill Patients Urinary Catheter Date of Insertion: 08/03/21 Urinary Catheter Time of Insertion: 18:00 Data : 08/06/21 06:40 08/06/21 06:40 Micro: Microbiology 08/03/21 13:40 Gram Stain - Final Pleural Fluid Body Fluid Culture - Final 08/03/21 18:30 Gram Stain - Final Sputum - Endotracheal Tube Aspirate Sputum Culture - Final 08/03/21 13:40 Mycobacterial Smear - Preliminary Body Fluids - Pleura A&P Assessment and plan (1) Pneumonia: Status: Acute (2) Pleural effusion, left: Status: Acute (3) Acute respiratory failure: Status: Acute (4) CKD (chronic kidney disease): Status: Acute (5) New onset atrial fibrillation: Status: Acute (6) Ischemic cardiomyopathy: Status: Acute (7) Pleural effusion: Status: Acute (8) Small cell carcinoma of lung: Status: Acute (9) Metabolic acidosis: Status: Acute (10) Pancytopenia: Status: Acute (11) Diabetes: Status: Acute (12) COPD (chronic obstructive pulmonary disease): Status: Acute (13) Dehydration: Status: Acute (14) Generalized weakness: Status: Acute (15) Diarrhea: Status: Acute (16) Small cell carcinoma: Status: Acute (17) Small cell lung cancer, left upper lobe: Status: Acute (18) Lung cancer: Status: Acute (19) Dyslipidemia: Status: Acute (20) Benign essential HTN: Status: Acute (21) CAD (coronary artery disease): Status: Acute Qualifiers: Coronary Disease-Associated Artery/Lesion type: [place] artery [place] vs. transplanted heart: [place] heart Associated angina: unspecified whether angina present Qualified Code(s): I25.10 - Atherosclerotic heart disease of [place] coronary artery without angina pectoris (22) CHF (congestive heart failure): Status: Acute Qualifiers: Heart failure type: systolic Heart failure chronicity: acute on chronic Qualified Code(s): I50.23 - Acute on chronic systolic (congestive) heart failure Plan #Severe neutropenia/pancytopenia #Severe thrombocytopenia/pancytopenia #Metabolic acidosis #Small cell lung cancer, on chemotherapy?last cycle July 25 #Obstructive sleep apnea, requires BiPAP #COPD #Osteomyelitis of left toe #Left upper lobe pneumonia #Pleural Effusion status post thoracentesis #UTI with Klebsiella oxytoca #Diabetes mellitus, insulin-dependent #Hypertension #Coronary artery disease history #Acute respiratory failure with hypercarbia #Anxiety and depression #History of afibrillation #Pulmonary hypertension ? Blood culture negative to date, sputum culture pending ? Received 1 unit of platelet yesterday. Counts did not respond. 9000 today. Order 2 more units today. ? Already received Neulasta July 27 ? Gas 7.22/42/90/17.5. Patient was intubated for hypercarbic impending respiratory failure. He was not compensating. Bicarb tablets added by nephro. I discussed his case with pulmonology over the phone before intubating this patient. ? Hold vancomycin as Vanco trough is 49 today. ? Start IV metronidazole 500 every 8 hours, azithromycin 500 daily, voriconazole 250 twice daily, cefepime 2 g every 12 hours. ? Once cell counts improve immune status better, will consult podiatry versus general surgery for treatment of osteomyelitis of toe.? Amputation would be ideal in this case since patient wants to continue further chemotherapy ? sweet dough mixer working on getting patient BiPAP.? We will update them regarding oxygen concentrator as well ? Thoracentesis performed, 1 L removed, most likely transudate.? Final report pending ? hold Lipitor 80 daily, Coreg 3.125 twice daily, hold home furosemide, lisinopril ? Continue topiramate, Zoloft ? Insulin sliding scale?tight glucose control, will add Lantus 5 unit at bedtime ? Discussed all of the above with Dr. Hanley and Dr. Brown from nephrology. Decision was made to transfer patient to tertiary care center. I called [facility], [facility] ( hospitals), there is currently no bed available. ? If patient does end up staying here, consult pulmonology in a.m. ? Continue to monitor urine output. Check CPK ?We will repeat blood- will repeat blood gas - versed and fentanyl, add levophed if needed. Pressure borderline soft. stopped propofol due to bradycardia] - will repeat labs after platelet infusion - With small cell lung cancer and chemo, cell counts should recover rather quickly, however in his case they are still low. Discussed with ID at [facility]. Continue to monitor pt. Full code Attestations Medical Necessity Statement*: critically ill in ICU Coding Level of Care Code Acute Encyclopedia Research Worker for Chg Fwd Diagnoses Pneumonia J18.9 Pleural effusion, left J90 Acute respiratory failure J96.00 CKD (chronic kidney disease) N18.9 New onset atrial fibrillation I48.91 Ischemic cardiomyopathy I25.5 Pleural effusion J90 Small cell carcinoma of lung C34.90 Metabolic acidosis E87.2 Pancytopenia D61.818 Diabetes E11.9 COPD (chronic obstructive pulmonary disease) J44.9 Dehydration E86.0 Generalized weakness R53.1 Diarrhea R19.7 Small cell carcinoma C80.1 Small cell lung cancer, left upper lobe C34.12 Lung cancer C34.90 Dyslipidemia E78.5 Benign essential HTN I10 CAD (coronary artery disease) I25.10 Coronary Disease-Associated Artery/Lesion type: [place] artery [place] vs. transplanted heart: [place] heart Associated angina: unspecified whether angina present CHF (congestive heart failure) I50.23 Heart failure type: systolic Heart failure chronicity: acute on chronic
--- NOTE | 2021-08-06 16:23 | PM.ACPR ---
Procedure/Consent Time out: Time Out Performed: Yes Consent: Consent for Procedure: Emergency procedure Additional Consent Information: Was called by Dr. Jimenez to assist with this patient in the ICU. Patient was on the floor was decompensating and required better IV access as well as needing to be intubated for hypercapnia. Acute Procedures Central Line Placement: Right IJ: Time out performed: Yes Patient placed on monitor/pulse ox: Yes MD prep: mask, gown and gloves Central line prep: Chlorhexidine scrub Ultrasound used for placement: Yes Central line lumen inserted: triple Post procedure: sutured in place Post procedure x-ray: tip of catheter in good position Patient tolerated procedure: well Complications: none Epistaxis Control: Time out performed: Yes Intubation: Sedative: etomidate Mg given: 40 Paralytic: succinylcholine Mg given: 140 Laryngoscope: fiber optic video scope Assist device used: fiber optic device ET tube size: 8 ET tube uncuffed: No Tube secured depth (cm): 22 Tube secured location: teeth Tube placement confirmation: visualized tube passing through cords, equal breath sounds bilaterally, no breath sounds over epigastrium and confirmation by capnometry Patient tolerated procedure: well Intubation complications: none
[2021-08-06] MEDS: azithromycin 500 MG in sodium chloride 0.9% 250 ML 250 MG IV (16:53)
--- NOTE | 2021-08-06 17:38 | PM.TDS ---
Transfer Summary Providers Date of Admission: 08/03/21 17:16 Date of Discharge/Transfer: 08/06/21 Attending Provider at Admission: Get Orantes MD Attending Provider at Transfer: Michell Jimenez MD Primary Care Provider: Contreras Hanson DO Transfer Plans: Anticipated date of transfer: 08/06/21. Additional transfer facility information: [place], [place] Dr. Celestine Vila. Diagnoses at Discharge Discharge Diagnosis (1) Pneumonia: Status: Acute (2) Pleural effusion, left: Status: Acute (3) Acute respiratory failure: Status: Acute (4) CKD (chronic kidney disease): Status: Acute (5) New onset atrial fibrillation: Status: Acute (6) Ischemic cardiomyopathy: Status: Acute (7) Pleural effusion: Status: Acute (8) Small cell carcinoma of lung: Status: Acute (9) Metabolic acidosis: Status: Acute (10) Pancytopenia: Status: Acute (11) Diabetes: Status: Acute (12) COPD (chronic obstructive pulmonary disease): Status: Acute (13) Dehydration: Status: Acute (14) Generalized weakness: Status: Acute (15) Diarrhea: Status: Acute (16) Small cell carcinoma: Status: Acute (17) Small cell lung cancer, left upper lobe: Status: Acute (18) Lung cancer: Status: Acute (19) Dyslipidemia: Status: Acute (20) Benign essential HTN: Status: Acute (21) CAD (coronary artery disease): Status: Acute Qualifiers: Coronary Disease-Associated Artery/Lesion type: habematolel artery Hughes vs. transplanted heart: habematolel heart Associated angina: unspecified whether angina present Qualified Code(s): I25.10 - Atherosclerotic heart disease of habematolel coronary artery without angina pectoris (22) CHF (congestive heart failure): Status: Acute Qualifiers: Heart failure type: systolic Heart failure chronicity: acute on chronic Qualified Code(s): I50.23 - Acute on chronic systolic (congestive) heart failure Reason for Visit Reason for Visit Low blood Counts, Low bp Brief History: Tobias Song is a 76 year old male who presented to the emergency department last night, with fatigue and some increased shortness of breath.? He had been seen by his oncologist earlier and noted that his counts were low, and he had some hypoxia in the office.? He had not had any fever at home in the last several days but may be had some chills or fever right after chemotherapy on 25 July.? indicates he did receive Neupogen.? Patient reports he is short of breath.? He denies any chest pain.? No nausea or vomiting.? Occasionally he will have some loose stool but has not been constipated.? I consulted been done earlier this morning, and after the point the patient worsened, requiring BiPAP and had evidence of respiratory acidosis. He has history of non-small cell lung cancer, for which she is undergoing chemotherapy.? He last received carboplatinum, etoposide on July 25. Hospital Course Hospital Course Patient was initially admitted for shortness of breath, fatigue and he went to see his oncologist early therefore patient was sent to the hospital for further management. On arrival it was found that he had a large pleural effusion and patient had worsening acidosis requiring BiPAP. Thoracentesis was performed and 1 L was removed. He was covered with vancomycin and cefepime 2 g every 12 hours. Patient has been diagnosed with small cell lung cancer confirmed by biopsy by pathologist at [facility]. He had his first cycle of chemotherapy on July 25. On July 27 he received Neulasta x1. He has remained severely neutropenic and thrombocytopenic throughout his hospital stay. Hemoglobin has been stable between 8-9. Over the last few days his platelets have been dropping with levels down to 14,000 on 08/05. 1 unit of platelets was ordered and his counts did not improve instead they plummeted to 9000. 2 more units of platelets ordered today. They are currently transfusing. Posttransfusion CBC pending. Patient has been on BiPAP all night and at times on high flow. Report from nursing staff that patient has been more lethargic and is unable to tolerate taking off the BiPAP due to desaturation. Chest x-ray was rechecked which showed worsening consolidation in left upper lobe. ABG showed 7.2 //17 0.5. He is not compensating appropriately to his metabolic acidosis. Bicarbonate tablets were added today by telemetry nephrology service. Creatinine has taken a bump up to 1.9. His baseline is 1.1-1.3. Vancomycin trough was 42 today. Vancomycin has been held since then. I called and discussed his case with our local oncologist here and discussed with program supervisor. We decided to transfer patient to higher level of care. His blood pressure was soft at 92/52. Patient had to be intubated for impending respiratory failure and hypercarbia. Discussed with Pig Handler over phone prior to intubating who agreed. I have added azithromycin IV, metronidazole IV, voriconazole IV today but patient yet has to receive a dose as is orders were just placed. Current vent settings 100/8/16/550. He was intubated this afternoon around 3:30 PM. Offload during this hospital stay he was found to have osteomyelitis of his left toe and he has cellulitis around that area. There is also report of a sacral ulcer. Furthermore patient has a UTI with Klebsiella oxytoca. Report is attached with this summary. Arterial Dopplers were also done which show some degree of stenosis suggesting peripheral vascular disease. Surgery service or podiatry service has not been consulted yet since patient's cell counts are very low at this time. He does want to continue chemotherapy and ideally possible amputation would be in his best interest. Patient will need ICU level care with oncology, infectious disease, pulmonology and nephrology on consult. Patient is vitally stable at this time and will be transferred to [facility] [place]. Propofol was stopped due to pt being bradycardic. CUrrently on versed and fentanyl Case was discussed with Dr. Vila, hospitalist who generously accepted this patient. Active diagnosis: #Severe neutropenia/pancytopenia #Severe thrombocytopenia/pancytopenia #Metabolic acidosis #Small cell lung cancer, on chemotherapy?last cycle July 25 #Obstructive sleep apnea, requires BiPAP #COPD #Osteomyelitis of left toe #Left upper lobe pneumonia #Pleural Effusion status post thoracentesis #UTI with Klebsiella oxytoca #Diabetes mellitus, insulin-dependent #Hypertension #Coronary artery disease history #Vent dependent Acute respiratory failure with hypercarbia #Anxiety and depression #History of afibrillation #Pulmonary hypertension Physical Exam Narrative: General: Intubated,sedated Cardio: Regular rate rhythm, normal S1-S2, muffled heart sounds secondary to large body habitus Respiratory: Transmitted breath sounds from vent, diminished at bases, GI: Abdomen soft, nontender, nondistended, obese large rounded abdomen bowel sounds + Extremities: A lot of excoriations seen on lower extremities.? Trace bilateral edema.? Some skin breakdown on left great toe as well as some erythema. Urinary Catheter Management: Blackwell Latex: Cath Placed During This Visit: yes Reason for Continuing Indwelling Catheter: Accurate Measurement of Urinary Output in Critically Ill Patients Urinary Catheter Date of Insertion: 08/03/21 Urinary Catheter Time of Insertion: 18:00 TS Data Studies Completed and Pending Pending at discharge Category Date Time Status XR sacrum coccyx min 2V [id number] Routine Exams 08/06/21 12:25 Ordered ABO/Rh Type Routine Lab 08/02/21 19:20 Results ABO/Rh Type Stat Lab 08/06/21 09:15 Results Blood Culture Stat Lab 08/03/21 08:09 Results Blood Culture Stat Lab 08/06/21 16:19 Ordered CBC Auto Diff [Complete Blood Count w/Auto] Routine Lab 08/06/21 18:19 Ordered CK [Creatine Phosphokinase] Routine Lab 08/07/21 10:45 Ordered CMP [Comprehensive Metabolic Panel] Routine Lab 08/06/21 18:19 Ordered Complete Crossmatch Routine Lab 08/02/21 19:20 Results Complete Crossmatch Stat Lab 08/06/21 09:15 Results Mycobacteria, Culture w/Fluor Routine Lab 08/03/21 13:40 Results Platelet Pher, IR,LR, CMV Neg Stat Lab 08/06/21 09:15 Results Platelets Leukoreduced Irradia Stat Lab 08/05/21 12:21 Results Platelets Leukoreduced Irradia Stat Lab 08/06/21 09:15 Results Sputum Culture and Gram Stain Stat Lab 08/06/21 14:20 Results Type and Screen Routine Lab 08/02/21 19:20 Results Urine Culture Stat Lab 08/06/21 16:19 Uncollected Vancomycin Random AM LABS Lab 08/07/21 04:00 Ordered Labs from last 24 hours 08/06/21 08/06/21 08/06/21 12:52 12:24 11:41 WBC RBC Hgb Hct MCV MCH MCHC RDW Plt Count MPV Neut % (Auto) Lymph % (Auto) Thayer % (Auto) Eos % (Auto) Baso % (Auto) Neut # (Auto) Lymph # (Auto) Thayer # (Auto) Eos # (Auto) Baso # (Auto) Nucleated RBC % (auto) Nucleated RBCs # Specimen Type Arterial Sample Site Radial, left ABG pH 7.22 L ABG pCO2 42.9 ABG pO2 92.8 ABG HCO3 17.5 L ABG O2 Saturation 97.2 ABG Base Excess -9.8 L Valentino Test Pos A-a O2 Gradient Not Reportable Hematocrit 35.1 L Hgb O2 Saturation 95.4 Carboxyhemoglobin 1.1 Methemoglobin 0.7 Total Hemoglobin 11.5 L Ionized Calcium 1.3 O2 Delivery Device Bipap FiO2 4.0 PEEP 8.0 Fine Patcher ID Karan Sodium 138.0 Potassium 4.7 Chloride Carbon Dioxide Anion Gap BUN Creatinine GFR Calculation Glucose 151.0 H POC Glucose 155 H Calculated Osmolality Lactate 0.7 Calcium Magnesium Vancomycin Trough Blood Type Rho(D) Type 08/06/21 08/06/21 08/06/21 09:15 06:40 06:40 WBC RBC Hgb Hct MCV MCH MCHC RDW Plt Count MPV Neut % (Auto) Lymph % (Auto) Thayer % (Auto) Eos % (Auto) Baso % (Auto) Neut # (Auto) Lymph # (Auto) Thayer # (Auto) Eos # (Auto) Baso # (Auto) Nucleated RBC % (auto) Nucleated RBCs # Specimen Type Sample Site ABG pH ABG pCO2 ABG pO2 ABG HCO3 ABG O2 Saturation ABG Base Excess Valentino Test A-a O2 Gradient Hematocrit Hgb O2 Saturation Carboxyhemoglobin Methemoglobin Total Hemoglobin Ionized Calcium O2 Delivery Device FiO2 PEEP Fine Patcher ID Sodium 137 Potassium 4.7 Chloride 109 H Carbon Dioxide 18 L Anion Gap 14.7 BUN 64 H Creatinine 1.9 H GFR Calculation Not Reportable Glucose 140 H POC Glucose Calculated Osmolality 305 H Lactate Calcium 7.9 L Magnesium 2.1 Vancomycin Trough 42.7 H* Blood Type A Positive Rho(D) Type Positive 08/06/21 08/06/21 08/05/21 06:40 06:37 20:40 WBC 1.0 L RBC 3.09 L Hgb 9.4 L Hct 29.7 L MCV 96.1 H MCH 30.4 MCHC 31.6 D RDW 15.9 H Plt Count 9 L* D MPV 12.2 H Neut % (Auto) 1.9 Lymph % (Auto) 87.9 Thayer % (Auto) 5.1 Eos % (Auto) 5.1 Baso % (Auto) 0.0 Neut # (Auto) 0.02 L* Lymph # (Auto) 0.9 Thayer # (Auto) 0.1 L Eos # (Auto) 0.1 Baso # (Auto) 0.0 Nucleated RBC % (auto) 0 Nucleated RBCs # 0.0 Specimen Type Sample Site ABG pH ABG pCO2 ABG pO2 ABG HCO3 ABG O2 Saturation ABG Base Excess Valentino Test A-a O2 Gradient Hematocrit Hgb O2 Saturation Carboxyhemoglobin Methemoglobin Total Hemoglobin Ionized Calcium O2 Delivery Device FiO2 PEEP Fine Patcher ID Sodium Potassium Chloride Carbon Dioxide Anion Gap BUN Creatinine GFR Calculation Glucose POC Glucose 137 H 153 H Calculated Osmolality Lactate Calcium Magnesium Vancomycin Trough Blood Type Rho(D) Type Completed Studies During Hospitalization Category Date Time Status CT chest wo con [id number] Stat Cat Scan 08/02/21 23:54 Completed CXRP [XR chest 1V portable [id number]] Routine Exams 08/06/21 13:55 Completed XR chest 1V portable [id number] Routine Exams 08/04/21 07:41 Completed XR chest 1V portable [id number] Stat Exams 08/03/21 13:41 Completed XR chest 1V portable [id number] Stat Exams 08/06/21 10:03 Completed XR chest 1V portable [id number] Urgent Exams 08/02/21 17:29 Completed XR foot LT 2V [id number] Routine Exams 08/04/21 09:42 [place] [id number] Routine Ultrasound 08/04/21 11:52 Completed [place] thoracentesis [id number] Routine Ultrasound 08/03/21 09:59 Completed Laboratory Last Values WBC 1.0 10^3/uL (4.0-10.0) L 08/06/21 06:40 RBC 3.09 10^6/uL (4.1-5.3) L 08/06/21 06:40 Hgb 9.4 g/dL (11.7-16.6) L 08/06/21 06:40 Hct 29.7 % (42.0-52.0) L 08/06/21 06:40 MCV 96.1 fl (80-94) H 08/06/21 06:40 MCH 30.4 pg (28.0-34.0) 08/06/21 06:40 MCHC 31.6 g/dL (30.0-36.0) D 08/06/21 06:40 RDW 15.9 % (12.1-15.1) H 08/06/21 06:40 Plt Count 9 10^3/cmm (130-400) L* D 08/06/21 06:40 MPV 12.2 fL (7.4-10.4) H 08/06/21 06:40 Neut % (Auto) 1.9 % 08/06/21 06:40 Lymph % (Auto) 87.9 % 08/06/21 06:40 Thayer % (Auto) 5.1 % 08/06/21 06:40 Eos % (Auto) 5.1 % 08/06/21 06:40 Baso % (Auto) 0.0 % 08/06/21 06:40 Neut # (Auto) 0.02 10^3/uL (1.8-7.7) L* 08/06/21 06:40 Lymph # (Auto) 0.9 10^3/uL (0.8-4.8) 08/06/21 06:40 Thayer # (Auto) 0.1 10^3/uL (0.2-0.9) L 08/06/21 06:40 Eos # (Auto) 0.1 10^3/uL (0.0-0.8) 08/06/21 06:40 Baso # (Auto) 0.0 10^3/uL (0.0-0.1) 08/06/21 06:40 Nucleated RBC % (auto) 0 % 08/06/21 06:40 Nucleated RBCs # 0.0 /100WBC 08/06/21 06:40 Differential Comment Yes 08/03/21 13:40 PT 14.30 SECONDS (12.1-14.9) 08/03/21 11:05 INR 1.08 (0.8-1.2) 08/03/21 11:05 APTT 35.3 SECONDS (23.9-36.7) 08/03/21 11:05 Specimen Type Arterial 08/06/21 11:41 Sample Site Radial, left 08/06/21 11:41 ABG pH 7.22 (7.35-7.45) L 08/06/21 11:41 ABG pCO2 42.9 mmHg (35-45) 08/06/21 11:41 ABG pO2 92.8 mmHg (80.0-100.0) 08/06/21 11:41 ABG HCO3 17.5 mmol/L (22-26) L 08/06/21 11:41 ABG O2 Saturation 97.2 08/06/21 11:41 ABG Base Excess -9.8 mmol/L (-2.0-2.0) L 08/06/21 11:41 Valentino Test Pos 08/06/21 11:41 A-a O2 Gradient Not Reportable 08/06/21 11:41 Hematocrit 35.1 % (42-52) L 08/06/21 11:41 Hgb O2 Saturation 95.4 % (95-100) 08/06/21 11:41 Carboxyhemoglobin 1.1 %THgb (0.4-20.1) 08/06/21 11:41 Methemoglobin 0.7 % (0.4-1.5) 08/06/21 11:41 Total Hemoglobin 11.5 g/dL (14-18) L 08/06/21 11:41 Sodium 138.0 mmol/L (131-143) 08/06/21 11:41 Potassium 4.7 mmol/L (3.5-5.0) 08/06/21 11:41 Glucose 151.0 mg/dL (70-115) H 08/06/21 11:41 Ionized Calcium 1.3 mmol/L (1.1-1.4) 08/06/21 11:41 O2 Delivery Device Bipap 08/06/21 11:41 O2 Liters/Min 6.0 % 08/03/21 07:17 FiO2 4.0 % 08/06/21 11:41 PEEP 8.0 cmH20 08/06/21 11:41 Fine Patcher ID Karan 08/06/21 11:41 Sodium 137 mmol/L (136-145) 08/06/21 06:40 Potassium 4.7 mmol/L (3.5-5.1) 08/06/21 06:40 Chloride 109 mmol/L (98-107) H 08/06/21 06:40 Carbon Dioxide 18 mmol/L (22-29) L 08/06/21 06:40 Anion Gap 14.7 (5-19) 08/06/21 06:40 BUN 64 mg/dL (8-23) H 08/06/21 06:40 Creatinine 1.9 mg/dL (0.7-1.2) H 08/06/21 06:40 GFR Calculation Not Reportable 08/06/21 06:40 Glucose 140 mg/dL (65-115) H 08/06/21 06:40 POC Glucose 155 mg/dL (70-110) H 08/06/21 12:24 Calculated Osmolality 305 mOsm/kg (285-295) H 08/06/21 06:40 Lactic Acid 0.8 mmol/L (0.5-2.2) 08/03/21 11:05 Lactate 0.7 mmol/L (0.5-2.2) 08/06/21 12:52 Calcium 7.9 mg/dL (8.5-10.5) L 08/06/21 06:40 Magnesium 2.1 mg/dL (1.7-2.3) 08/06/21 06:40 Total Bilirubin 0.3 mg/dL (0.15-1.2) 08/05/21 04:19 AST 12 U/L (0-40) 08/05/21 04:19 ALT 12 U/L (0-41) 08/05/21 04:19 Alkaline Phosphatase 57 IU/L (40-130) 08/05/21 04:19 Troponin T Baseline 71 ng/L (0-15) H 08/03/21 00:55 Troponin T 120 Minute 66.24 ng/L (0-15) H 08/03/21 02:00 Delta Troponin T -4.76 ABS# (0-10) L 08/03/21 02:00 Troponin T Hi Sens 6Hr 72.66 ng/L (0-15) H 08/03/21 06:45 Troponin T Hi Sens 6Hr Delta 1.66 ng/L (0-12) 08/03/21 06:45 NT-Pro-B Natriuret Pep 2858 pg/mL (0-450) H 08/03/21 00:55 Total Protein 5.3 g/dL (6.6-8.7) L 08/05/21 04:19 Albumin 2.8 g/dL (3.5-5.2) L 08/05/21 04:19 Globulin 2.5 g/dL (1.3-4.6) 08/05/21 04:19 Urine Color Yellow (Yellow) 08/03/21 08:28 Urine Appearance Clear (CLEAR) 08/03/21 08:28 Urine pH 5 (5-7) 08/03/21 08:28 Ur Specific [place] 1.015 (1.005-1.030) 08/03/21 08:28 Urine Protein 1+ (Negative) H 08/03/21 08:28 Urine Glucose (UA) 4+ (Normal) H 08/03/21 08:28 Urine Ketones Negative (Negative) 08/03/21 08:28 Urine Blood 2+ (Negative) H 08/03/21 08:28 Urine Nitrate Negative (Negative) 08/03/21 08:28 Urine Bilirubin Neg (Negative) 08/03/21 08:28 Urine Urobilinogen Norm mg/dL (Negative) 08/03/21 08:28 Ur Leukocyte Esterase Negative (Negative) 08/03/21 08:28 Urine RBC 0-4 /hpf (0-2) H 08/03/21 08:28 Urine WBC 0-4 /hpf (0-5) H 08/03/21 08:28 Ur Squamous Epith Cells None /hpf (0-5) 08/03/21 08:28 Amorphous Sediment Not Reportable 08/03/21 08:28 Urine Bacteria 2+ /hpf (NONE) H 08/03/21 08:28 Urine Mucus N /hpf 08/03/21 08:28 Fluid Color Yellow 08/03/21 13:40 Fluid Appearance Clear 08/03/21 13:40 Fluid WBC 800 /uL 08/03/21 13:40 Fluid RBC 4.000 10^3/uL 08/03/21 13:40 Fluid Hematocrit 0.0 % 08/03/21 13:40 Fld Polynuclear WBCs # 0.067 08/03/21 13:40 Fld Polynuclear WBCs % 8.300 % 08/03/21 13:40 Fl Mononucl WBCs #(Auto) 0.733 08/03/21 13:40 Fl Mononuclear % Auto 91.700 % 08/03/21 13:40 Fluid Albumin 1.1 g/dL 08/03/21 13:40 Fluid Creatinine 1.57 (0.7-1.2) H 08/03/21 13:40 Pleural pH 7.00 (6.5-7.5) 08/03/21 13:40 Pleural Total Protein 2.0 g/dL 08/03/21 13:40 Pleural LDH 136 U/L 08/03/21 13:40 Pleural Glucose 161.0 mg/dL 08/03/21 13:40 Pleural Amylase 36.0 U/L 08/03/21 13:40 Pleural Triglycerides 9 mg/dL 08/03/21 13:40 Nasal Influ A H1 2009 PCR Not detected (NOT DETECT) 08/02/21 19:01 Vancomycin Trough 42.7 ug/mL (10-15) H* 08/06/21 06:40 Salicylates < 0.3 mg/dL (3-10) L 08/03/21 11:05 Serum Ketones Negative (Negative) 08/03/21 11:05 Adenovirus (PCR) Not detected (NOT DETECT) 08/02/21 19:01 C. pneumoniae DNA (PCR) Not detected (NOT DETECT) 08/02/21 19:01 Coronavirus 229E (PCR) Not detected (NOT DETECT) 08/02/21 19:01 Human Metapneumovir PCR Not detected (NOT DETECT) 08/02/21 19:01 Influenza A (H1) PCR Not detected (NOT DETECT) 08/02/21 19:01 Influenza A (H3) PCR Not detected (NOT DETECT) 08/02/21 19:01 Influenza Type A (PCR) Not detected (NOT DETECT) 08/02/21 19:01 Influenza Type B (PCR) Not detected (NOT DETECT) 08/02/21 19:01 M. pneumoniae (PCR) Not detected (NOT DETECT) 08/02/21 19:01 Parainfluenza 1 (PCR) Not detected (NOT DETECT) 08/02/21 19:01 Parainfluenza 2 (PCR) Not detected (NOT DETECT) 08/02/21 19:01 Parainfluenza 3 (PCR) Not detected (NOT DETECT) 08/02/21 19:01 Parainfluenza 4 (PCR) Not detected (NOT DETECT) 08/02/21 19:01 RSV Type A (PCR) Not detected (NOT DETECT) 08/02/21 19:01 RSV Type B (PCR) Not detected (NOT DETECT) 08/02/21 19:01 Entero/Rhino (PCR) Not detected (NOT DETECT) 08/02/21 19:01 SARS-CoV-2 (PCR) Not detected (NOT DETECT) 08/02/21 19:01 Blood Type A Positive 08/06/21 09:15 Rho(D) Type Positive 08/06/21 09:15 Antibody Screen Negative 08/02/21 19:[address] 08/02/21 23:54 IMPRESSION: 1. Left upper lobe atelectasis. 2. Large left pleural effusion 3. Small right pleural effusion 4. Mildly increased mediastinal adenopathy 5. No change right upper lobe mass 6. Increased interstitial densities in the right lung which could represent interstitial edema versus is lymphangitic metastasis. 7. Mild right hilar adenopathy Thoracentesis Ultrasound 08/03/21 09:59 IMPRESSION: Uncomplicated ultrasound-guided thoracentesis. Foot X-Ray 08/04/21 09:42 IMPRESSION: 1. Bony destruction of the distal end of the distal phalanx of great toe with soft tissue swelling suspicious for acute osteomyelitis. 2. Mild degenerative changes. Vascular calcifications about the foot and ankle. Heel spurs. Duplex Scan Lower Extremity Artery 08/04/21 11:52 IMPRESSION: 1. Right lower extremity biphasic blood flow seen in the iliac, common femoral, proximal and mid femoral arteries reflecting a degree of stenosis. 2. Right lower extremity monophasic blood flow seen in the distal femoral artery, popliteal artery and dorsalis pedis artery reflecting a degree of stenosis. 3. Left lower extremity monophasic blood flow extending from the common femoral artery through the dorsalis pedis artery reflecting a degree of stenosis. Chest X-Ray 08/06/21 13:55 IMPRESSION: 1. Proper positioning of lines and tubes. 2. Similar focal opacity/atelectasis in the left upper lobe. Recent Clincial Data Last Vital Signs Temp 97.2 F L 08/06/21 16:01 Pulse 65 08/06/21 16:01 Resp 20 H 08/06/21 16:01 BP 127/61 08/06/21 13:41 Pulse Ox 92 08/06/21 16:01 Vital Signs Temp Pulse Resp BP Pulse Ox 08/06/21 16:01 97.2 F L 65 20 H 92 08/06/21 15:21 16 97 08/06/21 15:20 54 L 16 97 08/06/21 13:41 98.8 F 86 18 127/61 93 08/06/21 13:26 98.9 F 68 18 103/64 93 08/06/21 12:56 97.6 F 84 22 H 92/52 90 08/06/21 12:24 74 21 H 08/06/21 12:06 28 H 08/06/21 08:00 97.5 F L 74 19 H 135/72 97 08/06/21 07:52 72 16 94 08/06/21 07:50 72 94 Intake & Output/Weight 08/04/21 08/05/21 08/06/21 08/07/21 06:59 06:59 06:59 06:59 Intake Total 920 / 920 2513.167 / 2513.167 1845 / 1845 169.181 / 169.181 Output Total 850 / 850 1550 / 1550 3400 / 3400 Balance 70 / 70 963.167 / 963.167 -1555 / -1555 169.181 / 169.181 Weight 141.067 kg 143.517 kg Vitals Last Vital Signs Temp 97.2 F L 08/06/21 16:01 Pulse 65 08/06/21 16:01 Resp 20 H 08/06/21 16:01 BP 127/61 08/06/21 13:41 Pulse Ox 92 08/06/21 16:01 TS Medications Medications Acetaminophen (Acetaminophen 325 Mg Tablet) 650 mg PO Q6H PRN PRN Reason: MILD PAIN Last Admin: 08/04/21 05:46 Dose: 650 mg Documented by: Albuterol/Ipratropium (Ipratropium-Albuterol 3 Ml Neb) 3 ml INHALATION Q4H.RESPIRATORY DARRYL Last Admin: 08/06/21 15:18 Dose: 3 ml Documented by: Allopurinol (Allopurinol 100 Mg Tablet) 100 mg PO TID DARRYL Last Admin: 08/06/21 10:02 Dose: 100 mg Documented by: Atorvastatin Calcium (Atorvastatin 40 Mg Tablet) 80 mg PO DAILY DARRYL Last Admin: 08/06/21 10:02 Dose: 80 mg Documented by: Budesonide (Budesonide 0.5 Mg/2 Ml Neb) 0.5 mg INHALATION BID.RESPIRATORY DARRYL Last Admin: 08/06/21 07:49 Dose: 0.5 mg Documented by: Carvedilol (Carvedilol 3.125 Mg Tablet) 3.125 mg PO BID DARRYL Last Admin: 08/06/21 10:02 Dose: 3.125 mg Documented by: Dextrose (Dextrose 50% Syringe 50 Ml) 25 ml IVP ONCE PRN; Protocol PRN Reason: hypoglycemia protocol Dextrose (Dextrose 50% Syringe 50 Ml) 50 ml IVP PRN PRN; Protocol PRN Reason: hypoglycemia protocol Glucagon (Glucagon 1 Mg/Ml Inj 1 Ml) 1 mg IM ONCE PRN; Protocol PRN Reason: Adult Acute Hypoglycemia Prot. Dextrose (D5w) 500 mls @ 100 mls/hr IV ONCE PRN; Protocol PRN Reason: Adult Acute Hypoglycemia Prot Vancomycin HCl 2,000 mg/ (Sodium Chloride) 500 mls @ 250 mls/hr IV Q12H DARRYL Last Infusion: 08/05/21 22:56 Dose: Infused Documented by: Cefepime HCl 2,000 mg/ Sodium (Chloride) 50 mls @ 100 mls/hr IV Q12H DARRYL; Protocol Norepinephrine Bitartrate 4 mg (/ Dextrose) 254 mls @ 0 mls/hr IV .Q0M DARRYL; Protocol Last Admin: 08/06/21 14:00 Dose: 2 mcg/min, 7.62 mls/hr Documented by: Propofol (Diprivan) 1,000 mg in 100 mls @ 0 mls/hr IV .Q0M DARRYL; Protocol Last Titration: 08/06/21 15:07 Dose: 15 mcg/kg/min, 12.92 mls/hr Documented by: Fentanyl 2,500 mcg/ Sodium (Chloride) 250 mls @ 0 mls/hr IV .Q0M DARRYL; Protocol Last Admin: 08/06/21 15:16 Dose: 100 mcg/hr, 10 mls/hr Documented by: Midazolam HCl 100 mg/ Sodium (Chloride) 100 mls @ 0 mls/hr IV .Q0M DARRYL; Protocol Last Admin: 08/06/21 14:00 Dose: 2 mg/hr, 2 mls/hr Documented by: Metronidazole (Flagyl Iv) 500 mg in 100 mls @ 100 mls/hr IV Q8H DARRYL; Protocol Azithromycin 500 mg/ Sodium (Chloride) 250 mls @ 250 mls/hr IV Q24H DARRYL; Protocol Last Admin: 08/06/21 16:53 Dose: 250 mls/hr Documented by: Voriconazole 200 mg/ Sodium (Chloride) 250 mls @ 250 mls/hr IV Q12H DARRYL Insulin Human Lispro (Insulin Lispro 100 Unit/1 Ml) 0 unit SUBCUT WM&BEDTIME DARRYL; Protocol Last Admin: 08/06/21 12:44 Dose: 2 unit Documented by: Morphine Sulfate (Morphine 4 Mg/Ml Sdv 1 Ml) 2 mg IVP Q4H PRN PRN Reason: SEVERE PAIN Last Admin: 08/04/21 22:04 Dose: 2 mg Documented by: Neomycin/Polymyxin/Bacitracin (Nikkvszz-Oxgq-Znpvxhwmcv Oint 28 Gm) 1 applic TOPICAL PRN PRN PRN Reason: prophylaxis Ondansetron HCl (Ondansetron 2 Mg/Ml Sdv 2 Ml) 4 mg IVP Q6H PRN PRN Reason: NAUSEA AND VOMITING Oxycodone HCl (Oxycodone 5 Mg Ir Tab/Cap) 10 mg PO Q4H PRN PRN Reason: SEVERE PAIN Last Admin: 08/06/21 12:06 Dose: 10 mg Documented by: Pantoprazole Sodium (Pantoprazole Dr 40 Mg Tablet) 40 mg PO DAILY [facility] Last Admin: 08/06/21 10:02 Dose: 40 mg Documented by: Sertraline HCl (Sertraline 100 Mg Tablet) 100 mg PO DAILY [facility] Last Admin: 08/06/21 10:02 Dose: 100 mg Documented by: Sodium Bicarbonate (Sodium Bicarbonate 650 Mg Tablet) 650 mg PO BID [facility] Tamsulosin HCl (Tamsulosin 0.4 Mg Capsule) 0.4 mg PO DAILY [facility] [facility] Last Admin: 08/06/21 10:02 Dose: 0.4 mg Documented by: Topiramate (Topiramate 100 Mg Tablet) 200 mg PO DAILY [facility] Last Admin: 08/06/21 10:02 Dose: 200 mg Documented by: Discontinued Medications Hydrocodone Bitart/Acetaminophen (Hydrocodone-Acetaminophen 5-325 Mg Tablet) 1 tab PO Q6H PRN PRN Reason: pain Last Admin: 08/04/21 08:30 Dose: 1 tab Documented by: Albuterol/Ipratropium (Ipratropium-Albuterol 3 Ml Neb) 3 ml INHALATION Q4H [facility] Last Admin: 08/05/21 00:22 Dose: 3 ml Documented by: Amlodipine Besylate (Amlodipine 10 Mg Tablet) 10 mg PO ONCE ONE Stop: 08/02/21 18:09 Last Admin: 08/02/21 21:10 Dose: 10 mg Documented by: Carvedilol (Carvedilol 6.25 Mg Tablet) 6.25 mg PO BID [facility] Last Admin: 08/04/21 09:13 Dose: 6.25 mg Documented by: Etomidate (Etomidate 2 Mg/Ml Inj) 40 mg IVP NOW ONE Stop: 08/06/21 15:05 Last Admin: 08/06/21 15:06 Dose: 40 mg Documented by: Sodium Chloride (Sodium Chloride 0.9%) 500 mls @ 500 mls/hr IV ONCE ONE Stop: 08/02/21 18:29 Last Infusion: 08/02/21 21:11 Dose: Infused Documented by: Cefepime HCl 2,000 mg/ Sodium (Chloride) 50 mls @ 100 mls/hr IV ONCE ONE; Protocol Stop: 08/03/21 08:38 Last Admin: 08/03/21 15:15 Dose: Not Given Documented by: Sodium Chloride (Sodium Chloride 0.9%) 1,000 mls @ 75 mls/hr IV .[id number] DARRYL Last Admin: 08/03/21 15:16 Dose: Not Given Documented by: Vancomycin HCl 1,500 mg/ (Sodium Chloride) 250 mls @ 166.667 mls/hr IV Q18H [facility] Last Infusion: 08/04/21 10:37 Dose: Infused Documented by: Cefepime HCl 2,000 mg/ Sodium (Chloride) 50 mls @ 100 mls/hr IV Q12H [facility]; Protocol Last Infusion: 08/06/21 10:31 Dose: Infused Documented by: Sodium Chloride (Sodium Chloride 0.9%) 1,000 mls @ 50 mls/hr IV .Q20H [facility] Last Infusion: 08/04/21 07:50 Dose: 0 mls/hr Documented by: Sodium Chloride (Sodium Chloride 0.9%) 250 mls @ 250 mls/hr IV ONCE ONE Stop: 08/04/21 16:08 Last Infusion: 08/04/21 16:36 Dose: Infused Documented by: Cefepime HCl 2,000 mg/ Sodium (Chloride) 50 mls @ 100 mls/hr IV Q24H [facility]; Protocol Voriconazole 800 mg/ Sodium (Chloride) 250 mls @ 250 mls/hr IV Q12H [facility] Stop: 08/07/21 06:59 Lidocaine HCl (Lidocaine 1% Inj 20 Ml) 10 ml .ROUTE .STK-MED ONE Stop: 08/03/21 13:14 Succinylcholine Chloride (Succinylcholine 20 Mg/Ml Sdv 10ml) 140 mg IVP NOW ONE Stop: 08/06/21 13:33 Last Admin: 08/06/21 15:00 Dose: 140 mg Documented by: Tetanus/Diphtheria Toxoids Adsorbed (Tetanus-Diphtheria Tox (Adult) 0.5 Ml Sdv) 0.5 ml IM .ONCE ONE Stop: 08/04/21 08:01 Last Admin: 08/04/21 08:50 Dose: 0.5 ml Documented by: Allergies Iodinated Contrast Media Allergy (Verified 08/02/21 11:41) ADR-Itching Home Medications cholecalciferol (vitamin D3) 25 mcg (1,000 unit) capsule 25 mcg PO DAILY 01/25/21 [History Confirmed 08/02/21] cilostazol 100 mg tablet 50 mg PO BID tab 01/25/21 [History Confirmed 08/02/21] insulin glargine 100 unit/mL subcutaneous solution (Lantus U-100 Insulin) 3 unit SUBCUT DAILY ml 01/25/21 [History Confirmed 08/02/21] lisinopril 40 mg tablet 20 mg PO BID tab 01/25/21 [History Confirmed 08/02/21] nebulizers #1 ea 01/25/21 [Rx Confirmed 08/02/21] omega-3 fatty acids 1,000 mg capsule (Fish Oil Concentrate) 1,000 mg PO BID 01/25/21 [History Confirmed 08/02/21] rosuvastatin 40 mg tablet 20 mg PO DAILY tab 01/25/21 [History Confirmed 08/02/21] sertraline 100 mg tablet 100 mg PO DAILY 01/25/21 [History Confirmed 08/02/21] carvedilol 12.5 mg tablet 6.25 mg PO BID tab 02/01/21 [History Confirmed 08/02/21] multivitamin 1 tab PO DAILY 02/01/21 [History Confirmed 08/02/21] tamsulosin 0.4 mg capsule 0.4 mg PO DAILY 05/19/21 [History Confirmed 08/02/21] topiramate 200 mg tablet 200 mg PO DAILY tab 05/23/21 [History Confirmed 08/02/21] furosemide 20 mg tablet 20 mg PO DAILY 06/29/21 [History Confirmed 08/02/21] allopurinol 100 mg tablet 100 mg PO TID #40 tab 07/13/21 [Rx Confirmed 08/02/21] hydrocodone 5 mg-acetaminophen 325 mg tablet 1 tab PO Q6H PRN #10 tab 07/19/21 [Rx Confirmed 08/02/21] lorazepam 1 mg tablet 0.5 - 1 mg PO Q6H PRN #30 tab 07/25/21 [Rx Confirmed 08/02/21] olanzapine 5 mg tablet 5 mg PO QPM #30 tab 07/25/21 [Rx Confirmed 08/02/21] prochlorperazine maleate 10 mg tablet (Compazine) 10 mg PO Q4H PRN #30 tab 07/25/21 [Rx Confirmed 08/02/21] albuterol sulfate 90 mcg/actuation aerosol inhaler 2 puff INHALATION QID PRN 08/02/21 [History Confirmed 08/02/21] empagliflozin 10 mg tablet (Jardiance) 10 mg PO DAILY 08/02/21 [History Confirmed 08/02/21] Discharge Plan Discharge Patient Disposition: Xfer Other Condition: Stable Prescriptions: No Action rosuvastatin 40 mg tablet 20 mg PO DAILY 0RF lisinopril 40 mg tablet 20 mg PO BID 0RF cilostazol 100 mg tablet 50 mg PO BID 0RF sertraline 100 mg tablet 100 mg PO DAILY 0RF omega-3 fatty acids [Fish Oil Concentrate] 1,000 mg capsule 1,000 mg PO BID 0RF cholecalciferol (vitamin D3) 25 mcg (1,000 unit) capsule 25 mcg PO DAILY 0RF Lantus U-100 Insulin 100 unit/mL solution 3 unit SUBCUT DAILY 0RF (DME) nebulizers Misc See Rx Instructions .Route Qty: 1 0RF Rx Instructions: give 1 nebulizer with accessories to use as directed carvedilol 12.5 mg tablet 6.25 mg PO BID 0RF Rx Instructions: must administer with a meal/food topiramate 200 mg tablet 200 mg PO DAILY 0RF multivitamin Tablet 1 tab PO DAILY 0RF furosemide 20 mg tablet 20 mg PO DAILY 0RF allopurinol 100 mg tablet 100 mg PO TID Qty: 40 1RF tamsulosin 0.4 mg capsule 0.4 mg PO DAILY 0RF hydrocodone-acetaminophen 5-325 mg tablet 1 tab PO Q6H PRN (Reason: pain) Qty: 10 0RF olanzapine 5 mg Tablet 5 mg PO QPM Qty: 30 3RF Rx Instructions: Take for 5 days post chemo. prochlorperazine maleate [Compazine] 10 mg Tablet 10 mg PO Q4H PRN (Reason: Mild Nausea) Qty: 30 3RF lorazepam 1 mg Tablet 0.5 - 1 mg PO Q6H PRN (Reason: Severe Nausea) Qty: 30 3RF Jardiance 10 mg Tablet 10 mg PO DAILY 0RF albuterol sulfate 90 mcg/actuation Hfa Aerosol Inhaler 2 puff INHALATION QID PRN (Reason: Shortness Of Breath) 0RF Referrals: Contreras Hanson DO [Primary Care Provider] - Transfer Attestations Time Spent in Transfer Care: critical care time Critical Care Time (min): 45 Quality Metrics Clinical Quality Measures [ No reported AMI, CVA or VTE this stay] Coding Level of Care Code Acute Curb Attendant for Chg Fwd Diagnoses Pneumonia J18.9 Pleural effusion, left J90 Acute respiratory failure J96.00 CKD (chronic kidney disease) N18.9 New onset atrial fibrillation I48.91 Ischemic cardiomyopathy I25.5 Pleural effusion J90 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 transplanted heart: habematolel heart Associated angina: unspecified whether angina present CHF (congestive heart failure) I50.23 Heart failure type: systolic Heart failure chronicity: acute on chronic Time Spent (min) 120
[2021-08-06] MEDS: sodium bicarbonate 650 mg Tablet PO (18:53)
[2021-08-06] MEDS: metroNIDAZOLE IV 500 MG/100 ML PREMIX 100 MG IV (18:53)
[2021-08-06 19:03] LABS: Glucose Point of Care 203 mg/dL (70-110)
--- NOTE | 2021-08-06 19:33 | PC.NURSE ---
AT 1335, patient was transferred to ICU where he was intubated shortly after arrival by Dr johnson. Central line also placed by Dr johnson. At time of arirval on unit, patient,s BP was 127/61, HR: 77, RR: 14, SPO2 84%, Tempt: 97.9.
--- NOTE | 2021-08-06 19:37 | PC.NURSE ---
Received accepting at [facility] in [place], [place]. ICU bed *. Accepted by Dr walker. Report called to Sunny Key RN in the ICU. Pending arrival By air evac.
--- NOTE | 2021-08-06 22:32 | PC.NURSE ---
Patient DC per [facility] crew. Family at side, gave consent. VSS. On Levophed, Fentanyl and Versed. VSS. DC at 2044
--- NOTE | 2021-08-06 23:45 | PC.NURSE ---
Patient to be transported by ground. Patient's body size is not adequate for air transportation. Dr. Shafer gave verbal consent for patient to be transported by ambulance. Receiving facility updated on change of transportation and estimated time of arrival.
--- NOTE | 2021-08-06 23:54 | PC.NURSE ---
Patient sedated and intubate at time of transport. Patient placed on portable monitoring and vent. , Kathleen Gutierrez, signed consent for transportation. All belongings sent with family.
== END 2021-08-06 20:45 | disposition short-term general hospital (02) | DRG 193 ==
LOC: ER 17:35 → ER IP 22:21 → ICU 08-03 14:59 → MEDSURG 08-04 22:43 → ICU 08-06 13:39
PROVIDERS: Emergency Medicine; Internal Medicine; Admitting Provider Internal Medicine; Emergency Provider Family Medicine; PCP Emergency Medicine Emergency Medical Services; Visit Provider Internal Medicine
DX: J18.9 Pneumonia, unspecified organism (principal); L89.153 Pressure ulcer of sacral region, stage 3; I50.23 Acute on chronic systolic (congestive) heart failure; J96.02 Acute respiratory failure with hypercapnia; J96.01 Acute respiratory failure with hypoxia; J44.0 Chronic obstructive pulmonary disease with (acute) lower respiratory infection; C34.12 Malignant neoplasm of upper lobe, left bronchus or lung; I13.0 Hypertensive heart and chronic kidney disease with heart failure and stage 1 through stage 4 chronic kidney disease, or unspecified chronic kidney disease; M86.9 Osteomyelitis, unspecified; E66.2 Morbid (severe) obesity with alveolar hypoventilation; N39.0 Urinary tract infection, site not specified; N17.9 Acute kidney failure, unspecified; D61.818 Other pancytopenia; E87.4 Mixed disorder of acid-base balance; J90 Pleural effusion, not elsewhere classified; Z79.899 Other long term (current) drug therapy; F41.8 Other specified anxiety disorders; N40.0 Benign prostatic hyperplasia without lower urinary tract symptoms; E11.22 Type 2 diabetes mellitus with diabetic chronic kidney disease; N18.9 Chronic kidney disease, unspecified; E11.69 Type 2 diabetes mellitus with other specified complication; E11.51 Type 2 diabetes mellitus with diabetic peripheral angiopathy without gangrene; I25.5 Ischemic cardiomyopathy; I48.91 Unspecified atrial fibrillation; Z68.39 Body mass index [BMI] 39.0-39.9, adult; I27.20 Pulmonary hypertension, unspecified; Z87.891 Personal history of nicotine dependence; I25.10 Atherosclerotic heart disease of native coronary artery without angina pectoris; Z95.1 Presence of aortocoronary bypass graft; E86.0 Dehydration; Z99.81 Dependence on supplemental oxygen; B96.1 Klebsiella pneumoniae [K. pneumoniae] as the cause of diseases classified elsewhere; Z79.4 Long term (current) use of insulin; L03.032 Cellulitis of left toe; E78.5 Hyperlipidemia, unspecified; D69.6 Thrombocytopenia, unspecified; G89.29 Other chronic pain; D70.9 Neutropenia, unspecified
CPT/HCPCS: 32555; 36415; 36416; 36430; 36591; 36600; 51702; 51798; 71045; 71250; 73620; 80048; 80051; 80053; 80202; 80307; 80503; 81001; 82009; 82042; 82150; 82330; 82570; 82805; 82945; 82962; 83605; 83615; 83735; 83880; 83986; 84157; 84478; 84484; 85007; 85014; 85025; 85610; 85730; 86850; 86900; 87015; 87040; 87070; 87075; 87077; 87086; 87116; 87186; 87205; 87206; 87486; 87581; 87633; 87641; 87801; 89050; 90471; 90714; 93005; 93925; 94002; 94640; 94660; 94762; 94799; 96365; 96366; 96367; 96372; 99215; 99291; J0330; J0456; J0692; J1815; J2250; J2270; J2704; J3010; J3370; J3465; J3490; J7030; J7040; J7050; J7626; P9037; P9040; P9053; S0030